=== PATIENT | female | born 1950 | race Caucasian/White ===

== ENCOUNTER 2020-10-17 11:20 | Emergency (ER) | payer OTHER, SELFPAY ==
--- NOTE | ~2020-10-17 | XR_ITS ---
EXAMINATION: XR CHEST CLINICAL INFORMATION: Chest pain and shortness of breath. COMPARISON: None TECHNIQUE: Frontal view of the chest was obtained. FINDINGS: The cardiomediastinal and hilar contours are within normal limits. The aorta is heavily tortuous and heavily calcified at the arch. There is increased airspace opacity at the base of the left lung which is concerning for pneumonia. No large effusion. At the base of the right lung is an approximately 1.1 cm nodular opacity. The right lung is otherwise clear. No pneumothorax. XR/XR chest 1V IMPRESSION: Increased airspace opacity at the base of the left lung is concerning for pneumonia. At the base of the right lung is a 1.1 cm nodular opacity likely be evaluated. Consider evaluation with CT.
--- NOTE | ~2020-10-17 | CT_ITS ---
EXAMINATION: CT ANGIOGRAM OF THE CHEST WITH AND WITHOUT CONTRAST (CT PULMONARY ANGIOGRAM FOR PE) CLINICAL INFORMATION: Reason for Exam CP recent procedure COMPARISON: Chest radiograph done on 10/17/2020. TECHNIQUE: Prior to contrast administration, noncontrast localization images were obtained. Subsequently, multidetector volumetric imaging was performed from the thoracic inlet to below the diaphragms following the administration of 65 mL Omnipaque 350 intravenous contrast. No contrast reaction reported Sagittal, coronal, and MIP oblique sagittal reformatted images were obtained on the CT workstation, uploaded to PACS, and reviewed. This CT examination was performed using dose optimization techniques as appropriate, variously including the following: *Automated exposure control *Adjustment of mA and/or kV according to patient size (this includes techniques or standardized protocols for targeted exams where dose is matched to indication/reason for exam; i.e. extremities or head) *Use of iterative reconstruction technique Total exam dose-length product 209 mGy-cm FINDINGS: QUALITY OF STUDY/CONTRAST BOLUS: Satisfactory. PULMONARY ARTERIES: No central or segmental pulmonary emboli. THORACIC AORTA: No aneurysm or dissection. Moderate to severe diffuse atherosclerotic disease of the aorta and is branches are noted. LUNG: Moderate emphysematous disease is present. Superimposed partial collapse consolidation of the left upper lobe is noted. On this contrast-enhanced study, there is an area of heterogeneous nonenhancement identified along the anterior superior medial aspect of the consolidated part of the left upper lobe, suspicious for neoplasm. Patchy groundglass airspace disease is also noted within the lingular segment of the left upper lobe. Pleural-based somewhat linear enhancing opacities are noted at both lung bases (left greater than right). The tracheobronchial tree is patent however, partial obstruction of the left upper lobar bronchus is noted. PLEURA: Small volume nondrainable left-sided pleural effusion is seen likely loculated on the within the mid left hemithorax. MEDIASTINUM: Normal heart size. No pericardial effusion. Asymmetric left supra, perihilar as well as para-aortic lobulated hypodensities are noted, most consistent with lymphadenopathy. Given the presence of left upper lobar lung parenchymal disease, the finding may represent metastatic lymphadenopathy.. No evidence of septal bowing or right heart strain. Atherosclerotic disease is present within the aorta and is branches including coronary artery calcifications. CHEST WALL/AXILLA: No axillary or internal mammary lymphadenopathy. OSSEOUS STRUCTURES: Nonspecific focal area of osteolysis is present at superolateral aspect of the T1 vertebral body (image #[id number] series 9). Moderate compression deformity of T6 vertebral body is also noted. UPPER ABDOMEN: Multiple hypodense lesions are present involving the left kidney including exophytic hypodensity. The right kidney shows heterogeneous hypoechoic large hypodense areas, may represent complicated cyst. Exophytic solid lesion is not excluded. Evaluation is technically limited. Diffuse hypodensity is noted involving the left adrenal gland appears thickened without any discrete mass. No evidence of any right adrenal mass. No reflux of contrast into the hepatic veins to suggest elevated right heart pressures. CT/CT angio chest PE protocol IMPRESSION: 1. Moderate emphysematous disease and superimposed partial collapse consolidation of left upper lobe of the lung. Evidence of ipsilateral left perihilar, suprahilar and para-aortic mediastinal lymphadenopathy. The findings are suspicious for malignancy. 2. Small volume loculated nondrainable left-sided pleural effusion within the mid part of the left hemithorax. 3. No evidence of any pulmonary thromboembolism. 4. Moderate to severe diffuse atherosclerotic disease of the aorta and is branches including coronary arterial calcifications. 5. Nonspecific focal area of osteolysis at superolateral aspect of T1 vertebral body and moderate compression deformity of T6 vertebral body, of indeterminate etiology 6. Nonspecific thickening of the left adrenal gland and bilateral renal nonspecific hypodense lesions, not optimally characterized. VTE:
[2020-10-17 11:27] VITALS: BP 141/63; PULSE 89; RESP 20; TEMP 36.9; O2SAT 89; BMI 25.0
[2020-10-17 11:37] VITALS: O2SAT 96
--- NOTE | 2020-10-17 11:37 | ECG_ITS ---
Test Reason : CHEST PAIN Blood Pressure : / mmHG Vent. Rate : 083 BPM Atrial Rate : 083 BPM P-R Int : 124 ms QRS Dur : 082 ms QT Int : 376 ms P-R-T Axes : 078 094 178 degrees QTc Int : 441 ms Normal sinus rhythm Rightward axis ST & T wave abnormality, consider anterolateral ischemia Abnormal ECG No previous ECGs available Referred By: Arley Clark Electronically Signed By:JUJU BUTCHER
--- NOTE | 2020-10-17 11:42 | ED_ITS ---
HPI - Chest Pain General Chief Complaint: Chest Pain Stated Complaint: CHEST PAIN Time Seen by Provider: 10/17/20 11:24 Source: patient Mode of arrival: EMS History of Present Illness HPI narrative: This is a 69-year-old female who woke up with substernal chest pain radiating through to her back with associated nausea and shortness of keri th this morning. The patient states that she does believe she has coronary artery disease. She also recently had a procedure done at [facility], last week, which sounds like it was an arterial bypass procedure. The patient is on Plavix. She has a history of hypertension and elevated cholesterol, as well as CHF and COPD. She does still smoke. The patient was given aspirin 324 mg p.o. pre-hospital, as well as nitroglycerin sublingually twice, which improved her chest pain down to 0 at this time. She was initially hypertensive around 200/100. Patient has noted recent swelling in her feet as well as weight gain from 119-124 lb. She says that her Lasix dose was doubled recently. Patient did initially have extreme nausea, as well as some sweats. The patient denies any unilateral leg pain or swelling, denies any pain upon taking a deep breath. She has had a recent cough, which she attributes to congestive heart failure Related Data Allergies Allergy/AdvReac Type Severity Reaction Status Date / Time albuterol [From Ventolin HFA] Allergy Swelling Verified 10/17/20 11:37 lisinopril AdvReac Cough Verified 10/17/20 11:37 Review of Systems Review of Systems: Yes all other systems are reviewed and are negative Constitutional: Constitutional: Reports as per HPI and Denies fever(s) Eyes: Eyes: Reports as per HPI and Reports no additional eye complaints ENT: Reports system reviewed and no additional complaints, except as documented, Reports as per HPI, Denies nasal congestion, Denies nasal discharge and Denies sore throat Cardiovascular: Cardiovascular: Reports as per HPI, Reports chest pain, Reports leg edema and Reports dyspnea Respiratory: Respiratory: Reports as per HPI, Reports cough and Reports dyspnea Gastrointestinal: Gastrointestinal: Reports as per HPI, Denies abdominal pain, Denies diarrhea, Reports nausea and Denies vomiting Genitourinary: Genitourinary: Reports as per HPI, Denies hematuria, Denies urinary frequency and Denies dysuria Musculoskeletal: Musculoskeletal: Reports no additional musculoskeletal complaints and Denies numbness Integumentary/Breasts: Skin/Breast: Reports as per HPI and Denies rash Neurologic: Reports as per HPI, Denies focal weakness, Denies numbness and Denies Sensory deficit (Neuro) Psychiatric: Psychiatric: Reports no additional psychiatric complaints and Reports as per HPI Endocrine: Endocrine: Reports no additional endocrine complaints and Reports as per HPI Hematologic/Lymphatic: Hematologic/Lymphatic: Reports no additional hematologic/lymphatic complaints, Reports as per HPI and Reports other (Peripheral edema) [facility] Past Medical History Medical History (Updated 10/17/20 @ 13:37 by Arley Clark MD) CAD (coronary artery disease) CHF (congestive heart failure) COPD (chronic obstructive pulmonary disease) High cholesterol HTN (hypertension) Social History Social History Advance Directives: No Advance Directives Information Provided: Yes Physical Exam Vital Signs: Vital Signs: Last Vital Signs Temp 98 F 10/17/20 13:33 Pulse 90 10/17/20 13:33 Resp 20 10/17/20 13:33 BP 154/65 H 10/17/20 13:33 Pulse Ox 94 10/17/20 13:33 Body Mass Index 25.0 Const: General: cooperative, no acute distress and alert Orientation/consciousness: patient oriented x3 HENMT: Head: Yes normal to inspection Eyes: General: appearance normal, both eyes and all related structures Eyelids: Yes eyelids normal Conjunctivae: conjunctivae normal Pupils: Equal, round and reactive pupils present Neck: Neck: Yes normal visual inspection and Yes supple Chest: Chest palpation & inspection: normal inspection of the chest Resp: Effort & Inspection: able to speak in complete sentences Auscultation: crackles and diminished lung sounds Cardio: Rate: regular rate Rhythm: regular rhythm Heart sounds: S1 normal heart sound present, S2 normal heart sound present, no gallops, no murmurs and no rubs GI: Palpation (GI): Soft to palpation, nontender and Other GI palpation findi ngs present (Non-distended) Auscultation: normal bowel sounds Skin: General skin exam: no rashes or lesions noted Neuro: General: patient oriented x3, no focal motor deficits and CN's II-XI intact bilaterally Cranial nerves: Yes Equal, round and reactive pupils present Cognition (Neuro): normal cognition Motor exam (neuro): 5/5 motor strength present throughout Sensory Exam: No Sensory deficit (Neuro) Extrem: General: Yes normal to inspection and No no pedal edema (Trace pitting edema of lower legs, ankles and feet) Psych: Appearance: grossly normal Affect: normal affect MDM - Chest Pain MDM Narrative Medical decision making narrative: Patient with acute chest pain with associated nausea and shortness of breath this morning. Patient has had a recent cough, has known CHF. She had a procedure done at [facility] last week. Upon discussion with the printer technician there, Dr. Langley, he reviewed the records and the patient had had a diagnostic procedure to evaluate the vasculature in her right lower extremity last week. EKG did show concerning findings with ST depression and T-wave flattening/inversion, and the patient's troponin has come back elevated. The patient was given aspirin 324 mg pre-hospital, as well as n itroglycerin sublingual, which improved her pain down to 0 1 at 10. In the ED the patient was started on heparin IV bolus and drip. Even though she is pain- free, given her NSTEMI, she is being started on nitroglycerin drip. She does have some continued nausea. She was given Plavix 300 mg p.o.. She was maintained on oxygen as her initial oxygen saturation was in the low 80s on room air. Case was initially discussed with Dr. Love of Cardiology here, stated that the patient could be admitted here however if she has a printer technician at [facility], she could be transferred there. I spoke with Dr. Langely of Cardiology, on-call for Cardiology at [facility], and he said the patient can be so transferred to [facility]. I spoke with Dr. Herzog in the emergency department, who has accepted patient for transfer there. Patient's chest x-ray did show left-sided focal infiltrate and given the patient's recent cough, she is being started on antibiotics for pneumonia, specifically Rocephin and Zithromax. Critical care time for this life-threatening illness exclusive of all other billable procedures was approximately 45 minutes including initial evaluation of the patient, ordering tests, x-ray interpretation, EKG interpretation, medical consultation, documentation, reevaluation. Lab Data Result diagrams: 10/17/20 11:45 10/17/20 11:45 Labs: Lab Results 10/17/20 10/17/20 10/17/20 Range/Units 11:45 11:45 11:45 WBC 6.9 (4.8-10.8) X10*3/uL RBC 4.61 (4.20-5.50) X10*6/uL Hgb 13.7 (12.0-16.0) g/dl Hct 43.9 (37-47) % MCV 95.2 (80-98) fL MCH 29.7 (27.0-33.0) pg MCHC 31.2 (31.0-35.0) g/dl RDW 13.2 (11.0-16.0) % Plt Count 153 L (160-400) X10*3/uL MPV 9.1 L (9.4-12.3) fL Immature Gran % (Auto) 0.3 (0.0-0.4) % Neut % (Auto) 69.9 (45-73) % Lymph % (Auto) 19.1 L (20-40) % [place] % (Auto) 9.3 (2-11) % Eos % (Auto) 1.0 (0-4) % Baso % (Auto) 0.4 (0-2) % Lymph # (Auto) 1.3 (1.2-4.9) X10*3/uL [place] # (Auto) 0.6 (0.1-1.2) X10*3/uL Eos # (Auto) 0.1 (0.0-0.4) X10*3/uL Baso # (Auto) 0.0 (0.0-0.2) X10*3/uL Abs Immat Gran (auto) 0.02 (0.00-0.03) X10*3/uL Absolute Neuts (auto) 4.8 (2.0-8.3) X10*3/uL Absolute Nucleated RBC 0.000 (0.0-0.012) X10*3/uL Nucleated RBC % (auto) 0.0 (0.0-0.2) /100WBC PT (9.9-13.0) SEC INR (0.9-1.1) PTT (Heparin Protocol) (53-77.9) SEC Sodium 142 (135-145) mmol/L Potassium 4.2 (3.3-5.1) mmol/L Chloride 96 (96-108) mmol/L Carbon Dioxide 38 H (22-29) mmol/L Anion Gap 12 (12-20) BUN 17 H (9-16) mg/dL Creatinine 0.80 (0.5-1.4) mg/dL Estim Creat Clear Calc 49.3 Estimated GFR > 60 Random Glucose 122 H (60-115) mg/dL Calcium 8.9 (8.4-10.2) mg/dL Troponin I High Sens 37.7 H* (<3.5-17.0) ng/L B-Natriuretic Peptide 2261 H (<100) pg/mL 10/17/20 Range/Units 12:07 WBC (4.8-10.8) X10*3/uL RBC (4.20-5.50) X10*6/uL Hgb (12.0-16.0) g/dl Hct (37-47) % MCV (80-98) fL MCH (27.0-33.0) pg MCHC (31.0-35.0) g/dl RDW (11.0-16.0) % Plt Count (160-400) X10*3/uL MPV (9.4-12.3) fL Immature Gran % (Auto) (0.0-0.4) % Neut % (Auto) (45-73) % Lymph % (Auto) (20-40) % [place] % (Auto) (2-11) % Eos % (Auto) (0-4) % Baso % (Auto) (0-2) % Lymph # (Auto) (1.2-4.9) X10*3/uL [place] # (Auto) (0.1-1.2) X10*3/uL Eos # (Auto) (0.0-0.4) X10*3/uL Baso # (Auto) (0.0-0.2) X10*3/uL Abs Immat Gran (auto) (0.00-0.03) X10*3/uL Absolute Neuts (auto) (2.0-8.3) X10*3/uL Absolute Nucleated RBC (0.0-0.012) X10*3/uL Nucleated RBC % (auto) (0.0-0.2) /100WBC PT 12.2 (9.9-13.0) SEC INR 1.1 (0.9-1.1) PTT (Heparin Protocol) 23.4 L (53-77.9) SEC Sodium (135-145) mmol/L Potassium (3.3-5.1) mmol/L Chloride (96-108) mmol/L Carbon Dioxide (22-29) mmol/L Anion Gap (12-20) BUN (9-16) mg/dL Creatinine (0.5-1.4) mg/dL Estim Creat Clear Calc Estimated GFR Random Glucose (60-115) mg/dL Calcium (8.4-10.2) mg/dL Troponin I High Sens (<3.5-17.0) ng/L B-Natriuretic Peptide (<100) pg/mL Imaging Data Chest x-ray: Attestation: I personally reviewed and interpreted this imaging study as follows: My impression: Cardiomegaly, focal left-sided lower lung field infiltrate, possible mild vascular congestion CT scan - chest: Radiologist's impression: IMPRESSION: 1. Moderate emphysematous disease and superimposed partial collapse consolidation of left upper lobe of the lung. Evidence of ipsilateral left perihilar, suprahilar and para-aortic mediastinal lymphadenopathy. The findings are suspicious for malignancy. 2. Small volume loculated nondrainable left-sided pleural effusion within the mid part of the left hemithorax. 3. No evidence of any pulmonary thromboembolism. 4. Moderate to severe diffuse atherosclerotic disease of the aorta and is branches including coronary arterial calcifications. 5. Nonspecific focal area of osteolysis at superolateral aspect of T1 vertebral body and moderate compression deformity of T6 vertebral body, of indeterminate etiology 6. Nonspecific thickening of the left adrenal gland and bilateral renal nonspecific hypodense lesions, not optimally characterized. ECG Data ECG #1: Attestation: I personally reviewed and interpreted this ECG as follows: ECG interpretation date: 10/17/20 ECG interpretation time: 11:47 Prior ECG tracings: not available for review Interpretation: Sinus rhythm with a rate of 83. T-wave inversion diffusely in the anterior leads. Q-waves in leads 2 3 and AVF. Right axis deviation. Discharge Plan Discharge Clinical Impression: Acute non-ST elevation myocardial infarction (NSTEMI), Pneumonia Patient Disposition: [facility] Transfer Details: Transfer to [facility] ED, cardiology acceptance Interventions: Acute Care Transfer Worksheet (ED) Last Done: 10/17/20 14:32 Discharge Date/Time: 10/17/20 14:33
[2020-10-17 11:49] LABS: MANUAL DIFF FLAG NO
[2020-10-17 11:50] LABS: Basophils Percent Auto 0.4 % (0-2); Eosinophils Absolute Auto 0.1 X10*3/uL (0.0-0.4); Hematocrit 43.9 % (37-47); Hemoglobin 13.7 g/dl (12.0-16.0); Imm Gran Abs Auto 0.02 X10*3/uL (0.00-0.03); Imm Gran Pct Auto 0.3 % (0.0-0.4); Lymphocytes Absolute Auto 1.3 X10*3/uL (1.2-4.9); Lymphocytes Percent Auto 19.1 % (20-40); Mean Corpuscular HGB Conc 31.2 g/dl (31.0-35.0); Mean Corpuscular Hemoglobin 29.7 pg (27.0-33.0); Mean Corpuscular Volume 95.2 fL (80-98); Mean Platelet Volume 9.1 fL (9.4-12.3); Monocytes Absolute Auto 0.6 X10*3/uL (0.1-1.2); Monocytes Percent Auto 9.3 % (2-11); Neutrophils Absolute Auto 4.8 X10*3/uL (2.0-8.3); Neutrophils Percent Auto 69.9 % (45-73); Platelet Count 153 X10*3/uL (160-400); Red Blood Count 4.61 X10*6/uL (4.20-5.50); Red Cell Distribution Width 13.2 % (11.0-16.0); White Blood Count 6.9 X10*3/uL (4.8-10.8)
[2020-10-17 12:17] LABS: INTERNATIONAL NORM RATIO 1.1 (0.9-1.1); Prothrombin Time 12.2 SEC (9.9-13.0)
[2020-10-17 12:22] LABS: Anion Gap 12 (12-20); Blood Urea Nitrogen 17 mg/dL (9-16); Calcium 8.9 mg/dL (8.4-10.2); Carbon Dioxide 38 mmol/L (22-29); Chloride 96 mmol/L (96-108); Creatinine Clr Calc Pharmacy 49.3; Estimated Glomerular Filt Rate > 60; Glucose Random 122 mg/dL (60-115); Potassium 4.2 mmol/L (3.3-5.1); Sodium 142 mmol/L (135-145)
[2020-10-17 12:22] LABS: PTT Heparin Drip 23.4 SEC (53-77.9)
[2020-10-17 12:25] VITALS: BP 138/59; PULSE 72; RESP 21; TEMP 36.9; O2SAT 95
[2020-10-17 12:33] LABS: B Type Natriuretic Peptide 2261 pg/mL (<100); Troponin-I High Sensitivity 37.7 ng/L (<3.5-17.0)
[2020-10-17] MEDS: Heparin Sodium,Porcine/1/2NS 25,000 UNIT/250 ML IV.SOLN 6.75 UNIT IVCONT (12:44)
[2020-10-17] MEDS: Heparin Sodium,Porcine 5,000 UNIT/ML VIAL 3400 UNIT IVPUSH (12:45)
[2020-10-17 12:47] VITALS: BP 148/61; PULSE 86; RESP 18; O2SAT 95
[2020-10-17] MEDS: cefTRIAXone sodium 1 GM in 0.9 % Sodium Chloride 50 ML IV (13:32)
[2020-10-17] MEDS: iohexoL 350 MG/ML 100 ML INFUS..BTL IV (13:32)
[2020-10-17 13:33] VITALS: BP 154/65; PULSE 90; RESP 20; TEMP 36.6; O2SAT 94
[2020-10-17] MEDS: Clopidogrel Bisulfate 300 MG TABLET PO (14:02)
[2020-10-17] MEDS: Azithromycin 500 MG in 0.9 % Sodium Chloride 250 ML 125 MG IV (14:22)
== END 2020-10-17 14:33 | disposition short-term general hospital (02) ==
PROVIDERS: Emergency Provider Emergency Medicine; PCP Internal Medicine
DX: I21.4 Non-ST elevation (NSTEMI) myocardial infarction (principal); J18.9 Pneumonia, unspecified organism; I11.0 Hypertensive heart disease with heart failure; I50.9 Heart failure, unspecified; I25.10 Atherosclerotic heart disease of native coronary artery without angina pectoris; J44.9 Chronic obstructive pulmonary disease, unspecified; Z79.02 Long term (current) use of antithrombotics/antiplatelets
CPT/HCPCS: 36415; 71045; 71275; 80048; 83880; 84484; 85025; 85610; 85730; 93005; 96365; 96366; 96367; 96368; 96375; 99285; 99291; J0456; J0696; Q9967

== ENCOUNTER 2020-11-21 11:32 | Inpatient (IN) | payer MEDICARE, SELFPAY ==
[2020-11-21] VITALS (9 sets, daily range): BP systolic 112–139; BP diastolic 45–64; PULSE 95–110; RESP 16–23; TEMP 36.6–37.1; O2SAT 87–96; BMI 23.2
--- NOTE | ~2020-11-21 | CT_ITS ---
EXAMINATION: CT CHEST WITHOUT CONTRAST CLINICAL INFORMATION: An Plymale versus pneumonia. COMPARISON: Chest x-ray 11/21/2020 TECHNIQUE: Multidetector volumetric CT imaging of the chest was done. Axial MIP volume rendering provided. Sagittal and coronal reformatted images were obtained. This CT examination was performed using dose optimization techniques as appropriate, variously including the following: *Automated exposure control *Adjustment of mA and/or kV according to patient size (this includes techniques or standardized protocols for targeted exams where dose is matched to indication/reason for exam; i.e. extremities or head) *Use of iterative reconstruction technique DLP: 267 mGy-cm FINDINGS: AUDITING MANAGER: Abnormal left lower and midlung. LUNGS: The lungs are well-expanded with a large left lingular and scattered minimal lower lobe consolidation and/or atelectasis. Minimal atelectatic changes seen in the right lung base. The left lower lobe consolidation appears very heterogeneous. Underlying infiltrating mass is not excluded. There is no suggestion for empyema. There is diffuse centrilobular emphysema with a 6 mm linear density right middle lobe and a subpleural tubular density right lower lobe axial image 34/4. MEDIASTINUM: The heart size is normal. There are coronary and valvular calcifications. Minimal pericardial effusion seen. Central trachea and the bronchi widely patent. There are abnormal precarinal and Collateral lymph nodes with the largest lymph node measuring 1.2 cm in short axis and 2.1 cm in long axis axial image 27/3. PLEURA: There is minimal left pleural effusion without any calcification. No pneumothorax. AXILLA: No lymphadenopathy. UPPER ABDOMEN: There are bilateral renal cysts and likely renal calculi. There are several hypodense liver lesions, suspicious. The largest is 1.5 cm right hepatic lobe image 60/3. OSSEOUS STRUCTURES: No lytic or sclerotic process seen. CT/CT chest wo con IMPRESSION: Large left lingular mass/consolidation highly suspicious for malignancy. There is heterogeneous with abnormal mediastinal lymph nodes. The findings have progressed since CT chest 10/17/2020. Recommend and a bronchoscopy or CT-guided biopsy. Likely bilateral renal cysts and bilateral renal calculi. Multiple hypodense liver lesions likely metastatic unless proven otherwise.
--- NOTE | ~2020-11-21 | XR_ITS ---
EXAMINATION: XR CHEST CLINICAL INFORMATION: SOB and cough COMPARISON: Chest 10/17/2020 TECHNIQUE: Frontal view of the chest was obtained. FINDINGS: The lungs are expanded with persistent enlarging pleural-based consolidation left mid and lower lobe. Patchy opacity seen in lingula and medial basal segment left lower lobe. The heart size is likely normal. Increased vascularity is noted in both lungs. There is mild dextroscoliosis. No gross bony abnormality seen. XR/XR chest 1V IMPRESSION: Increasing left lower lobe pleural-based consolidation slightly worse since 10/17/2020. Moderate opacification of the left lower lobe medial basal segment and lingular segments are noted.
--- NOTE | 2020-11-21 11:52 | ED.URI ---
HPI - URI/Sore Throat General Chief Complaint: Upper Respiratory Symptoms Stated Complaint: sob Time Seen by Provider: 11/21/20 11:52 Source: patient Mode of arrival: ambulatory Limitations: no limitations History of Present Illness HPI Narrative: 70-year-old female with a past medical history of coronary artery disease, congestive heart failure, COPD on home oxygen, hypertension, hyperlipidemia, pneumonia, who had an NSTEMI in October 2020, and who was recently placed on Lasix and home oxygen, presents for 1 week of cough, worsening shortness of breath, and 2 weeks of chest pain radiating to her back and her neck. Her cough developed 1 week ago, and she is bringing up yellow sputum. Patient states she was sent home from [facility] where she was treated for her NSTEMI in October on home oxygen, and did not have to use oxygen constantly when first released, but in the last couple of weeks has had to use the oxygen constantly. For the last 2 weeks she has felt short of breath, and has constant chest pain radiating to her back for 2 weeks. The chest pain feels like a constant stabbing in her lower sternum radiating to her back. Her right foot is swollen. She is not on anticoagulation. No fevers, no nausea, no vomiting or diarrhea, no sweating. Related Data Allergies Allergy/AdvReac Type Severity Reaction Status Date / Time lisinopril AdvReac Cough Verified 11/21/20 11:34 Review of Systems Constitutional: Constitutional: Denies body ache(s), Denies chills, Reports fatigue, Denies fever(s), Denies headache(s), Reports malaise and Denies weakness Eyes: Eyes: Denies change in vision and Denies diplopia ENT: Denies vertigo, Denies dizziness, Denies otalgia, Denies headache(s), Denies mouth pain, Reports nasal discharge, Reports neck pain, Denies sinus pain and Denies sore throat Cardiovascular: Cardiovascular: Reports chest pain, Reports chest pain at rest, Denies Epigastric Pain, Denies syncope, Reports pedal edema, Denies leg edema, Denies lightheadedness, Denies Loss of Consciousness, Denies palpitations and Reports dyspnea Respiratory: Respiratory: Reports chest congestion, Reports cough, Denies hemoptysis, Denies pain on inspiration and Reports dyspnea Gastrointestinal: Gastrointestinal: Denies abdominal pain, Denies hematochezia, Denies constipation, Denies diarrhea, Denies nausea and Denies vomiting Genitourinary: Genitourinary: Reports no additional female genitourinary complaints Musculoskeletal: Musculoskeletal: Reports back pain and Reports neck pain Integumentary/Breasts: Comments: right foot swelling Neurologic: Denies confusion, Denies vertigo, Denies dizziness, Denies syncope, Denies headache(s), Denies focal weakness, Denies Sensory deficit (Neuro) and Denies weakness Psychiatric: Psychiatric: Denies anxiety, Denies confusion and Denies depression Endocrine: Endocrine: Reports fatigue and Denies palpitations Hematologic/Lymphatic: Hematologic/Lymphatic: Denies easy bleeding PMFSH Past Medical History Medical History CAD (coronary artery disease) CHF (congestive heart failure) COPD (chronic obstructive pulmonary disease) High cholesterol HTN (hypertension) Social History Social History Patient Tobacco Use Status: Former Tobacco user Use of substances other than those prescribed or required for medical reasons: No Advance Directives: Yes Advance Directives Information Provided: Yes Advance Directives on File: No Physical Exam Vital Signs: Vital Signs: Last Vital Signs Temp 98.8 F 11/21/20 15:19 Pulse 95 11/21/20 15:19 Resp 22 H 11/21/20 15:19 BP 139/57 L 11/21/20 15:19 Pulse Ox 96 11/21/20 15:19 Oxygen Flow Rate 2 11/21/20 11:34 Body Mass Index 23.2 Const: General: no acute distress, alert and awake; No confusion Nutritional Appearance: thin Orientation/consciousness: patient oriented x3 and No confusion Limitations: no limitations HENMT: Head: Yes normal to inspection, Yes normocephalic and Yes atraumatic Ears: hearing grossly normal bilaterally and external ears normal General nose exam: Normal external nose present Face and sinus: Yes normal facial exam Mouth: Normal oral and palatal mucosa present Throat: Yes posterior oropharynx normal Eyes: Conjunctivae: conjunctivae normal Pupils: Equal, round and reactive pupils present EOM: EOMs intact bilaterally Neck: Neck: Yes full ROM, Yes no lymphadenopathy, Yes no meningeal signs and Yes supple Chest: Other: Tender to palpate over bilateral sternal costal junction Resp: Effort & Inspection: able to speak in complete sentences, audible wheezes, no respiratory distress, no retractions and tachypneic Auscultation: no crackles, no rales, rhonchi throughout and wheezes throughout Cardio: Rate: tachycardic Rhythm: regular rhythm Heart sounds: S1 normal heart sound present and S2 normal heart sound present GI: Inspection: Yes normal to inspection Palpation (GI): Soft to palpation, nontender, no guarding and not rigid Percussion: Yes normal to percussion Auscultation: normal bowel sounds Skin: Other: Mild erythema and edema to right foot Neuro: General: patient oriented x3, moves all extremities, no meningeal signs, no focal motor deficits and No confusion Cranial nerves: Yes Equal, round and reactive pupils present Sensory Exam: No Sensory deficit (Neuro) Extrem: Right lower extremity: full ROM, normal capillary refill and foot Details: normal capillary refill and edema Location: diffusely Details: non-pitting and 1+; Negative for no unusual warmth, no ecchymosis and no crepitus Psych: Appearance: grossly normal Affect: normal affect Attitude: cooperative Thought process: Normal thought process present Course Course Course Narrative: 70-year-old female with past medical history of coronary artery disease with NSTEMI in October 2020, COPD recently placed on home oxygen, congestive heart failure recently started on Lasix, hypertension hyperlipidemia, presents for worsening shortness of breath, 2 weeks of constant chest pain radiating to her back, and 1 week of cough productive of sputum. On exam, patient has audible wheezes, lungs had are wheezy and rhonchorous throughout. Patient is tachypneic at 22 and tachycardic at 110 Will get chest x-ray, labs, BNP, EKG, troponin, lactate, blood culture. Patient has no leukocytosis, her platelets are 151. Normal coags. Patient's BNP is 333, patient's BNP was 2261 last month. Patient is COVID negative on rapid antigen, rarely repeat COVID with respiratory panel including flu. Lactic acid 1.1 Patient's initial troponin is 11.3 will repeat at delta 3 hours. EKG shows normal sinus at a rate of 96, IN interval 134, QRS 78, QTC 427. Patient has normal axis. Nonspecific ST and T-wave abnormalities, no ST elevations or depressions. CXR shows Increasing left lower lobe pleural-based consolidation slightly worse since 10/17/2020. Moderate opacification of the left lower lobe medial basal segment and lingular segments are noted. Started antibiotics, will get CT chest non con to further image chest pathology Chest CT shows worsening mass Patient given Solu-Medrol breathing treatment, Lasix, admitted here MDM - URI/Sore Throat MDM Narrative Medical decision making narrative: Congestive heart failure, unstable angina, pneumonia, COPD exacerbation Lab Data Result diagrams: 11/21/20 12:36 11/21/20 12:36 Labs: Lab Results 11/21/20 11/21/20 11/21/20 Range/Units 12:35 12:35 12:36 WBC 8.3 (4.8-10.8) X10*3/uL RBC 4.45 (4.20-5.50) X10*6/uL Hgb 13.4 (12.0-16.0) g/dl Hct 42.4 (37-47) % MCV 95.3 (80-98) fL MCH 30.1 (27.0-33.0) pg MCHC 31.6 (31.0-35.0) g/dl RDW 13.8 (11.0-16.0) % Plt Count 151 L (160-400) X10*3/uL MPV 9.7 (9.4-12.3) fL Immature Gran % (Auto) 0.1 (0.0-0.4) % Neut % (Auto) 62.6 (45-73) % Lymph % (Auto) 15.0 L (20-40) % Bladen % (Auto) 9.9 (2-11) % Eos % (Auto) 11.9 H (0-4) % Baso % (Auto) 0.5 (0-2) % Lymph # (Auto) 1.3 (1.2-4.9) X10*3/uL Bladen # (Auto) 0.8 (0.1-1.2) X10*3/uL Eos # (Auto) 1.0 H (0.0-0.4) X10*3/uL Baso # (Auto) 0.0 (0.0-0.2) X10*3/uL Abs Immat Gran (auto) 0.01 (0.00-0.03) X10*3/uL Absolute Neuts (auto) 5.2 (2.0-8.3) X10*3/uL Absolute Nucleated RBC 0.000 (0.0-0.012) X10*3/uL Nucleated RBC % (auto) 0.0 (0.0-0.2) /100WBC PT 11.9 (9.9-13.0) SEC INR 1.0 (0.9-1.1) APTT 30.9 (24.1-38.0) SEC Sodium (135-145) mmol/L Potassium (3.3-5.1) mmol/L Chloride (96-108) mmol/L Carbon Dioxide (22-29) mmol/L Anion Gap (12-20) BUN (9-16) mg/dL Creatinine (0.5-1.4) mg/dL Estim Creat Clear Calc Estimated GFR Random Glucose (60-115) mg/dL Lactic Acid 1.1 (0.5-2.0) mmol/L Calcium (8.4-10.2) mg/dL Total Bilirubin (0.0-1.0) mg/dL AST (5-31) U/L ALT (0-31) U/L Alkaline Phosphatase (39-117) U/L Troponin I High Sens (<3.5-17.0) ng/L B-Natriuretic Peptide (<100) pg/mL Total Protein (6.5-8.0) g/dL Albumin (3.5-5.0) g/dL Respiratory Panel Canales Adenovirus (Rapid PCR) (Not Detect.) B.pert (TEM-PCR) (Not Detect.) B.parapertussis DNA PCR (Not Detect.) C. pneumoniae DNA (PCR) (Not Detect.) Coronavirus OC43 (PCR) (Not Detect.) Coronavirus HKU1 (PCR) (Not Detect.) Coronavirus 229E (PCR) (Not Detect.) COVID-19 (SUN) (Negative) COVID-19 Clin Com Coronavirus NL63 (PCR) (Not Detect.) Human Metapneumovir PCR (Not Detect.) Influenza A (RT-PCR) (Not Detect.) Influenza B (RT-PCR) (Not Detect.) M. pneumoniae (PCR) (Not Detect.) Parainfluenza 1 (PCR) (Not Detect.) Parainfluenza 2 (PCR) (Not Detect.) Parainfluenza 3 (PCR) (Not Detect.) Parainfluenza 4 (PCR) (Not Detect.) RSV (PCR) (Not Detect.) Entero/Rhino (PCR) (Not Detect.) SARS-CoV-2 RNA (RT-PCR) (Not Detect.) 11/21/20 11/21/20 11/21/20 Range/Units 12:36 12:36 12:36 WBC (4.8-10.8) X10*3/uL RBC (4.20-5.50) X10*6/uL Hgb (12.0-16.0) g/dl Hct (37-47) % MCV (80-98) fL MCH (27.0-33.0) pg MCHC (31.0-35.0) g/dl RDW (11.0-16.0) % Plt Count (160-400) X10*3/uL MPV (9.4-12.3) fL Immature Gran % (Auto) (0.0-0.4) % Neut % (Auto) (45-73) % Lymph % (Auto) (20-40) % Bladen % (Auto) (2-11) % Eos % (Auto) (0-4) % Baso % (Auto) (0-2) % Lymph # (Auto) (1.2-4.9) X10*3/uL Bladen # (Auto) (0.1-1.2) X10*3/uL Eos # (Auto) (0.0-0.4) X10*3/uL Baso # (Auto) (0.0-0.2) X10*3/uL Abs Immat Gran (auto) (0.00-0.03) X10*3/uL Absolute Neuts (auto) (2.0-8.3) X10*3/uL Absolute Nucleated RBC (0.0-0.012) X10*3/uL Nucleated RBC % (auto) (0.0-0.2) /100WBC PT (9.9-13.0) SEC INR (0.9-1.1) APTT (24.1-38.0) SEC Sodium 142 (135-145) mmol/L Potassium 4.7 (3.3-5.1) mmol/L Chloride 96 (96-108) mmol/L Carbon Dioxide 38 H (22-29) mmol/L Anion Gap 13 (12-20) BUN 16 (9-16) mg/dL Creatinine 0.78 (0.5-1.4) mg/dL Estim Creat Clear Calc 48.1 Estimated GFR > 60 Random Glucose 121 H (60-115) mg/dL Lactic Acid (0.5-2.0) mmol/L Calcium 9.1 (8.4-10.2) mg/dL Total Bilirubin 0.3 (0.0-1.0) mg/dL AST 24 (5-31) U/L ALT 15 (0-31) U/L Alkaline Phosphatase 62 (39-117) U/L Troponin I High Sens 11.3 D (<3.5-17.0) ng/L B-Natriuretic Peptide 333 H (<100) pg/mL Total Protein 6.5 (6.5-8.0) g/dL Albumin 3.5 (3.5-5.0) g/dL Respiratory Panel Canales Adenovirus (Rapid PCR) (Not Detect.) B.pert (TEM-PCR) (Not Detect.) B.parapertussis DNA PCR (Not Detect.) C. pneumoniae DNA (PCR) (Not Detect.) Coronavirus OC43 (PCR) (Not Detect.) Coronavirus HKU1 (PCR) (Not Detect.) Coronavirus 229E (PCR) (Not Detect.) COVID-19 (SUN) Negative (Negative) COVID-19 Clin Com See Note Coronavirus NL63 (PCR) (Not Detect.) Human Metapneumovir PCR (Not Detect.) Influenza A (RT-PCR) (Not Detect.) Influenza B (RT-PCR) (Not Detect.) M. pneumoniae (PCR) (Not Detect.) Parainfluenza 1 (PCR) (Not Detect.) Parainfluenza 2 (PCR) (Not Detect.) Parainfluenza 3 (PCR) (Not Detect.) Parainfluenza 4 (PCR) (Not Detect.) RSV (PCR) (Not Detect.) Entero/Rhino (PCR) (Not Detect.) SARS-CoV-2 RNA (RT-PCR) (Not Detect.) 11/21/20 Range/Units 14:30 WBC (4.8-10.8) X10*3/uL RBC (4.20-5.50) X10*6/uL Hgb (12.0-16.0) g/dl Hct (37-47) % MCV (80-98) fL MCH (27.0-33.0) pg MCHC (31.0-35.0) g/dl RDW (11.0-16.0) % Plt Count (160-400) X10*3/uL MPV (9.4-12.3) fL Immature Gran % (Auto) (0.0-0.4) % Neut % (Auto) (45-73) % Lymph % (Auto) (20-40) % Bladen % (Auto) (2-11) % Eos % (Auto) (0-4) % Baso % (Auto) (0-2) % Lymph # (Auto) (1.2-4.9) X10*3/uL Bladen # (Auto) (0.1-1.2) X10*3/uL Eos # (Auto) (0.0-0.4) X10*3/uL Baso # (Auto) (0.0-0.2) X10*3/uL Abs Immat Gran (auto) (0.00-0.03) X10*3/uL Absolute Neuts (auto) (2.0-8.3) X10*3/uL Absolute Nucleated RBC (0.0-0.012) X10*3/uL Nucleated RBC % (auto) (0.0-0.2) /100WBC PT (9.9-13.0) SEC INR (0.9-1.1) APTT (24.1-38.0) SEC Sodium (135-145) mmol/L Potassium (3.3-5.1) mmol/L Chloride (96-108) mmol/L Carbon Dioxide (22-29) mmol/L Anion Gap (12-20) BUN (9-16) mg/dL Creatinine (0.5-1.4) mg/dL Estim Creat Clear Calc Estimated GFR Random Glucose (60-115) mg/dL Lactic Acid (0.5-2.0) mmol/L Calcium (8.4-10.2) mg/dL Total Bilirubin (0.0-1.0) mg/dL AST (5-31) U/L ALT (0-31) U/L Alkaline Phosphatase (39-117) U/L Troponin I High Sens (<3.5-17.0) ng/L B-Natriuretic Peptide (<100) pg/mL Total Protein (6.5-8.0) g/dL Albumin (3.5-5.0) g/dL Respiratory Panel Canales See Note Adenovirus (Rapid PCR) Not Detected (Not Detect.) B.pert (TEM-PCR) Not Detected (Not Detect.) B.parapertussis DNA PCR Not Detected (Not Detect.) C. pneumoniae DNA (PCR) Not Detected (Not Detect.) Coronavirus OC43 (PCR) Not Detected (Not Detect.) Coronavirus HKU1 (PCR) Not Detected (Not Detect.) Coronavirus 229E (PCR) Not Detected (Not Detect.) COVID-19 (SUN) (Negative) COVID-19 Clin Com Coronavirus NL63 (PCR) Not Detected (Not Detect.) Human Metapneumovir PCR Not Detected (Not Detect.) Influenza A (RT-PCR) Not Detected (Not Detect.) Influenza B (RT-PCR) Not Detected (Not Detect.) M. pneumoniae (PCR) Not Detected (Not Detect.) Parainfluenza 1 (PCR) Not Detected (Not Detect.) Parainfluenza 2 (PCR) Not Detected (Not Detect.) Parainfluenza 3 (PCR) Not Detected (Not Detect.) Parainfluenza 4 (PCR) Not Detected (Not Detect.) RSV (PCR) Not Detected (Not Detect.) Entero/Rhino (PCR) Not Detected (Not Detect.) SARS-CoV-2 RNA (RT-PCR) Not Detected (Not Detect.) ECG Data Interpretation: EKG shows normal sinus at a rate of 96, IN interval 134, QRS 78, QTC 427. Patient has normal axis. Nonspecific ST and T-wave abnormalities, no ST elevations or depressions. Discharge Plan Discharge Clinical Impression: Lung mass Pneumonia Qualifiers: Pneumonia type: due to unspecified organism Laterality: left Lung location: lower lobe of lung Qualified Code(s): J18.9 - Pneumonia, unspecified organism Patient Disposition: Admitted As Inpatient
--- NOTE | 2020-11-21 12:14 | ECG_ITS ---
Test Reason : SOB Blood Pressure : / mmHG Vent. Rate : 092 BPM Atrial Rate : 092 BPM P-R Int : 130 ms QRS Dur : 080 ms QT Int : 352 ms P-R-T Axes : 071 050 029 degrees QTc Int : 435 ms Normal sinus rhythm ST & T wave abnormality, consider lateral ischemia Abnormal ECG When compared with ECG of 17-OCT-2020 11:38, T wave inversion no longer evident in Anterior leads Referred By: Shwetha Walker Electronically Signed By:FRITZ SCALES
[2020-11-21 12:43] LABS: MANUAL DIFF FLAG NO
[2020-11-21 12:44] LABS: Basophils Percent Auto 0.5 % (0-2); Eosinophils Percent Auto 11.9 % (0-4); Hematocrit 42.4 % (37-47); Hemoglobin 13.4 g/dl (12.0-16.0); Imm Gran Abs Auto 0.01 X10*3/uL (0.00-0.03); Imm Gran Pct Auto 0.1 % (0.0-0.4); Lymphocytes Absolute Auto 1.3 X10*3/uL (1.2-4.9); Mean Corpuscular HGB Conc 31.6 g/dl (31.0-35.0); Mean Corpuscular Hemoglobin 30.1 pg (27.0-33.0); Mean Corpuscular Volume 95.3 fL (80-98); Mean Platelet Volume 9.7 fL (9.4-12.3); Monocytes Absolute Auto 0.8 X10*3/uL (0.1-1.2); Monocytes Percent Auto 9.9 % (2-11); Neutrophils Absolute Auto 5.2 X10*3/uL (2.0-8.3); Neutrophils Percent Auto 62.6 % (45-73); Platelet Count 151 X10*3/uL (160-400); Red Blood Count 4.45 X10*6/uL (4.20-5.50); Red Cell Distribution Width 13.8 % (11.0-16.0); White Blood Count 8.3 X10*3/uL (4.8-10.8)
[2020-11-21 12:50] LABS: Prothrombin Time 11.9 SEC (9.9-13.0)
[2020-11-21 12:53] LABS: Partial Thromboplastin Time 30.9 SEC (24.1-38.0)
[2020-11-21 13:05] LABS: Lactic Acid 1.1 mmol/L (0.5-2.0)
[2020-11-21 13:07] LABS: COVID-19 Test Negative (Negative); IDNOW Serial# 9DD0AD1C
[2020-11-21 13:12] LABS: Alanine Aminotransferase 15 U/L (0-31); Albumin Level 3.5 g/dL (3.5-5.0); Alkaline Phosphatase 62 U/L (39-117); Anion Gap 13 (12-20); Aspartate Amino Transferase 24 U/L (5-31); Bilirubin Total 0.3 mg/dL (0.0-1.0); Blood Urea Nitrogen 16 mg/dL (9-16); Calcium 9.1 mg/dL (8.4-10.2); Carbon Dioxide 38 mmol/L (22-29); Chloride 96 mmol/L (96-108); Creatinine Clr Calc Pharmacy 48.1; Estimated Glomerular Filt Rate > 60; Glucose Random 121 mg/dL (60-115); Potassium 4.7 mmol/L (3.3-5.1); Sodium 142 mmol/L (135-145); Total Protein 6.5 g/dL (6.5-8.0)
[2020-11-21 13:16] LABS: B Type Natriuretic Peptide 333 pg/mL (<100); Troponin-I High Sensitivity 11.3 ng/L (<3.5-17.0)
[2020-11-21] MEDS: 0.9 % Sodium Chloride 1,000 ML 999 ML IV (14:37)
[2020-11-21] MEDS: cefTRIAXone sodium 1 GM in 0.9 % Sodium Chloride 50 ML IV (14:37)
[2020-11-21 14:38] LABS: Adenovirus PCR Not Detected (Not Detect.); Bordetella parapertussis PCR Not Detected (Not Detect.); Bordetella pertussis PCR Not Detected (Not Detect.); Chlamydia pneumoniae PCR Not Detected (Not Detect.); Coronavirus 229E PCR Not Detected (Not Detect.); Coronavirus HKU1 PCR Not Detected (Not Detect.); Coronavirus NL63 PCR Not Detected (Not Detect.); Coronavirus OC43 PCR Not Detected (Not Detect.); Human metapneumovirus PCR Not Detected (Not Detect.); Influenza A PCR Not Detected (Not Detect.); Influenza B PCR Not Detected (Not Detect.); Mycoplasma pneumoniae PCR Not Detected (Not Detect.); Parainfluenza 1 PCR Not Detected (Not Detect.); Parainfluenza 2 PCR Not Detected (Not Detect.); Parainfluenza 3 PCR Not Detected (Not Detect.); Parainfluenza 4 PCR Not Detected (Not Detect.); RSV PCR Not Detected (Not Detect.); Rhino/Enterovirus PCR Not Detected (Not Detect.); SARS-CoV-2 PCR Not Detected (Not Detect.)
[2020-11-21] MEDS: Azithromycin 500 MG in 0.9 % Sodium Chloride 250 ML 125 MG IV (15:16)
[2020-11-21] MEDS: Albuterol/Iprat 2.5/0.5MG 3 ML AMPUL.NEB INHALE ×2 (16:14→20:07)
[2020-11-21] MEDS: Furosemide 20 MG/2 ML VIAL IVPUSH (16:17)
[2020-11-21] MEDS: methylPREDNISolone Sod Succ 125 MG/2 ML VIAL IVPUSH (16:17)
--- NOTE | 2020-11-21 16:43 | P.HPHOSP_ITS ---
History of Present Illness Date of Service: 11/21/20 Chief Complaint: Shortness of breath This is a 70-year-old female who presents to the hospital with complaints of shortness of breath. She was seen in the ED on October 17 and diagnosed with pneumonia and NSTEMI. She was transferred to [facility] and treated for 3 days. She is unsure what she was treated for other than pneumonia. She was discharged home with antibiotics and was feeling better until about 1 week ago. Since that time she has been having increasing shortness of breath even with minimal exertion. She denies any chest pain. She has had a cough productive of yellow phlegm. She denies associated fever or chills. She denies any recent sick contacts. In the emergency department her oxygen saturation was 87% on room air. She underwent CT scan of her lungs which showed large left lingular mass/consolidation highly suspicious for malignancy with associated multiple liver lesions likely metastatic. She denies any recent weight loss. She reports a known history of COPD for which she uses ProAir. Given her hypoxia and respiratory symptoms the decision was made to admit her for further management. Review of Systems Review of Systems: Yes all other systems are reviewed and are negative Constitutional: Constitutional: Denies chills and Denies fever(s) Cardiovascular: Cardiovascular: Denies chest pain and Reports dyspnea Respiratory: Respiratory: Reports cough and Reports dyspnea Gastrointestinal: Gastrointestinal: Denies abdominal pain [facility] Medical History CAD (coronary artery disease) CHF (congestive heart failure) COPD (chronic obstructive pulmonary disease) High cholesterol HTN (hypertension) Functional capacity: independent ambulation Pertinent family history: h/o liver disease Social History Patient Tobacco Use Status: Former Tobacco user Use of substances other than those prescribed or required for medical reasons: No Advance Directives: Yes Advance Directives Information Provided: Yes Advance Directives on File: No Meds Allergies Allergy/AdvReac Type Severity Reaction Status Date / Time lisinopril AdvReac Cough Verified 11/21/20 11:34 Home Medications Medication Instructions Recorded Confirmed Last Taken Type Caltrate 600 plus D 1 tab PO DAILY 11/21/20 11/21/20 Unknown History aspirin 81 mg tablet 81 mg PO DAILY 11/21/20 11/21/20 Unknown History atorvastatin 80 mg tablet 80 mg PO DAILY 11/21/20 11/21/20 Unknown History carvedilol 6.25 mg tablet 6.25 mg PO BID 11/21/20 11/21/20 Unknown History fluticasone propionate 50 1 spray INTRANASAL DAILY 11/21/20 11/21/20 Unknown History mcg/actuation nasal spray,suspension furosemide 20 mg tablet 20 mg PO DAILY 11/21/20 11/21/20 Unknown History loratadine 10 mg tablet (Claritin) 10 mg PO DAILY 11/21/20 11/21/20 Unknown History losartan 25 mg tablet 25 mg PO DAILY 11/21/20 11/21/20 Unknown History magnesium 1 tab PO DAILY 11/21/20 11/21/20 Unknown History Physical Exam Vital Signs and Narrative: Vital Signs: Last Vital Signs Temp 98.8 F 11/21/20 15:19 Pulse 104 H 11/21/20 16:14 Resp 22 H 11/21/20 15:19 BP 139/57 L 11/21/20 15:19 Pulse Ox 87 L 11/21/20 16:16 Oxygen Flow Rate 2 11/21/20 11:34 Body Mass Index 23.2 Const: General: alert and awake Nutritional Appearance: well nourished Orientation/consciousness: patient oriented x3 HENMT: Head: Yes normocephalic and Yes atraumatic Eyes: Sclerae: sclerae normal Chest: Chest palpation & inspection: normal inspection of the chest Resp: Other: Diminished breath sounds. No rhonchi no wheezes Effort & Inspection: Actively coughing and tachypneic Cardio: Rate: regular rate and tachycardic Rhythm: regular rhythm GI: Palpation (GI): Soft to palpation and nontender Neuro: General: patient oriented x3 Cranial nerves: Yes CN's II-XII intact bilaterally and Yes Bilaterally intact EOM present Extrem: Other: Scattered areas of dry skin on bilateral shins Results Labs CBC and Chem 7: 11/21/20 12:36 11/21/20 12:36 Labs: Laboratory Results - last 24 hr 11/21/20 11/21/20 11/21/20 12:35 12:35 12:36 MCV 95.3 MCH 30.1 MCHC 31.6 RDW 13.8 Plt Count 151 L MPV 9.7 Immature Gran % (Auto) 0.1 Neut % (Auto) 62.6 Lymph % (Auto) 15.0 L [place] % (Auto) 9.9 Eos % (Auto) 11.9 H Baso % (Auto) 0.5 Lymph # (Auto) 1.3 [place] # (Auto) 0.8 Eos # (Auto) 1.0 H Baso # (Auto) 0.0 Abs Immat Gran (auto) 0.01 Absolute Neuts (auto) 5.2 Absolute Nucleated RBC 0.000 Nucleated RBC % (auto) 0.0 PT 11.9 INR 1.0 APTT 30.9 Anion Gap Estim Creat Clear Calc Estimated GFR Random Glucose Lactic Acid 1.1 Calcium Total Bilirubin AST ALT Alkaline Phosphatase Troponin I High Sens B-Natriuretic Peptide Total Protein Albumin Respiratory Panel Canales Adenovirus (Rapid PCR) B.pert (TEM-PCR) B.parapertussis DNA PCR C. pneumoniae DNA (PCR) Coronavirus OC43 (PCR) Coronavirus HKU1 (PCR) Coronavirus 229E (PCR) COVID-19 (SUN) COVID-19 Clin Com Coronavirus NL63 (PCR) Human Metapneumovir PCR Influenza A (RT-PCR) Influenza B (RT-PCR) M. pneumoniae (PCR) Parainfluenza 1 (PCR) Parainfluenza 2 (PCR) Parainfluenza 3 (PCR) Parainfluenza 4 (PCR) RSV (PCR) Entero/Rhino (PCR) SARS-CoV-2 RNA (RT-PCR) 11/21/20 11/21/20 11/21/20 12:36 12:36 12:36 MCV MCH MCHC RDW Plt Count MPV Immature Gran % (Auto) Neut % (Auto) Lymph % (Auto) [place] % (Auto) Eos % (Auto) Baso % (Auto) Lymph # (Auto) [place] # (Auto) Eos # (Auto) Baso # (Auto) Abs Immat Gran (auto) Absolute Neuts (auto) Absolute Nucleated RBC Nucleated RBC % (auto) PT INR APTT Anion Gap 13 Estim Creat Clear Calc 48.1 Estimated GFR > 60 Random Glucose 121 H Lactic Acid Calcium 9.1 Total Bilirubin 0.3 AST 24 ALT 15 Alkaline Phosphatase 62 Troponin I High Sens 11.3 D B-Natriuretic Peptide 333 H Total Protein 6.5 Albumin 3.5 Respiratory Panel Canales Adenovirus (Rapid PCR) B.pert (TEM-PCR) B.parapertussis DNA PCR C. pneumoniae DNA (PCR) Coronavirus OC43 (PCR) Coronavirus HKU1 (PCR) Coronavirus 229E (PCR) COVID-19 (SUN) Negative COVID-19 Clin Com See Note Coronavirus NL63 (PCR) Human Metapneumovir PCR Influenza A (RT-PCR) Influenza B (RT-PCR) M. pneumoniae (PCR) Parainfluenza 1 (PCR) Parainfluenza 2 (PCR) Parainfluenza 3 (PCR) Parainfluenza 4 (PCR) RSV (PCR) Entero/Rhino (PCR) SARS-CoV-2 RNA (RT-PCR) 11/21/20 14:30 MCV MCH MCHC RDW Plt Count MPV Immature Gran % (Auto) Neut % (Auto) Lymph % (Auto) [place] % (Auto) Eos % (Auto) Baso % (Auto) Lymph # (Auto) [place] # (Auto) Eos # (Auto) Baso # (Auto) Abs Immat Gran (auto) Absolute Neuts (auto) Absolute Nucleated RBC Nucleated RBC % (auto) PT INR APTT Anion Gap Estim Creat Clear Calc Estimated GFR Random Glucose Lactic Acid Calcium Total Bilirubin AST ALT Alkaline Phosphatase Troponin I High Sens B-Natriuretic Peptide Total Protein Albumin Respiratory Panel [place]ales See Note Adenovirus (Rapid PCR) Not Detected B.pert (TEM-PCR) Not Detected B.parapertussis DNA PCR Not Detected C. pneumoniae DNA (PCR) Not Detected Coronavirus OC43 (PCR) Not Detected Coronavirus HKU1 (PCR) Not Detected Coronavirus 229E (PCR) Not Detected COVID-19 (SUN) COVID-19 Clin Com Coronavirus NL63 (PCR) Not Detected Human Metapneumovir PCR Not Detected Influenza A (RT-PCR) Not Detected Influenza B (RT-PCR) Not Detected M. pneumoniae (PCR) Not Detected Parainfluenza 1 (PCR) Not Detected Parainfluenza 2 (PCR) Not Detected Parainfluenza 3 (PCR) Not Detected Parainfluenza 4 (PCR) Not Detected RSV (PCR) Not Detected Entero/Rhino (PCR) Not Detected SARS-CoV-2 RNA (RT-PCR) Not Detected Imaging Radiologist's Impressions: Impressions Chest X-Ray 11/21/20 12:14 IMPRESSION: Increasing left lower lobe pleural-based consolidation slightly worse since 10/17/2020. Moderate opacification of the left lower lobe medial basal segment and lingular segments are noted. Chest CT 11/21/20 13:56 IMPRESSION: Large left lingular mass/consolidation highly suspicious for malignancy. There is heterogeneous with abnormal mediastinal lymph nodes. The findings have progressed since CT chest 10/17/2020. Recommend and a bronchoscopy or CT-guided biopsy. Likely bilateral renal cysts and bilateral renal calculi. Multiple hypodense liver lesions likely metastatic unless proven otherwise. Assessment and Plan (1) Lung mass: Status: Acute This is a 70-year-old female with history of COPD, CHF, hypertension, hyperlipidemia, recent admission to [facility] for pneumonia who pre sents to the emergency department with shortness of breath found to have lung mass Acute respiratory failure with hypoxia Lung mass concerning for malignancy with possible liver mets Possible postobstructive pneumonia -RPP negative, covid negative -pulmonary consult for possible bronchoscopy versus lung biopsy -[facility] -supplemental oxygen as needed -IV Zosyn -supportive care -hold asa for possible bx COPD No acute exacerbation -continue breathing treatments Thrombocytopenia -follow CBC Hypertension -continue carvedilol, losartan Hyperlipidemia Continue atorvastatin CHF No acute exacerbation -Continue home dose of furosemide, beta-agusto, Jose Maria inhibitor -monitor fluid status closely DVT prophylaxis-heparin Code status-full code Attending-Dr. Singh Quality Stroke Does the patient have a stroke diagnosis?: No VTE Prior VTE?: No VTE Risk Level:: Medical - moderate - high VTE Device Contraindication: N/A - Device Ordered VTE Drug Contraindication: N/A - Med Ordered
[2020-11-21 16:59] LABS: Troponin-I High Sensitivity 7.9 ng/L (<3.5-17.0)
--- NOTE | 2020-11-21 18:40 | PM.EVENT ---
Event Note Date of Service: 11/21/20 Event Note: Patient seen examined case discussed with APC Patient presented to [facility] with worsening shortness of breath of 1 week duration associated with cough productive of yellow phlegm, patient denies associated fever chills nausea vomiting diarrhea denies any orthopnea PND chest pain or palpitation On exam Appears to be in respiratory distress Lungs diminished breath sound bilaterally, no wheeze, no rhonchi no crackles Extremities no edema Neuro nonfocal Assessment and plan Acute hypoxic respiratory failure due to COPD/Large left lingular mass/consolidation highly suspicious for malignancy/possible postobstructive pneumonia Agree with current treatment plan, obtain pulmonary consultation for bronchoscopy No evidence of acute congestive heart failure Possible biopsy of liver lesion
[2020-11-21] MEDS: Piperacillin Sodium/Tazobactam 3.375 GM in 0.9 % Sodium Chloride 50 ML IV (19:14)
[2020-11-21] MEDS: Heparin Sodium,Porcine 5,000 UNIT/ML VIAL 5000 UNIT SUBCUT (19:15)
[2020-11-21] MEDS: carvediloL 6.25 MG TABLET PO (21:20)
[2020-11-22] VITALS (8 sets, daily range): BP systolic 95–127; BP diastolic 45–86; PULSE 88–105; RESP 18–20; TEMP 36.6–36.8; O2SAT 90–94
[2020-11-22] MEDS: Piperacillin Sodium/Tazobactam 3.375 GM in 0.9 % Sodium Chloride 50 ML IV ×4 (01:02→18:34)
[2020-11-22 06:02] LABS: Hematocrit 38.3 % (37-47); Hemoglobin 11.8 g/dl (12.0-16.0); Mean Corpuscular HGB Conc 30.8 g/dl (31.0-35.0); Mean Corpuscular Hemoglobin 29.6 pg (27.0-33.0); Mean Platelet Volume 9.6 fL (9.4-12.3); Platelet Count 130 X10*3/uL (160-400); Red Blood Count 3.99 X10*6/uL (4.20-5.50); Red Cell Distribution Width 13.7 % (11.0-16.0); White Blood Count 4.4 X10*3/uL (4.8-10.8)
[2020-11-22 06:31] LABS: Anion Gap 14 (12-20); Blood Urea Nitrogen 19 mg/dL (9-16); Calcium 8.5 mg/dL (8.4-10.2); Carbon Dioxide 36 mmol/L (22-29); Chloride 99 mmol/L (96-108); Creatinine Clr Calc Pharmacy 47.5; Estimated Glomerular Filt Rate > 60; Glucose Random 120 mg/dL (60-115); Potassium 4.2 mmol/L (3.3-5.1); Sodium 145 mmol/L (135-145)
[2020-11-22] MEDS: Albuterol/Iprat 2.5/0.5MG 3 ML AMPUL.NEB INHALE ×2 (07:33→16:27)
--- NOTE | 2020-11-22 10:08 | MHC.CM.PN ---
met with pt who explins mthat she lives with her and son ,they had no services prior to admission and she does not anticipate needing servceis when dcd pt has own transportaion home
[2020-11-22] MEDS: carvediloL 6.25 MG TABLET PO (10:13)
[2020-11-22] MEDS: Losartan Potassium 25 MG TABLET PO (10:14)
[2020-11-22] MEDS: Magnesium Oxide 400 MG TABLET PO (10:14)
[2020-11-22] MEDS: Furosemide 20 MG TABLET PO (10:14)
[2020-11-22] MEDS: Loratadine 10 MG TABLET PO (10:14)
[2020-11-22] MEDS: Heparin Sodium,Porcine 5,000 UNIT/ML VIAL 5000 UNIT SUBCUT ×2 (10:14→21:32)
[2020-11-22] MEDS: Fluticasone Propionate Nasal 16 GM SPRAY 1 SPRAY NOSTRIL-B (10:14)
[2020-11-22] MEDS: Atorvastatin Calcium 80 MG TABLET PO (10:14)
[2020-11-22] MEDS: 0.9 % Sodium Chloride Flush 3 ML SYRINGE IVFLUSH (10:15)
--- NOTE | 2020-11-22 10:58 | P.CDIC_ITS ---
CDI Concurrent Query Service Date: 11/22/20 Documentation Clarification: Please clarify if you are treating a proba ble/suspected/likely or confirmed: Acute hypoxic respiratory failure Acute on chronic hypoxic respiratory failure Other, please specify if known Chronic Respiratory failure with Hypoxia Provider Response: Other Other Diagnosis: Chronic Resp. Failure with hypoxia PLEASE DO NOT DELETE/MODIFY EXISTING CONTENT Additional information is needed in order to code to the highest accuracy and appropriate Severity of Illness (SOI). Please clarify the information noted below in your progress notes and discharge summary. Risk Factors/Clinical Indicators/Treatments COPD on home oxygen. Recently placed on Lasix for CHF and home oxygen. Tachypnea at 22 Tachycardic at 110 on 2 liters O2. Worsening shortness of breath, dyspnea. CDS: Maryann Mittal CCS, CDIS Contact Number: [phone] Please Review the information above and exercise your independent professional judgment in responding to the query. If you concur, pleas document in the PROGRESS NOTES and DISCHARGE SUMMARY. If you do not agree with the query, please document in the query above. THIS QUERY IS PART OF THE PERMANENT MEDICAL RECORD
--- NOTE | 2020-11-22 11:11 | HO.PM.IMPN ---
Subjective Subjective Date of Service: 11/22/20 Interval History: seen and examined this AM feels slight better, less pleuritic cp reports yllow sputum Review of Systems General - no fevers or chills Cardiovascular - no chest pain Respiratory - +productive cough Abdominal- no abdominal pain, nausea, vomiting, diarrhea Physical Exam Vital Signs: Vital Signs: Last Vital Signs Temp 97.9 F 11/22/20 07:37 Pulse 98 11/22/20 10:14 Resp 19 11/22/20 07:37 BP 124/60 11/22/20 10:14 Pulse Ox 94 11/22/20 07:37 Oxygen Flow Rate 2 11/21/20 11:34 Body Mass Index 23.2 Const: Other: General - no acute distress, appears comfortable Cardiovascular - regular rate and rhythm, S1-S2 Lungs - normal respiratory effort, clear to auscultation bilaterally, no wheezing Abdomen - soft, nontender, no rebound or guarding Extremities - no edema bilaterally Neuro - awake and alert, no focal deficits Objective Data Current Medications Generic Name Dose Route Start Last Admin Trade Name Eric PRN Reason Stop Dose Admin Acetaminophen 650 mg 11/21/20 18:30 Acetaminophen 325 Mg Tablet PO Q6H PRN Pain, Mild (Pain Scale 1-3) Albuterol/Ipratropium 3 ml 11/21/20 20:00 11/22/20 07:33 Albuterol/Iprat 2.5/0.5mg 3 Ml Ampul.Neb INHALE 3 ml RQ4H WHILE AWAKE CAROL Administration Atorvastatin Calcium 80 mg 11/22/20 09:00 11/22/20 10:14 Atorvastatin Calcium 80 Mg Tablet PO 80 mg DAILY CAROL Administration Carvedilol 6.25 mg 11/21/20 21:00 11/22/20 10:13 Carvedilol 6.25 Mg Tablet PO 6.25 mg BID CAROL Administration Protocol Docusate Sodium 100 mg 11/21/20 18:30 Docusate Sodium 100 Mg Capsule PO DAILY PRN Constipation Fluticasone Propionate 1 spray 11/22/20 09:00 11/22/20 10:14 Fluticasone Propionate Nasal 16 Gm [place] NOSTRIL-B 1 spray DAILY CAROL Administration Furosemide 20 mg 11/22/20 09:00 11/22/20 10:14 Furosemide 20 Mg Tablet PO 20 mg DAILY CAROL Administration Protocol Guaifenesin/Dextromethorphan 10 ml 11/21/20 18:30 Guaifenesin Dm 200/20/10 Ml 10 Ml Syrup PO Q6H PRN Cough Heparin Sodium (Porcine) 5,000 unit 11/21/20 20:00 11/22/20 10:14 Heparin Sodium,Porcine 5,000 Unit/Ml Vial SUBCUT 5,000 unit Q12H CAROL Administration Piperacillin Sod/Tazobactam 50 mls @ 100 mls/hr 11/21/20 19:00 11/22/20 10:17 Sod 3.375 gm/ Sodium Chloride IV Infused Q6H CAROL Infusion Loratadine 10 mg 11/22/20 09:00 11/22/20 10:14 Loratadine 10 Mg Tablet PO 10 mg DAILY CAROL Administration Losartan Potassium 25 mg 11/22/20 09:00 11/22/20 10:14 Losartan Potassium 25 Mg Tablet PO 25 mg DAILY CAROL Administration Protocol Magnesium Oxide 400 mg 11/22/20 09:00 11/22/20 10:14 Magnesium Oxide 400 Mg Tablet PO 400 mg DAILY CAROL Administration Ondansetron HCl 4 mg 11/21/20 18:30 Ondansetron Hcl 4 Mg/2 Ml Vial IVPUSH Q8H PRN Nausea and Vomiting Sodium Chloride 3 ml 11/22/20 00:00 11/22/20 10:15 0.9 % Sodium Chloride Flush 3 Ml Syringe IVFLUSH 3 ml QSHIFT CAROL Administration Labs CBC & Chem 7: 11/22/20 05:25 11/22/20 05:25 Labs: Laboratory Results - last 24 hr 11/21/20 11/21/20 11/21/20 12:35 12:35 12:36 MCV 95.3 MCH 30.1 MCHC 31.6 RDW 13.8 Plt Count 151 L MPV 9.7 Immature Gran % (Auto) 0.1 Neut % (Auto) 62.6 Lymph % (Auto) 15.0 L [place] % (Auto) 9.9 Eos % (Auto) 11.9 H Baso % (Auto) 0.5 Lymph # (Auto) 1.3 [place] # (Auto) 0.8 Eos # (Auto) 1.0 H Baso # (Auto) 0.0 Abs Immat Gran (auto) 0.01 Absolute Neuts (auto) 5.2 Absolute Nucleated RBC 0.000 Nucleated RBC % (auto) 0.0 PT 11.9 INR 1.0 APTT 30.9 Anion Gap Estim Creat Clear Calc Estimated GFR Random Glucose Lactic Acid 1.1 Calcium Total Bilirubin AST ALT Alkaline Phosphatase Troponin I High Sens B-Natriuretic Peptide Total Protein Albumin Respiratory Panel [place]ales Adenovirus (Rapid PCR) B.pert (TEM-PCR) B.parapertussis DNA PCR C. pneumoniae DNA (PCR) Coronavirus OC43 (PCR) Coronavirus HKU1 (PCR) Coronavirus 229E (PCR) COVID-19 (SUN) COVID-19 Clin Com Coronavirus NL63 (PCR) Human Metapneumovir PCR Influenza A (RT-PCR) Influenza B (RT-PCR) M. pneumoniae (PCR) Parainfluenza 1 (PCR) Parainfluenza 2 (PCR) Parainfluenza 3 (PCR) Parainfluenza 4 (PCR) RSV (PCR) Entero/Rhino (PCR) SARS-CoV-2 RNA (RT-PCR) 11/21/20 11/21/20 11/21/20 12:36 12:36 12:36 MCV MCH MCHC RDW Plt Count MPV Immature Gran % (Auto) Neut % (Auto) Lymph % (Auto) [place] % (Auto) Eos % (Auto) Baso % (Auto) Lymph # (Auto) [place] # (Auto) Eos # (Auto) Baso # (Auto) Abs Immat Gran (auto) Absolute Neuts (auto) Absolute Nucleated RBC Nucleated RBC % (auto) PT INR APTT Anion Gap 13 Estim Creat Clear Calc 48.1 Estimated GFR > 60 Random Glucose 121 H Lactic Acid Calcium 9.1 Total Bilirubin 0.3 AST 24 ALT 15 Alkaline Phosphatase 62 Troponin I High Sens 11.3 D B-Natriuretic Peptide 333 H Total Protein 6.5 Albumin 3.5 Respiratory Panel Canales Adenovirus (Rapid PCR) B.pert (TEM-PCR) B.parapertussis DNA PCR C. pneumoniae DNA (PCR) Coronavirus OC43 (PCR) Coronavirus HKU1 (PCR) Coronavirus 229E (PCR) COVID-19 (SUN) Negative COVID-19 Clin Com See Note Coronavirus NL63 (PCR) Human Metapneumovir PCR Influenza A (RT-PCR) Influenza B (RT-PCR) M. pneumoniae (PCR) Parainfluenza 1 (PCR) Parainfluenza 2 (PCR) Parainfluenza 3 (PCR) Parainfluenza 4 (PCR) RSV (PCR) Entero/Rhino (PCR) SARS-CoV-2 RNA (RT-PCR) 11/21/20 11/21/20 11/22/20 14:30 16:26 05:25 MCV 96.0 MCH 29.6 MCHC 30.8 L RDW 13.7 Plt Count 130 L MPV 9.6 Immature Gran % (Auto) Neut % (Auto) Lymph % (Auto) [place] % (Auto) Eos % (Auto) Baso % (Auto) Lymph # (Auto) [place] # (Auto) Eos # (Auto) Baso # (Auto) Abs Immat Gran (auto) Absolute Neuts (auto) Absolute Nucleated RBC 0.000 Nucleated RBC % (auto) 0.0 PT INR APTT Anion Gap Estim Creat Clear Calc Estimated GFR Random Glucose Lactic Acid Calcium Total Bilirubin AST ALT Alkaline Phosphatase Troponin I High Sens 7.9 B-Natriuretic Peptide Total Protein Albumin Respiratory Panel [place] See Note Adenovirus (Rapid PCR) Not Detected B.pert (TEM-PCR) Not Detected B.parapertussis DNA PCR Not Detected C. pneumoniae DNA (PCR) Not Detected Coronavirus OC43 (PCR) Not Detected Coronavirus HKU1 (PCR) Not Detected Coronavirus 229E (PCR) Not Detected COVID-19 (SUN) COVID-19 Clin Com Coronavirus NL63 (PCR) Not Detected Human Metapneumovir PCR Not Detected Influenza A (RT-PCR) Not Detected Influenza B (RT-PCR) Not Detected M. pneumoniae (PCR) Not Detected Parainfluenza 1 (PCR) Not Detected Parainfluenza 2 (PCR) Not Detected Parainfluenza 3 (PCR) Not Detected Parainfluenza 4 (PCR) Not Detected RSV (PCR) Not Detected Entero/Rhino (PCR) Not Detected SARS-CoV-2 RNA (RT-PCR) Not Detected 11/22/20 05:25 MCV MCH MCHC RDW Plt Count MPV Immature Gran % (Auto) Neut % (Auto) Lymph % (Auto) [place] % (Auto) Eos % (Auto) Baso % (Auto) Lymph # (Auto) [place] # (Auto) Eos # (Auto) Baso # (Auto) Abs Immat Gran (auto) Absolute Neuts (auto) Absolute Nucleated RBC Nucleated RBC % (auto) PT INR APTT Anion Gap 14 Estim Creat Clear Calc 47.5 Estimated GFR > 60 Random Glucose 120 H Lactic Acid Calcium 8.5 D Total Bilirubin AST ALT Alkaline Phosphatase Troponin I High Sens B-Natriuretic Peptide Total Protein Albumin Respiratory Panel [place] Adenovirus (Rapid PCR) B.pert (TEM-PCR) B.parapertussis DNA PCR C. pneumoniae DNA (PCR) Coronavirus OC43 (PCR) Coronavirus HKU1 (PCR) Coronavirus 229E (PCR) COVID-19 (SUN) COVID-19 Clin Com Coronavirus NL63 (PCR) Human Metapneumovir PCR Influenza A (RT-PCR) Influenza B (RT-PCR) M. pneumoniae (PCR) Parainfluenza 1 (PCR) Parainfluenza 2 (PCR) Parainfluenza 3 (PCR) Parainfluenza 4 (PCR) RSV (PCR) Entero/Rhino (PCR) SARS-CoV-2 RNA (RT-PCR) Assessment and Plan (1) Pneumonia: Status: Acute Assessment and Plan: This is a 70 yo F CAD - s/p GA last month, CHF, COPD, HTN who presented to the hospital with shortness of breath. Her CT scan is concerning for lung Ca and probable post-obstructive pneumonia. She is admitted for further work up. 1. Pneumonia, likely post-obstructive IV zosyn f/u cultures 2. Lung mass likely cancerous pulmonary consulted 3. Chronic Resp. Failure reports she has been on O2 at home (2L) continue the same 4. Thrombocytopenia mild, monitor 5. CHF not in exacerbation continue baseline meds 6. HLD statin Full Code DVT pptx, subcut. heparin Quality Stroke Does the patient have a stroke diagnosis?: No VTE Prior VTE?: No VTE Risk Level:: Medical - moderate - high VTE Device Contraindication: N/A - Device Ordered VTE Drug Contraindication: N/A - Med Ordered
[2020-11-22 12:32] LABS: Glucose Urine UA NEG (NEG); Leukocyte Esterase Urine 1+ (NEG); Nitrite Urine NEG (NEG); PH 5.5 (5.0-8.0); Specific Gravity - Urine >= 1.030 (1.005-1.025); Urine Blood NEG (NEG); Urine Ketones NEG (NEG); Urine Protein NEG (NEG-TRACE)
[2020-11-22 12:33] LABS: Appearance Urine CLEAR; Color Urine YELLOW
[2020-11-22 12:44] LABS: Bacteria Urine TRACE /LPF; RBC Urine 0 /HPF (0); Squamous Epithelial Cell Urine 1+ /LPF; Uric Acid Crystals Urine 2+ /LPF
--- NOTE | 2020-11-22 14:55 | PM.CNPUL ---
History of Present Illness History of Present Illness Consult date: 11/22/20 Chief complaint: shortness of breath Narrative: This is a 70-year-old female who presents to the hospital with complaints of shortness of breath.? She was seen in the ED on October 17 and diagnosed with pneumonia and NSTEMI.? She was transferred to [facility] and treated for 3 days.? She is unsure what she was treated for other than pneumonia.? She was discharged home with antibiotics and was feeling better until about 1 week ago.? Since that time she has been having increasing shortness of breath even with minimal exertion.? She denies any chest pain.? She has had a cough productive of yellow phlegm.? She denies associated fever or chills.? She denies any recent sick contacts.? In the emergency department her oxygen saturation was 87% on room air.? 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 She denies any recent weight loss.? She reports a known history of COPD for which she uses ProAir.? Given her hypoxia and respiratory symptoms the decision was made to admit her for further management. Review of Systems Constitutional: Constitutional: Denies body ache(s), Denies chills, Reports fatigue, Denies fever(s), Denies headache(s), Reports malaise and Denies weakness Eyes: Eyes: Denies change in vision and Denies diplopia ENT: Denies vertigo, Denies dizziness, Denies otalgia, Denies headache(s), Denies mouth pain, Reports nasal discharge, Reports neck pain, Denies sinus pain and Denies sore throat Cardiovascular: Cardiovascular: Reports chest pain, Reports chest pain at rest, Denies Epigastric Pain, Denies syncope, Reports pedal edema, Denies leg edema, Denies lightheadedness, Denies Loss of Consciousness, Denies palpitations and Reports dyspnea Respiratory: Respiratory: Reports chest congestion, Reports cough, Denies hemoptysis, Denies pain on inspiration and Reports dyspnea Gastrointestinal: Gastrointestinal: Denies abdominal pain, Denies hematochezia, Denies constipation, Denies diarrhea, Denies nausea and Denies vomiting Genitourinary: Genitourinary: Reports no additional female genitourinary complaints Musculoskeletal: Musculoskeletal: Reports back pain and Reports neck pain Integumentary/Breasts: Comments: right foot swelling Neurologic: Denies confusion, Denies vertigo, Denies dizziness, Denies syncope, Denies headache(s), Denies focal weakness, Denies Sensory deficit (Neuro) and Denies weakness Psychiatric: Psychiatric: Denies anxiety, Denies confusion and Denies depression Endocrine: Endocrine: Reports fatigue and Denies palpitations Hematologic/Lymphatic: Hematologic/Lymphatic: Denies easy bleeding PMFSH Past Medical History Medical History (Updated 11/22/20 @ 14:57 by Junaid Stoddard MD) CAD (coronary artery disease) CHF (congestive heart failure) COPD (chronic obstructive pulmonary disease) High cholesterol HTN (hypertension) Functional capacity: independent ambulation Social History Social History Household Members: Spouse Household Members Other:: and son Housing: House Do you presently have visiting nurse or other home services: No Patient Tobacco Use Status: Former Tobacco user Use of substances other than those prescribed or required for medical reasons: No Currently Displaying Signs/Symptoms of Drug Intoxication Withdrawal: No Have you been hit, kicked, punched, or otherwise hurt by someone within the past year? If so, by whom?: No Do you feel safe in your current relationship?: Yes Is there a partner from a previous relationship who is making you feel unsafe now?: No Are you made to feel afraid or neglected: No Advance Directives: Yes Advance Directives Information Provided: Yes Advance Directives on File: No Advance Directives Date on File: 11/22/20 Do you have thoughts of harming others: None Do you have a plan to hurt others: No Plan Recently lost weight without trying: Yes How much weight loss: Unsure Eating poorly because of decreased appetite: Yes Nutrition screen score: 5 Nutrition Risks: Poor intake 0-25% >4 days Patient : No : No Poor oral hygiene: No service: No Meds Allergies Allergy/AdvReac Type Severity Reaction Status Date / Time lisinopril AdvReac Cough Verified 11/21/20 11:34 Active Medications: Current Medications Generic Name Dose Route Start Last Admin Trade Name Freq PRN Reason Stop Dose Admin Acetaminophen 650 mg 11/21/20 18:30 Acetaminophen 325 Mg Tablet PO Q6H PRN Pain, Mild (Pain Scale 1-3) Albuterol/Ipratropium 3 ml 11/21/20 20:00 11/22/20 12:00 Albuterol/Iprat 2.5/0.5mg 3 Ml Ampul.Neb INHALE Not Given RQ4H WHILE AWAKE CAROL Atorvastatin Calcium 80 mg 11/22/20 09:00 11/22/20 10:14 Atorvastatin Calcium 80 Mg Tablet PO 80 mg DAILY CAROL Administration Carvedilol 6.25 mg 11/21/20 21:00 11/22/20 10:13 Carvedilol 6.25 Mg Tablet PO 6.25 mg BID CAROL Administration Protocol Docusate Sodium 100 mg 11/21/20 18:30 Docusate Sodium 100 Mg Capsule PO DAILY PRN Constipation Fluticasone Propionate 1 spray 11/22/20 09:00 11/22/20 10:14 Fluticasone Propionate Nasal 16 Gm [place] NOSTRIL-B 1 spray DAILY CAROL Administration Furosemide 20 mg 11/22/20 09:00 11/22/20 10:14 Furosemide 20 Mg Tablet PO 20 mg DAILY [facility] Administration Protocol Guaifenesin/Dextromethorphan 10 ml 11/21/20 18:30 Guaifenesin Dm 200/20/10 Ml 10 Ml Syrup PO Q6H PRN Cough Heparin Sodium (Porcine) 5,000 unit 11/21/20 20:00 11/22/20 10:14 Heparin Sodium,Porcine 5,000 Unit/Ml Vial SUBCUT 5,000 unit Q12H CAROL Administration Piperacillin Sod/Tazobactam 50 mls @ 100 mls/hr 11/21/20 19:00 11/22/20 14:06 Sod 3.375 gm/ Sodium Chloride IV Infused Q6H CAROL Infusion Loratadine 10 mg 11/22/20 09:00 11/22/20 10:14 Loratadine 10 Mg Tablet PO 10 mg DAILY CAROL Administration Losartan Potassium 25 mg 11/22/20 09:00 11/22/20 10:14 Losartan Potassium 25 Mg Tablet PO 25 mg DAILY CAROL Administration Protocol Magnesium Oxide 400 mg 11/22/20 09:00 11/22/20 10:14 Magnesium Oxide 400 Mg Tablet PO 400 mg DAILY CAROL Administration Ondansetron HCl 4 mg 11/21/20 18:30 Ondansetron Hcl 4 Mg/2 Ml Vial IVPUSH Q8H PRN Nausea and Vomiting Sodium Chloride 3 ml 11/22/20 00:00 11/22/20 10:15 0.9 % Sodium Chloride Flush 3 Ml Syringe [facility] Home Medications Medication Instructions Recorded Confirmed Last Taken Type Caltrate 600 plus D 1 tab PO DAILY 11/21/20 11/21/20 Unknown History aspirin 81 mg tablet 81 mg PO DAILY 11/21/20 11/21/20 Unknown History atorvastatin 80 mg tablet 80 mg PO DAILY 11/21/20 11/21/20 Unknown History carvedilol 6.25 mg tablet 6.25 mg PO BID 11/21/20 11/21/20 Unknown History fluticasone propionate 50 1 spray INTRANASAL DAILY 11/21/20 11/21/20 Unknown History mcg/actuation nasal spray,suspension furosemide 20 mg tablet 20 mg PO DAILY 11/21/20 11/21/20 Unknown History loratadine 10 mg tablet (Claritin) 10 mg PO DAILY 11/21/20 11/21/20 Unknown History losartan 25 mg tablet 25 mg PO DAILY 11/21/20 11/21/20 Unknown History magnesium 1 tab PO DAILY 11/21/20 11/21/20 Unknown History Physical Exam Vital Signs: Vital Signs: Last Vital Signs Temp 98.1 F 11/22/20 12:00 Pulse 98 11/22/20 12:00 Resp 18 11/22/20 12:00 BP 127/58 L 11/22/20 12:00 Pulse Ox 91 L 11/22/20 12:00 Oxygen Flow Rate 2 11/21/20 11:34 Body Mass Index 23.2 Const: General: No confusion Orientation/consciousness: No confusion Eyes: Pupils: Equal, round and reactive pupils present Neck: Neck: Yes normal visual inspection, Yes full ROM and Yes no lymphadenopathy Chest: Chest palpation & inspection: normal inspection of the chest Resp: Auscultation: diminished lung sounds Cardio: Rate: regular rate Rhythm: regular rhythm Heart sounds: S1 normal heart sound present and S2 normal heart sound present GI: Palpation (GI): Soft to palpation and nontender Auscultation: normal bowel sounds Skin: General skin exam: rashes and/or lesions noted Neuro: General: No confusion Cranial nerves: Yes Equal, round and reactive pupils present Sensory Exam: No Sensory deficit (Neuro) Results Laboratory Findings CBC and BMP: 11/22/20 05:25 11/22/20 05:25 ABG, PT/INR, D-dimer: PT/INR, D-dimer PT 11.9 SEC (9.9-13.0) 11/21/20 12:35 INR 1.0 (0.9-1.1) 11/21/20 12:35 Abnormal lab findings: Abnormal Labs 11/21/20 11/21/20 11/21/20 12:36 12:36 12:36 WBC RBC Hgb MCHC Plt Count 151 L Lymph % (Auto) 15.0 L Eos % (Auto) 11.9 H Eos # (Auto) 1.0 H Carbon Dioxide 38 H BUN Random Glucose 121 H B-Natriuretic Peptide 333 H Ur Specific [place] Ur Leukocyte Esterase Urine WBC 11/22/20 11/22/20 11/22/20 05:25 05:25 11:48 WBC 4.4 L RBC 3.99 L Hgb 11.8 L MCHC 30.8 L Plt Count 130 L Lymph % (Auto) Eos % (Auto) Eos # (Auto) Carbon Dioxide 36 H BUN 19 H Random Glucose 120 H B-Natriuretic Peptide Ur Specific [place] >= 1.030 H Ur Leukocyte Esterase 1+ H Urine WBC 5-9 H Microbiology: Microbiology 11/21/20 12:35 Blood - Venous Blood Culture - Preliminary No growth after 24 hours. 11/21/20 12:35 Blood - Venous Blood Culture - Preliminary No growth after 24 hours. Assessment and Plan (1) Pneumonia: Qualifiers: Laterality: left Lung location: lower lobe of lung Pneumonia type: due to unspecified organism Qualified Code(s): J18.9 - Pneumonia, unspecified organism Status: Acute (2) Lung mass: Status: Acute (3) CAD (coronary artery disease): Status: Acute The patient is concerning finding suspicious for the postobstructive pneumonia due to likely a mass obstructing the airway. She will benefit from a bronchoscopy to further address this issue specially with the risk of recurrent airspace disease. However, the patient recently had elevated cardiac enzymes and she was transferred to [facility] for a cardiac evaluation. Therefore, the patient will need a cardiac evaluation prior to any diagnostic interventions. rec: Cardiology eval Would benefit from Bronchosopcy Continue Abx therapy Procedures Date of Service Date of Service: 11/22/20
[2020-11-23] VITALS (14 sets, daily range): BP systolic 92–118; BP diastolic 46–58; PULSE 80–98; RESP 16–18; TEMP 35.7–36.9; O2SAT 91–95
[2020-11-23] MEDS: Piperacillin Sodium/Tazobactam 3.375 GM in 0.9 % Sodium Chloride 50 ML IV ×5 (00:22→23:58)
[2020-11-23] MEDS: 0.9 % Sodium Chloride Flush 3 ML SYRINGE IVFLUSH ×4 (01:21→23:59)
[2020-11-23] MEDS: Albuterol/Iprat 2.5/0.5MG 3 ML AMPUL.NEB INHALE ×4 (07:27→19:21)
--- NOTE | 2020-11-23 07:38 | PC.NURSE ---
spoke with Dr. Ponce regarding pt 95/45 bp asymptomatic - held coreg as ordered. SR/pvc & ST depression on monitor.
[2020-11-23] MEDS: Heparin Sodium,Porcine 5,000 UNIT/ML VIAL 5000 UNIT SUBCUT ×2 (07:53→19:59)
[2020-11-23] MEDS: Losartan Potassium 25 MG TABLET PO (07:53)
[2020-11-23] MEDS: Atorvastatin Calcium 80 MG TABLET PO (07:54)
[2020-11-23] MEDS: Furosemide 20 MG TABLET PO (07:54)
[2020-11-23] MEDS: Magnesium Oxide 400 MG TABLET PO (07:54)
[2020-11-23] MEDS: Loratadine 10 MG TABLET PO (07:54)
[2020-11-23] MEDS: carvediloL 6.25 MG TABLET PO (07:56)
[2020-11-23 08:32] LABS: Hemoglobin 12.3 g/dl (12.0-16.0); Mean Corpuscular HGB Conc 31.5 g/dl (31.0-35.0); Mean Corpuscular Hemoglobin 30.4 pg (27.0-33.0); Mean Corpuscular Volume 96.3 fL (80-98); Mean Platelet Volume 9.2 fL (9.4-12.3); Platelet Count 138 X10*3/uL (160-400); Red Blood Count 4.05 X10*6/uL (4.20-5.50); Red Cell Distribution Width 14.1 % (11.0-16.0); White Blood Count 6.9 X10*3/uL (4.8-10.8)
--- NOTE | 2020-11-23 08:54 | P.CDIC_ITS ---
CDI Concurrent Query Service Date: 11/23/20 Documentation Clarification: Please clarify if you are treating a proba ble/suspected/likely or confirmed: Chronic diastolic and/or systolic Congestive heart failure Acute on chronic diastolic and/or systolic Congestive heart failure Other, please specify if known or undetermined Unspecified, will clarify after echo completed Provider Response: Other Other Diagnosis: Unspecified, will clarify after echo completed PLEASE DO NOT DELETE/MODIFY EXISTING CONTENT Additional information is needed in order to code to the highest accuracy and appropriate Severity of Illness (SOI). Please clarify the information noted below in your progress notes and discharge summary. Risk Factors/Clinical Indicators/Treatments CHF, recently started on Lasix BNP 333 H Home med: Furosemide 20mg PO Daily PN: 11/22 - CHF, no acute exacerbation CDS: Maryann Mittal CCS, CDIS Contact Number: [phone] Please Review the information above and exercise your independent professional judgment in responding to the query. If you concur, pleas document in the PROGRESS NOTES and DISCHARGE SUMMARY. If you do not agree with the query, please document in the query above. THIS QUERY IS PART OF THE PERMANENT MEDICAL RECORD
[2020-11-23 09:01] LABS: Anion Gap 10 (12-20); Blood Urea Nitrogen 16 mg/dL (9-16); Carbon Dioxide 41 mmol/L (22-29); Chloride 98 mmol/L (96-108); Creatinine Clr Calc Pharmacy 50.1; Estimated Glomerular Filt Rate > 60; Glucose Random 94 mg/dL (60-115); Potassium 4.4 mmol/L (3.3-5.1); Sodium 145 mmol/L (135-145)
--- NOTE | 2020-11-23 09:08 | CA_ITS ---
Transthoracic Echocardiogram Patient (Last, First, Middle): Bere Kellogg, Gender: Female Date of : 1950 Age: 70 Procedure Date: 11/23/2020 Procedure Type: Transthoracic Echocardiogram Location: [facility] [place] Height: 149.86 cm Weight: 52.16 kg BSA: 1.46 m2 Heart Rate: bpm BP: 118 / 58 mmHg Senior Chemical Engineer: Referring MD: Matt Love MD Symptoms: Preop evaluation Study Quality: Fair ECG Rhythm: Sinus Conclusions: - The left ventricular systolic function is mildly decreased. The calculated ejection fraction is 43% by biplane method. - The basal inferior and mid inferior segments are akinetic. - There is mild to moderately decreased right ventricular systolic function. - There is mild calcification of the aortic valve. - There is mild mitral annular calcification. Findings Left Ventricle Normal left ventricular cavity size. There is mildly increased left ventricular wall thickness. The left ventricular systolic function is mildly decreased. The calculated ejection fraction is 43% by biplane method. There is evidence of regional wall motion abnormalities. E/E prime ratio is >15, consistent with elevated filling pressures. Evidence suggests grade I (mild) diastolic dysfunction. Wall Motion Rest Echo Findings The basal inferior and mid inferior segments are akinetic. Right Ventricle Normal right ventricular cavity size. There is mild to moderately decreased right ventricular systolic function. TAPSE 1.2cm. Atria Both atria are normal in size. Aortic Valve There is mild calcification of the aortic valve. There is no aortic valve stenosis. There is no aortic valve regurgitation. Mitral Valve The posterior mitral leaflet has restricted mobility. There is mild mitral annular calcification. There is trace mitral valve regurgitation. There is no mitral valve stenosis. Pulmonic Valve The pulmonic valve was not well visualized. Tricuspid Valve Normal tricuspid valve structure. There is trace tricuspid valve regurgitation. The pulmonary artery systolic pressure is normal. Great Vessels The aortic annulus, sinuses of valsalva, asc aorta, and aortic arch are normal in size. Venous The inferior vena cava is normal in size and collapses greater than 50% with inspiration. Pericardium/Pleural There is no evidence of pericardial effusion. Prior Study Comparison No prior study available for comparison. Measurements 2D Linear Measurements RVIDd: 2.95 RVIDd Index: 2.02 IVSd: 1.17 0.6-0.9/0.6-1.0 cm LVIDd: 4.30 3.9-5.3/4.2-5.9 cm LVIDd Index: 2.95 2.4-3.2/2.2-3.1 cm/m2 LVIDs: 3.42 2.0-3.6 cm LVPWd: 1.43 0.7-1.1 cm Ao Root: 2.70 2.1-3.5 cm LA Diam: 3.60 2.7-3.8/3.0-4.0 cm LAIDs Index: 2.47 1.5-2.3 cm/m2 LV Mass: 258.96 67-162/88-224 g LV Mass Index: 177.37 43-95/49-115 g/m2 LVOT Diam: 2.00 3.0+(-)1.3 cm 2D Systolic Function EF 4C: 44.40 >55% EF 2C: 46.30 >55% EF BiP: 43.40 >55% Mitral Valve MV Pk E: 0.80 MV PK A: 1.14 MV Decel Time: 225.00 E/A: 0.70 E'Lateral: 5.98 E'Medial: 3.92 E/E' Med: 20.30 E/E' Lat: 13.30 Aortic Valve AoV Pk Ronnell: 1.31 AoV Mn Ronnell: 0.98 AoV VTI: 0.26 AoV Pk Grad: 7.00 Aov Mn Grad: 4.00 CHEPE Cont.VTI: 2.62 LVOT LVOT Pk Ronnell: 1.04 LVOT Mn Ronnell: 0.64 LVOT VTI: 0.22 LVOT Pk Grad: 4.00 LVOT Mn Grad: 2.00 LVOT Diam: 2.00 LVOT Area: 3.14 Diastolic Function MV Pk E: 0.80 MV Pk A: 1.14 E/A: 0.70 E'Medial: 3.92 E/E' Med: 20.30 E' Laterial: 5.98 E/E' Lat: 13.30 Right Ventricle TAPSE (mm): 12.00 TVS' Ronnell: 11.00 Tricuspid Valve RA Press: 3.00 Great Vessels Aorta Ao Root-2D: 2.70 2.0-3.7 cm Ao Asc: 2.90 2.1-3.4 cm Ao Arch: 2.20 Updated in Other Vendor System with Status of Final Matt Love MD electronically signed on 11/23/2020 4:29:38 PM with status of Final
--- NOTE | 2020-11-23 10:14 | PM.CNCAR ---
History of Present Illness History of Present Illness Date of Service: 11/23/20 Consult reason: pre-op evaluation Chief complaint: shortness of breath Narrative: This is a cardiology consultation regarding preoperative risk stratification for bronchoscopy. Patient states that she generally sees Dr. Ford from [facility]. It seems that she underwent cardiac catheterization a few months ago and based on description, through right radial approach. She believes she had some coronary disease but was not stented. We will try to obtain the actual reports. Otherwise, there is a concern for post obstructive pneumonia from a mass and hence she needs a bronchoscopy. We have been asked to see her for that regard. Patient denies any clear anginal-type symptoms but she has a discomfort in the lower part of sternum and epigastrium as if there is gas in that area. No clear exertional angina. She does get short of breath with activity. She does not believe she ever had documented myocardial infarction but was apparently told that she had a silent heart attack. Chronic smoker and last was about month or so ago. Review of Systems Review of Systems: Yes all other systems are reviewed and are negative Cardiovascular: Cardiovascular: Reports as per HPI, Reports no additional cardiovascular complaints, Denies acrocyanosis, Denies cool extremities, Denies painful fingertips, Denies chest pain, Denies chest pain at rest, Denies diaphoresis, Denies syncope, Denies irregular heart rhythm, Denies claudication, Denies leg edema, Denies lightheadedness, Denies palpitations and Reports dyspnea Respiratory: Respiratory: Reports dyspnea Neurologic: Denies syncope Endocrine: Endocrine: Denies palpitations [facility] Past Medical History Medical History (Updated 11/23/20 @ 10:21 by Matt Love MD) CAD (coronary artery disease) CHF (congestive heart failure) COPD (chronic obstructive pulmonary disease) High cholesterol HTN (hypertension) Functional capacity: independent ambulation Family History Pertinent family history: Patient denies any significant cardiac issues in family. Social History Social History Household Members: Spouse Household Members Other:: and son Housing: House Do you presently have visiting nurse or other home services: No Patient Tobacco Use Status: Former Tobacco user Use of substances other than those prescribed or required for medical reasons: No Currently Displaying Signs/Symptoms of Drug Intoxication Withdrawal: No Have you been hit, kicked, punched, or otherwise hurt by someone within the past year? If so, by whom?: No Do you feel safe in your current relationship?: Yes Is there a partner from a previous relationship who is making you feel unsafe now?: No Are you made to feel afraid or neglected: No Advance Directives: Yes Advance Directives Information Provided: Yes Advance Directives on File: No Advance Directives Date on File: 11/22/20 Do you have thoughts of harming others: None Do you have a plan to hurt others: No Plan Recently lost weight without trying: Yes How much weight loss: Unsure Eating poorly because of decreased appetite: Yes Nutrition screen score: 5 Nutrition Risks: Poor intake 0-25% >4 days Patient : No : No Poor oral hygiene: No service: No Meds Allergies Allergy/AdvReac Type Severity Reaction Status Date / Time lisinopril AdvReac Cough Verified 11/21/20 11:34 Active Medications: Current Medications Generic Name Dose Route Start Last Admin Trade Name Freq PRN Reason Stop Dose Admin Acetaminophen 650 mg 11/21/20 18:30 Acetaminophen 325 Mg Tablet PO Q6H PRN Pain, Mild (Pain Scale 1-3) Albuterol/Ipratropium 3 ml 11/21/20 20:00 11/23/20 07:27 Albuterol/Iprat 2.5/0.5mg 3 Ml Ampul.Neb INHALE 3 ml RQ4H WHILE AWAKE CAROL Administration Atorvastatin Calcium 80 mg 11/22/20 09:00 11/23/20 07:54 Atorvastatin Calcium 80 Mg Tablet PO 80 mg DAILY CAROL Administration Carvedilol 6.25 mg 11/21/20 21:00 11/23/20 07:56 Carvedilol 6.25 Mg Tablet PO 6.25 mg BID CAROL Administration Protocol Docusate Sodium 100 mg 11/21/20 18:30 Docusate Sodium 100 Mg Capsule PO DAILY PRN Constipation Fluticasone Propionate 1 spray 11/22/20 09:00 11/22/20 10:14 Fluticasone Propionate Nasal 16 Gm [place] NOSTRIL-B 1 spray DAILY CAROL Administration Furosemide 20 mg 11/22/20 09:00 11/23/20 07:54 Furosemide 20 Mg Tablet PO 20 mg DAILY CAROL Administration Protocol Guaifenesin/Dextromethorphan 10 ml 11/21/20 18:30 Guaifenesin Dm 200/20/10 Ml 10 Ml Syrup PO Q6H PRN Cough Heparin Sodium (Porcine) 5,000 unit 11/21/20 20:00 11/23/20 07:53 Heparin Sodium,Porcine 5,000 Unit/Ml Vial SUBCUT 5,000 unit Q12H CAROL Administration Piperacillin Sod/Tazobactam 50 mls @ 100 mls/hr 11/21/20 19:00 11/23/20 06:25 Sod 3.375 gm/ Sodium Chloride IV Infused Q6H CAROL Infusion Loratadine 10 mg 11/22/20 09:00 11/23/20 07:54 Loratadine 10 Mg Tablet PO 10 mg DAILY CAROL Administration Losartan Potassium 25 mg 11/22/20 09:00 11/23/20 07:53 Losartan Potassium 25 Mg Tablet PO 25 mg DAILY CAROL Administration Protocol Magnesium Oxide 400 mg 11/22/20 09:00 11/23/20 07:54 Magnesium Oxide 400 Mg Tablet PO 400 mg DAILY CAROL Administration Ondansetron HCl 4 mg 11/21/20 18:30 Ondansetron Hcl 4 Mg/2 Ml Vial IVPUSH Q8H PRN Nausea and Vomiting Sodium Chloride 3 ml 11/22/20 00:00 11/23/20 07:57 0.9 % Sodium Chloride Flush 3 Ml Syringe IVFLUSH 3 ml QSHIFT CAROL Administration Home Medications Medication Instructions Recorded Confirmed Last Taken Type Caltrate 600 plus D 1 tab PO DAILY 11/21/20 11/21/20 Unknown History aspirin 81 mg tablet 81 mg PO DAILY 11/21/20 11/21/20 Unknown History atorvastatin 80 mg tablet 80 mg PO DAILY 11/21/20 11/21/20 Unknown History carvedilol 6.25 mg tablet 6.25 mg PO BID 11/21/20 11/21/20 Unknown History fluticasone propionate 50 1 spray INTRANASAL DAILY 11/21/20 11/21/20 Unknown History mcg/actuation nasal spray,suspension furosemide 20 mg tablet 20 mg PO DAILY 11/21/20 11/21/20 Unknown History loratadine 10 mg tablet (Claritin) 10 mg PO DAILY 11/21/20 11/21/20 Unknown History losartan 25 mg tablet 25 mg PO DAILY 11/21/20 11/21/20 Unknown History magnesium 1 tab PO DAILY 11/21/20 11/21/20 Unknown History Physical Exam Vital Signs: Vital Signs: Last Vital Signs Temp 96.9 F 11/23/20 07:40 Pulse 96 11/23/20 07:56 Resp 17 11/23/20 07:40 BP 118/58 L 11/23/20 07:56 Pulse Ox 91 L 11/23/20 07:40 Oxygen Flow Rate 2 11/21/20 11:34 Body Mass Index 23.2 Const: General: cooperative and no acute distress HENMT: Other: Unremarkable Neck: Neck: Yes normal visual inspection Chest: Chest palpation & inspection: normal inspection of the chest Resp: Auscultation: clear to auscultation bilaterally, no crackles and no wheezes Cardio: Jugular venous distension: no JVD Palpation: normal PMI Heart sounds: S1 normal heart sound present, S2 normal heart sound present, no gallops, Murmur heart sound present (1/6 ELENI aortic area) and no rubs GI: Palpation (GI): Soft to palpation Back/Spine/Pelvis: Other: unremarkable Skin: General skin exam: no rashes or lesions noted Neuro: Cranial nerves: Yes Other cranial nerve findings present Extrem: General: Yes no clubbing, cyanosis or edema Psych: Mental Status: other Results Labs and Meds Result diagrams: 11/23/20 08:25 11/23/20 08:25 Lab results: Laboratory Results - last 24 hr 11/22/20 11/23/20 11/23/20 11:48 08:25 08:25 WBC 6.9 RBC 4.05 L Hgb 12.3 Hct 39.0 MCV 96.3 MCH 30.4 MCHC 31.5 RDW 14.1 Plt Count 138 L MPV 9.2 L Absolute Nucleated RBC 0.000 Nucleated RBC % (auto) 0.0 Sodium 145 Potassium 4.4 Chloride 98 Carbon Dioxide 41 H* Anion Gap 10 L BUN 16 Creatinine 0.75 Estim Creat Clear Calc 50.1 Estimated GFR > 60 Random Glucose 94 Calcium 9.0 Urine Color YELLOW Urine Appearance CLEAR Urine pH 5.5 Ur Specific [place] >= 1.030 H Urine Protein NEG Urine Glucose (UA) NEG Urine Ketones NEG Urine Blood NEG Urine Nitrite NEG Ur Leukocyte Esterase 1+ H Urine RBC 0 Urine WBC 5-9 H Ur Squamous Epith Cells 1+ Uric Acid Crystals 2+ Urine Bacteria TRACE ECG Interpretation: EKG today shows sinus rhythm at 92/Min; slight ST depression in the anterior leads. Similar to prior study. Assessment and Plan (1) Preoperative cardiovascular examination: Status: Acute (2) Atherosclerotic cardiovascular disease: Status: Acute (3) Pneumonia: Qualifiers: Laterality: left Lung location: lower lobe of lung Pneumonia type: due to unspecified organism Qualified Code(s): J18.9 - Pneumonia, unspecified organism Status: Acute (4) Lung mass: Status: Acute (5) Ischemic cardiomyopathy: Status: Acute Labs reviewed. Hemoglobin 12.3. White cells 6.9. Platelets 138. Potassium 4.4. Creatinine 0.75. Carbon dioxide 41. Troponins from 11/21-Zuniga 0.3 and 7.9. Troponins from 10/17-37.7. Chest CT scan reports large left lingular mass/consolidation highly suspicious for malignancy. Findings progressed since CT scan on 10/17. From cardiac, described to have coronary as well as valvular calcifications. Cardiac MRI from 2020 reported to have LVEF of 42% and infarct in the inferior/inferolateral wall. In the same report, there was a description of cardiomyopathy with LVEF 25% in the history part. Overall, she very likely has underlying vascular disease, coronary disease and ischemic cardiomyopathy. I will try to obtain the cardiac catheterization data that she states was done few months back. We can repeat an echocardiogram this admission to reassess the LVEF. Overall it seems that this bronchoscopies essential for her medical care. Hence we can plan on proceeding further at intermediate risk. Procedures Date of Service Date of Service: 11/23/20
[2020-11-23] MEDS: Fluticasone Propionate Nasal 16 GM SPRAY 1 SPRAY NOSTRIL-B (11:19)
--- NOTE | 2020-11-23 13:38 | HO.PM.IMPN ---
Subjective Subjective Date of Service: 11/23/20 Interval History: seen and examined this AM feels the same, +cough/sob ROS General - no fevers or chills Cardiovascular - no chest pain Respiratory - +sob/cough Abdominal- no abdominal pain, nausea, vomiting, diarrhea Physical Exam Vital Signs: Vital Signs: Last Vital Signs Temp 97.0 F 11/23/20 11:40 Pulse 89 11/23/20 11:40 Resp 18 11/23/20 11:40 BP 93/46 L 11/23/20 11:40 Pulse Ox 91 L 11/23/20 11:40 Oxygen Flow Rate 2 11/21/20 11:34 Body Mass Index 23.2 Const: Other: General - no acute distress, appears comfortable Cardiovascular - regular rate and rhythm, S1-S2 Lungs - normal respiratory effort, clear to auscultation bilaterally, no wheezing Abdomen - soft, nontender, no rebound or guarding Extremities - no edema bilaterally Neuro - awake and alert, no focal deficits Objective Data Current Medications Generic Name Dose Route Start Last Admin Trade Name Goyoq PRN Reason Stop Dose Admin Acetaminophen 650 mg 11/21/20 18:30 Acetaminophen 325 Mg Tablet PO Q6H PRN Pain, Mild (Pain Scale 1-3) Albuterol/Ipratropium 3 ml 11/21/20 20:00 11/23/20 10:55 Albuterol/Iprat 2.5/0.5mg 3 Ml Ampul.Neb INHALE 3 ml RQ4H WHILE AWAKE CAROL Administration Atorvastatin Calcium 80 mg 11/22/20 09:00 11/23/20 07:54 Atorvastatin Calcium 80 Mg Tablet PO 80 mg DAILY CAROL Administration Carvedilol 3.125 mg 11/23/20 21:00 Carvedilol 3.125 Mg Tablet PO BID CAROL Protocol Docusate Sodium 100 mg 11/21/20 18:30 Docusate Sodium 100 Mg Capsule PO DAILY PRN Constipation Fluticasone Propionate 1 spray 11/22/20 09:00 11/23/20 11:19 Fluticasone Propionate Nasal 16 Gm [place] NOSTRIL-B 1 spray DAILY CAROL Administration Furosemide 20 mg 11/22/20 09:00 11/23/20 07:54 Furosemide 20 Mg Tablet PO 20 mg DAILY CAROL Administration Protocol Guaifenesin/Dextromethorphan 10 ml 11/21/20 18:30 Guaifenesin Dm 200/20/10 Ml 10 Ml Syrup PO Q6H PRN Cough Heparin Sodium (Porcine) 5,000 unit 11/21/20 20:00 11/23/20 07:53 Heparin Sodium,Porcine 5,000 Unit/Ml Vial SUBCUT 5,000 unit Q12H CAROL Administration Piperacillin Sod/Tazobactam 50 mls @ 100 mls/hr 11/21/20 19:00 11/23/20 06:25 Sod 3.375 gm/ Sodium Chloride IV Infused Q6H CAROL Infusion Loratadine 10 mg 11/22/20 09:00 11/23/20 07:54 Loratadine 10 Mg Tablet PO 10 mg DAILY CAROL Administration Losartan Potassium 25 mg 11/22/20 09:00 11/23/20 07:53 Losartan Potassium 25 Mg Tablet PO 25 mg DAILY [facility] Administration Protocol Magnesium Oxide 400 mg 11/22/20 09:00 11/23/20 07:54 Magnesium Oxide 400 Mg Tablet PO 400 mg DAILY CAROL Administration Multi-Ingred Cream/Lotion/Oil/Oint 1 appl 11/23/20 21:00 Mineral Oil/Petrolatum,White 106 Gm Tube TOPICAL BID CAROL Ondansetron HCl 4 mg 11/21/20 18:30 Ondansetron Hcl 4 Mg/2 Ml Vial IVPUSH Q8H PRN Nausea and Vomiting Sodium Chloride 3 ml 11/22/20 00:00 11/23/20 07:57 0.9 % Sodium Chloride Flush 3 Ml Syringe IVFLUSH 3 ml QSHIFT CAROL Administration Labs CBC & Chem 7: 11/23/20 08:25 11/23/20 08:25 Labs: Laboratory Results - last 24 hr 11/23/20 11/23/20 08:25 08:25 MCV 96.3 MCH 30.4 MCHC 31.5 RDW 14.1 Plt Count 138 L MPV 9.2 L Absolute Nucleated RBC 0.000 Nucleated RBC % (auto) 0.0 Anion Gap 10 L Estim Creat Clear Calc 50.1 Estimated GFR > 60 Random Glucose 94 Calcium 9.0 Microbiology Microbiology Results: Microbiology 11/21/20 12:35 Blood Culture - Preliminary Blood - Venous No growth after 24 hours. 11/21/20 12:35 Blood Culture - Preliminary Blood - Venous No growth after 24 hours. Assessment and Plan (1) Pneumonia: Status: Acute Assessment and Plan: This is a 70 yo F CAD - s/p GA last month, CHF, COPD, HTN who presented to the hospital with shortness of breath. Her CT scan is concerning for lung Ca and probable post-obstructive pneumonia. She is admitted for further work up. 1. Pneumonia, likely post-obstructive IV zosyn f/u cultures, blood cx negative 2. Lung mass likely cancerous pulmonary consulted - plan for bronch, timing to be determined 3. Chronic Resp. Failure reports she has been on O2 at home (2L) continue the same 4. Thrombocytopenia mild, monitor 5. CHF, unspecified cardioloby consulted for pre-op eval -- see their notes echo today not in exacerbation continue baseline meds 6. HLD statin 7. HTN bp soft today, will dec coreg to 3.125mg BID low bp suspected from meds and not severe sepsis Full Code DVT pptx, subcut. heparin Quality Stroke Does the patient have a stroke diagnosis?: No VTE Prior VTE?: No VTE Risk Level:: Medical - moderate - high VTE Device Contraindication: N/A - Device Ordered VTE Drug Contraindication: N/A - Med Ordered
[2020-11-23] MEDS: Acetaminophen 325 MG TABLET 650 MG PO (19:59)
[2020-11-23] MEDS: Mineral Oil/Petrolatum,White 106 GM Tube 1 APPL TOPICAL (20:01)
[2020-11-24] VITALS (12 sets, daily range): BP systolic 99–127; BP diastolic 45–56; PULSE 81–100; RESP 15–18; TEMP 36.1–37.4; O2SAT 91–96
[2020-11-24] MEDS: Piperacillin Sodium/Tazobactam 3.375 GM in 0.9 % Sodium Chloride 50 ML IV ×3 (06:07→20:02)
[2020-11-24 07:29] LABS: Hematocrit 40.4 % (37-47); Hemoglobin 12.4 g/dl (12.0-16.0); Mean Corpuscular HGB Conc 30.7 g/dl (31.0-35.0); Mean Corpuscular Hemoglobin 29.4 pg (27.0-33.0); Mean Corpuscular Volume 95.7 fL (80-98); Mean Platelet Volume 9.7 fL (9.4-12.3); Platelet Count 160 X10*3/uL (160-400); Red Blood Count 4.22 X10*6/uL (4.20-5.50); Red Cell Distribution Width 14.2 % (11.0-16.0); White Blood Count 6.6 X10*3/uL (4.8-10.8)
[2020-11-24] MEDS: Albuterol/Iprat 2.5/0.5MG 3 ML AMPUL.NEB INHALE ×4 (07:31→21:24)
[2020-11-24] MEDS: Loratadine 10 MG TABLET PO (08:04)
[2020-11-24] MEDS: Atorvastatin Calcium 80 MG TABLET PO (08:04)
[2020-11-24] MEDS: Magnesium Oxide 400 MG TABLET PO (08:04)
[2020-11-24] MEDS: Heparin Sodium,Porcine 5,000 UNIT/ML VIAL 5000 UNIT SUBCUT ×2 (08:04→21:15)
[2020-11-24] MEDS: Furosemide 20 MG TABLET PO (08:04)
[2020-11-24] MEDS: carvediloL 3.125 MG TABLET PO ×2 (08:04→21:15)
[2020-11-24] MEDS: Losartan Potassium 25 MG TABLET PO (08:04)
[2020-11-24] MEDS: 0.9 % Sodium Chloride Flush 3 ML SYRINGE IVFLUSH ×3 (08:05→21:15)
[2020-11-24] MEDS: Mineral Oil/Petrolatum,White 106 GM Tube 1 APPL TOPICAL ×2 (08:06→21:23)
[2020-11-24] MEDS: Fluticasone Propionate Nasal 16 GM SPRAY 1 SPRAY NOSTRIL-B (08:06)
[2020-11-24 08:23] LABS: Anion Gap 14 (12-20); Blood Urea Nitrogen 16 mg/dL (9-16); Calcium 8.6 mg/dL (8.4-10.2); Carbon Dioxide 38 mmol/L (22-29); Chloride 98 mmol/L (96-108); Creatinine Clr Calc Pharmacy 50.7; Estimated Glomerular Filt Rate > 60; Glucose Random 85 mg/dL (60-115); Potassium 4.5 mmol/L (3.3-5.1); Sodium 145 mmol/L (135-145)
--- NOTE | 2020-11-24 09:35 | HO.ANESPROP2 ---
Documented by User: Ria Lopez NP 11/24/20 09:38 HPI - Anesthesia Eval Consult details Narrative: 70yo F for Bronchoscopy Fiberoptic Admitted 11/21/20 CAD - s/p VT last month, CHF, COPD, HTN who presented to the hospital with shortness of breath. Her CT scan is concerning for lung Ca and probable post-obstructive pneumonia. Cardiology consult 11/23/20: Overall, she very likely has underlying vascular disease, coronary disease and ischemic cardiomyopathy.? I will try to obtain the cardiac catheterization data that she states was done few months back.? We can repeat an echocardiogram this admission to reassess the LVEF.? Overall it seems that this bronchoscopies essential for her medical care.? Hence we can plan on proceeding further at intermediate risk. (10/2020 cath report is pending) [facility] Active Problems Active Problems: All Active Problems (Updated 11/23/20 @ 10:21 by Matt Love MD) Ischemic cardiomyopathy (Acute) Atherosclerotic cardiovascular disease (Acute) Preoperative cardiovascular examination (Acute) CAD (coronary artery disease) (Acute) Pneumonia (Acute) Lung mass (Acute) Past Medical History Medical History CAD (coronary artery disease) CHF (congestive heart failure) COPD (chronic obstructive pulmonary disease) High cholesterol HTN (hypertension) Functional capacity: independent ambulation Social History Social History Household Members: Spouse Household Members Other:: and son Housing: House Do you presently have visiting nurse or other home services: No Patient Tobacco Use Status: Former Tobacco user Use of substances other than those prescribed or required for medical reasons: No Currently Displaying Signs/Symptoms of Drug Intoxication Withdrawal: No Have you been hit, kicked, punched, or otherwise hurt by someone within the past year? If so, by whom?: No Do you feel safe in your current relationship?: Yes Is there a partner from a previous relationship who is making you feel unsafe now?: No Are you made to feel afraid or neglected: No Are you DNR?: No Advance Directives: Yes Advance Directives Information Provided: Yes Advance Directives on File: No Advance Directives Date on File: 11/22/20 Do you have thoughts of harming others: None Do you have a plan to hurt others: No Plan Recently lost weight without trying: Yes How much weight loss: Unsure Eating poorly because of decreased appetite: Yes Nutrition screen score: 5 Nutrition Risks: Poor intake 0-25% >4 days Patient : No : No Poor oral hygiene: No service: No Meds Allergies Allergy/AdvReac Type Severity Reaction Status Date / Time red dye Allergy Hives Verified 11/25/20 06:35 lisinopril AdvReac Cough Verified 11/21/20 11:34 hydrofluoroalkane Allergy tongue Uncoded 11/25/20 06:35 swelling Active Medications: Current Medications Generic Name Dose Route Start Last Admin Trade Name Freq PRN Reason Stop Dose Admin Acetaminophen 650 mg 11/21/20 18:30 11/23/20 19:59 Acetaminophen 325 Mg Tablet PO 650 mg Q6H PRN Administration Pain, Mild (Pain Scale 1-3) Albuterol/Ipratropium 3 ml 11/21/20 20:00 11/24/20 07:31 Albuterol/Iprat 2.5/0.5mg 3 Ml Ampul.Neb INHALE 3 ml RQ4H WHILE AWAKE CAROL Administration Atorvastatin Calcium 80 mg 11/22/20 09:00 11/24/20 08:04 Atorvastatin Calcium 80 Mg Tablet PO 80 mg DAILY CAROL Administration Carvedilol 3.125 mg 11/23/20 21:00 11/24/20 08:04 Carvedilol 3.125 Mg Tablet PO 3.125 mg BID CAROL Administration Protocol Docusate Sodium 100 mg 11/21/20 18:30 Docusate Sodium 100 Mg Capsule PO DAILY PRN Constipation Fluticasone Propionate 1 spray 11/22/20 09:00 11/24/20 08:06 Fluticasone Propionate Nasal 16 Gm Keiser NOSTRIL-B 1 spray DAILY CAROL Administration Furosemide 20 mg 11/22/20 09:00 11/24/20 08:04 Furosemide 20 Mg Tablet PO 20 mg DAILY CAROL Administration Protocol Guaifenesin/Dextromethorphan 10 ml 11/21/20 18:30 Guaifenesin Dm 200/20/10 Ml 10 Ml Syrup PO Q6H PRN Cough Heparin Sodium (Porcine) 5,000 unit 11/21/20 20:00 11/24/20 08:04 Heparin Sodium,Porcine 5,000 Unit/Ml Vial SUBCUT 5,000 unit Q12H CAROL Administration Piperacillin Sod/Tazobactam 50 mls @ 100 mls/hr 11/21/20 19:00 11/24/20 06:32 Sod 3.375 gm/ Sodium Chloride IV Infused Q6H CAROL Infusion Loratadine 10 mg 11/22/20 09:00 11/24/20 08:04 Loratadine 10 Mg Tablet PO 10 mg DAILY CAROL Administration Losartan Potassium 25 mg 11/22/20 09:00 11/24/20 08:04 Losartan Potassium 25 Mg Tablet PO 25 mg DAILY CAROL Administration Protocol Magnesium Oxide 400 mg 11/22/20 09:00 11/24/20 08:04 Magnesium Oxide 400 Mg Tablet PO 400 mg DAILY CAROL Administration Multi-Ingred Cream/Lotion/Oil/Oint 1 appl 11/23/20 21:00 11/24/20 08:06 Mineral Oil/Petrolatum,White 106 Gm Tube TOPICAL 1 appl BID CAROL Administration Ondansetron HCl 4 mg 11/21/20 18:30 Ondansetron Hcl 4 Mg/2 Ml Vial IVPUSH Q8H PRN Nausea and Vomiting Sodium Chloride 3 ml 11/22/20 00:00 11/24/20 08:05 0.9 % Sodium Chloride Flush 3 Ml Syringe IVFLUSH 3 ml QSHIFT CAROL Administration Home Medications Medication Instructions Recorded Confirmed Last Taken Type Caltrate 600 plus D 1 tab PO DAILY 11/21/20 11/21/20 Unknown History aspirin 81 mg tablet 81 mg PO DAILY 11/21/20 11/21/20 Unknown History atorvastatin 80 mg tablet 80 mg PO DAILY 11/21/20 11/21/20 Unknown History carvedilol 6.25 mg tablet 6.25 mg PO BID 11/21/20 11/21/20 Unknown History fluticasone propionate 50 1 spray INTRANASAL DAILY 11/21/20 11/21/20 Unknown History mcg/actuation nasal spray,suspension furosemide 20 mg tablet 20 mg PO DAILY 11/21/20 11/21/20 Unknown History loratadine 10 mg tablet (Claritin) 10 mg PO DAILY 11/21/20 11/21/20 Unknown History losartan 25 mg tablet 25 mg PO DAILY 11/21/20 11/21/20 Unknown History magnesium 1 tab PO DAILY 11/21/20 11/21/20 Unknown History Exam Exam Date and Time: November 24, 2020 0935 Height,Weight and Vital Signs: Height 4 ft 11 in Weight 52.163 kg Last Vital Signs Temp 96.9 F 11/24/20 07:45 Pulse 92 11/24/20 08:04 Resp 18 11/24/20 07:45 BP 124/55 L 11/24/20 08:04 Pulse Ox 95 11/24/20 07:45 Oxygen Flow Rate 2 11/21/20 11:34 Pertinent Lab Results Pertinent Lab Results: Laboratory Tests 11/21/20 11/21/20 11/21/20 12:35 12:35 12:36 WBC 8.3 RBC 4.45 Hgb 13.4 Hct 42.4 MCV 95.3 MCH 30.1 MCHC 31.6 RDW 13.8 Plt Count 151 L MPV 9.7 Immature Gran % (Auto) 0.1 Neut % (Auto) 62.6 Lymph % (Auto) 15.[address] % (Auto) 9.9 Eos % (Auto) 11.9 H Baso % (Auto) 0.5 Lymph # (Auto) 1.3 [place] # (Auto) 0.8 Eos # (Auto) 1.0 H Baso # (Auto) 0.0 Abs Immat Gran (auto) 0.01 Absolute Neuts (auto) 5.2 Absolute Nucleated RBC 0.000 Nucleated RBC % (auto) 0.0 PT 11.9 INR 1.0 APTT 30.9 Sodium Potassium Chloride Carbon Dioxide Anion Gap BUN Creatinine Estim Creat Clear Calc Estimated GFR Random Glucose Lactic Acid 1.1 Calcium Total Bilirubin AST ALT Alkaline Phosphatase Troponin I High Sens B-Natriuretic Peptide Total Protein Albumin Urine Color Urine Appearance Urine pH Ur Specific [place] Urine Protein Urine Glucose (UA) Urine Ketones Urine Blood Urine Nitrite Ur Leukocyte Esterase Urine RBC Urine WBC Ur Squamous Epith Cells Uric Acid Crystals Urine Bacteria Respiratory Panel [place] Adenovirus (Rapid PCR) B.pert (TEM-PCR) B.parapertussis DNA PCR C. pneumoniae DNA (PCR) Coronavirus OC43 (PCR) Coronavirus HKU1 (PCR) Coronavirus 229E (PCR) COVID-19 (SUN) COVID-19 Clin Com Coronavirus NL63 (PCR) Human Metapneumovir PCR Influenza A (RT-PCR) Influenza B (RT-PCR) M. pneumoniae (PCR) Parainfluenza 1 (PCR) Parainfluenza 2 (PCR) Parainfluenza 3 (PCR) Parainfluenza 4 (PCR) RSV (PCR) Entero/Rhino (PCR) SARS-CoV-2 RNA (RT-PCR) 11/21/20 11/21/20 11/21/20 12:36 12:36 12:36 WBC RBC Hgb Hct MCV MCH MCHC RDW Plt Count MPV Immature Gran % (Auto) Neut % (Auto) Lymph % (Auto) [place] % (Auto) Eos % (Auto) Baso % (Auto) Lymph # (Auto) [place] # (Auto) Eos # (Auto) Baso # (Auto) Abs Immat Gran (auto) Absolute Neuts (auto) Absolute Nucleated RBC Nucleated RBC % (auto) PT INR APTT Sodium 142 Potassium 4.7 Chloride 96 Carbon Dioxide 38 H Anion Gap 13 BUN 16 Creatinine 0.78 Estim Creat Clear Calc 48.1 Estimated GFR > 60 Random Glucose 121 H Lactic Acid Calcium 9.1 Total Bilirubin 0.3 AST 24 ALT 15 Alkaline Phosphatase 62 Troponin I High Sens 11.3 D B-Natriuretic Peptide 333 H Total Protein 6.5 Albumin 3.5 Urine Color Urine Appearance Urine pH Ur Specific [place] Urine Protein Urine Glucose (UA) Urine Ketones Urine Blood Urine Nitrite Ur Leukocyte Esterase Urine RBC Urine WBC Ur Squamous Epith Cells Uric Acid Crystals Urine Bacteria Respiratory Panel [place] Adenovirus (Rapid PCR) B.pert (TEM-PCR) B.parapertussis DNA PCR C. pneumoniae DNA (PCR) Coronavirus OC43 (PCR) Coronavirus HKU1 (PCR) Coronavirus 229E (PCR) COVID-19 (SUN) Negative COVID-19 Clin Com See Note Coronavirus NL63 (PCR) Human Metapneumovir PCR Influenza A (RT-PCR) Influenza B (RT-PCR) M. pneumoniae (PCR) Parainfluenza 1 (PCR) Parainfluenza 2 (PCR) Parainfluenza 3 (PCR) Parainfluenza 4 (PCR) RSV (PCR) Entero/Rhino (PCR) SARS-CoV-2 RNA (RT-PCR) 11/21/20 11/21/20 11/22/20 14:30 16:26 05:25 WBC 4.4 L RBC 3.99 L Hgb 11.8 L Hct 38.3 MCV 96.0 MCH 29.6 MCHC 30.8 L RDW 13.7 Plt Count 130 L MPV 9.6 Immature Gran % (Auto) Neut % (Auto) Lymph % (Auto) [place] % (Auto) Eos % (Auto) Baso % (Auto) Lymph # (Auto) [place] # (Auto) Eos # (Auto) Baso # (Auto) Abs Immat Gran (auto) Absolute Neuts (auto) Absolute Nucleated RBC 0.000 Nucleated RBC % (auto) 0.0 PT INR APTT Sodium Potassium Chloride Carbon Dioxide Anion Gap BUN Creatinine Estim Creat Clear Calc Estimated GFR Random Glucose Lactic Acid Calcium Total Bilirubin AST ALT Alkaline Phosphatase Troponin I High Sens 7.9 B-Natriuretic Peptide Total Protein Albumin Urine Color Urine Appearance Urine pH Ur Specific [place] Urine Protein Urine Glucose (UA) Urine Ketones Urine Blood Urine Nitrite Ur Leukocyte Esterase Urine RBC Urine WBC Ur Squamous Epith Cells Uric Acid Crystals Urine Bacteria Respiratory Panel [place] See Note Adenovirus (Rapid PCR) Not Detected B.pert (TEM-PCR) Not Detected B.parapertussis DNA PCR Not Detected C. pneumoniae DNA (PCR) Not Detected Coronavirus OC43 (PCR) Not Detected Coronavirus HKU1 (PCR) Not Detected Coronavirus 229E (PCR) Not Detected COVID-19 (SUN) COVID-19 Clin Com Coronavirus NL63 (PCR) Not Detected Human Metapneumovir PCR Not Detected Influenza A (RT-PCR) Not Detected Influenza B (RT-PCR) Not Detected M. pneumoniae (PCR) Not Detected Parainfluenza 1 (PCR) Not Detected Parainfluenza 2 (PCR) Not Detected Parainfluenza 3 (PCR) Not Detected Parainfluenza 4 (PCR) Not Detected RSV (PCR) Not Detected Entero/Rhino (PCR) Not Detected SARS-CoV-2 RNA (RT-PCR) Not Detected 11/22/20 11/22/20 11/23/20 05:25 11:48 08:25 WBC 6.9 RBC 4.05 L Hgb 12.3 Hct 39.0 MCV 96.3 MCH 30.4 MCHC 31.5 RDW 14.1 Plt Count 138 L MPV 9.2 L Immature Gran % (Auto) Neut % (Auto) Lymph % (Auto) [place] % (Auto) Eos % (Auto) Baso % (Auto) Lymph # (Auto) [place] # (Auto) Eos # (Auto) Baso # (Auto) Abs Immat Gran (auto) Absolute Neuts (auto) Absolute Nucleated RBC 0.000 Nucleated RBC % (auto) 0.0 PT INR APTT Sodium 145 Potassium 4.2 Chloride 99 Carbon Dioxide 36 H Anion Gap 14 BUN 19 H Creatinine 0.79 Estim Creat Clear Calc 47.5 Estimated GFR > 60 Random Glucose 120 H Lactic Acid Calcium 8.5 D Total Bilirubin AST ALT Alkaline Phosphatase Troponin I High Sens B-Natriuretic Peptide Total Protein Albumin Urine Color YELLOW Urine Appearance CLEAR Urine pH 5.5 Ur Specific [place] >= 1.030 H Urine Protein NEG Urine Glucose (UA) NEG Urine Ketones NEG Urine Blood NEG Urine Nitrite NEG Ur Leukocyte Esterase 1+ H Urine RBC 0 Urine WBC 5-9 H Ur Squamous Epith Cells 1+ Uric Acid Crystals 2+ Urine Bacteria TRACE Respiratory Panel [place] Adenovirus (Rapid PCR) B.pert (TEM-PCR) B.parapertussis DNA PCR C. pneumoniae DNA (PCR) Coronavirus OC43 (PCR) Coronavirus HKU1 (PCR) Coronavirus 229E (PCR) COVID-19 (SUN) COVID-19 Clin Com Coronavirus NL63 (PCR) Human Metapneumovir PCR Influenza A (RT-PCR) Influenza B (RT-PCR) M. pneumoniae (PCR) Parainfluenza 1 (PCR) Parainfluenza 2 (PCR) Parainfluenza 3 (PCR) Parainfluenza 4 (PCR) RSV (PCR) Entero/Rhino (PCR) SARS-CoV-2 RNA (RT-PCR) 11/23/20 11/24/20 11/24/20 08:25 06:25 06:25 WBC 6.6 RBC 4.22 Hgb 12.4 Hct 40.4 MCV 95.7 MCH 29.4 MCHC 30.7 L RDW 14.2 Plt Count 160 MPV 9.7 Immature Gran % (Auto) Neut % (Auto) Lymph % (Auto) [place] % (Auto) Eos % (Auto) Baso % (Auto) Lymph # (Auto) [place] # (Auto) Eos # (Auto) Baso # (Auto) Abs Immat Gran (auto) Absolute Neuts (auto) Absolute Nucleated RBC 0.000 Nucleated RBC % (auto) 0.0 PT INR APTT Sodium 145 145 Potassium 4.4 4.5 Chloride 98 98 Carbon Dioxide 41 H* 38 H Anion Gap 10 L 14 BUN 16 16 Creatinine 0.75 0.74 Estim Creat Clear Calc 50.1 50.7 Estimated GFR > 60 > 60 Random Glucose 94 85 Lactic Acid Calcium 9.0 8.6 Total Bilirubin AST ALT Alkaline Phosphatase Troponin I High Sens B-Natriuretic Peptide Total Protein Albumin Urine Color Urine Appearance Urine pH Ur Specific [place] Urine Protein Urine Glucose (UA) Urine Ketones Urine Blood Urine Nitrite Ur Leukocyte Esterase Urine RBC Urine WBC Ur Squamous Epith Cells Uric Acid Crystals Urine Bacteria Respiratory Panel [place] Adenovirus (Rapid PCR) B.pert (TEM-PCR) B.parapertussis DNA PCR C. pneumoniae DNA (PCR) Coronavirus OC43 (PCR) Coronavirus HKU1 (PCR) Coronavirus 229E (PCR) COVID-19 (SUN) COVID-19 Clin Com Coronavirus NL63 (PCR) Human Metapneumovir PCR Influenza A (RT-PCR) Influenza B (RT-PCR) M. pneumoniae (PCR) Parainfluenza 1 (PCR) Parainfluenza 2 (PCR) Parainfluenza 3 (PCR) Parainfluenza 4 (PCR) RSV (PCR) Entero/Rhino (PCR) SARS-CoV-2 RNA (RT-PCR) Narrative Narrative: EKG 11/21/20 Vent. Rate : 092 BPM ? ? Atrial Rate : 092 BPM ?? P-R Int : 130 ms? QRS Dur : 080 ms ? ? QT Int : 352 ms ? ? ? P-R-T Axes : 071 050 029 degrees ?? QTc Int : 435 ms ? Normal sinus rhythm ST & T wave abnormality, consider lateral ischemia Abnormal ECG When compared with ECG of 17-OCT-2020 11:38, T wave inversion no longer evident in Anterior leads ECHO 11/23/20 Conclusions: - The left ventricular systolic function is mildly decreased.? ? The calculated ejection fraction is 43% by biplane method. ? ? ? - The basal inferior and mid inferior segments are akinetic. ? ? - There is mild to moderately decreased right ventricular? systolic function. ? - There is mild calcification of the aortic valve. ? - There is mild mitral annular calcification.? ?? Assessment and Plan Assessment Anesthesia Assessment: Chart Reviewed Documented by User: Debbie Oswald MD 11/25/20 08:13 [facility] Past Medical History Medical History CAD (coronary artery disease) CHF (congestive heart failure) COPD (chronic obstructive pulmonary disease) High cholesterol HTN (hypertension) Surgical History History of Problems with Anesthesia: No Social History Social History Household Members: Spouse Household Members Other:: and son Housing: House Do you presently have visiting nurse or other home services: No Patient Tobacco Use Status: Former Tobacco user Use of substances other than those prescribed or required for medical reasons: No Currently Displaying Signs/Symptoms of Drug Intoxication Withdrawal: No Have you been hit, kicked, punched, or otherwise hurt by someone within the past year? If so, by whom?: No Do you feel safe in your current relationship?: Yes Is there a partner from a previous relationship who is making you feel unsafe now?: No Are you made to feel afraid or neglected: No Are you DNR?: No Advance Directives: Yes Advance Directives Information Provided: Yes Advance Directives on File: No Advance Directives Date on File: 11/22/20 Do you have thoughts of harming others: None Do you have a plan to hurt others: No Plan Recently lost weight without trying: Yes How much weight loss: Unsure Eating poorly because of decreased appetite: Yes Nutrition screen score: 5 Nutrition Risks: Poor intake 0-25% >4 days Patient : No : No Poor oral hygiene: No service: No Meds Allergies Allergy/AdvReac Type Severity Reaction Status Date / Time red dye Allergy Hives Verified 11/25/20 06:35 lisinopril AdvReac Cough Verified 11/21/20 11:34 hydrofluoroalkane Allergy tongue Uncoded 11/25/20 06:35 swelling Home Medications Medication Instructions Recorded Confirmed Last Taken Type Caltrate 600 plus D 1 tab PO DAILY 11/21/20 11/21/20 Unknown History aspirin 81 mg tablet 81 mg PO DAILY 11/21/20 11/21/20 Unknown History atorvastatin 80 mg tablet 80 mg PO DAILY 11/21/20 11/21/20 Unknown History carvedilol 6.25 mg tablet 6.25 mg PO BID 11/21/20 11/21/20 Unknown History fluticasone propionate 50 1 spray INTRANASAL DAILY 11/21/20 11/21/20 Unknown History mcg/actuation nasal spray,suspension furosemide 20 mg tablet 20 mg PO DAILY 11/21/20 11/21/20 Unknown History loratadine 10 mg tablet (Claritin) 10 mg PO DAILY 11/21/20 11/21/20 Unknown History losartan 25 mg tablet 25 mg PO DAILY 11/21/20 11/21/20 Unknown History magnesium 1 tab PO DAILY 11/21/20 11/21/20 Unknown History Exam Airway Mallampati Class: II (Edentulous) TM Dist: >3cm Neck ROM: Full Denture: Upper and Lower Partial: Lower Loose/Missing/Broken Teeth: Yes, Upper and Lower Heart: RRR Lungs: distant no wheezing Assessment and Plan Assessment Anesthesia Assessment: Anesthesia Plan Discussed Final Anesthetic Review History of Problems with Anesthesia: No NPO: Yes ASA Class: III Final Preanesthetic Review: Meds/Allgs Chart Reviewed, Consent Obtained/Reviewed and Anes Risks/Benef Reviewed Patient Risk: Intermediate Procedure Risk: Intermediate Anesthetic Plan Anesthetic Plan: GA Disposition: Standard PACU
--- NOTE | 2020-11-24 09:38 | PM.PNPUL ---
Subjective Subjective Date of Service: 11/24/20 Interval history: The patient was seen on exam. Overall she is doing well. She continues on the IV antibiotics. She had a cardiac evaluation and currently he is able to proceed with endoscopy. Will go ahead and plan for bronchoscopy tomorrow morning at 7:30 a.m. Objective Data Labs CBC & Chem 7: 11/24/20 06:25 11/24/20 06:25 Labs: Laboratory Results - last 24 hr 11/24/20 11/24/20 06:25 06:25 WBC 6.6 RBC 4.22 Hgb 12.4 Hct 40.4 MCV 95.7 MCH 29.4 MCHC 30.7 L RDW 14.2 Plt Count 160 MPV 9.7 Absolute Nucleated RBC 0.000 Nucleated RBC % (auto) 0.0 Sodium 145 Potassium 4.5 Chloride 98 Carbon Dioxide 38 H Anion Gap 14 BUN 16 Creatinine 0.74 Estim Creat Clear Calc 50.7 Estimated GFR > 60 Random Glucose 85 Calcium 8.6 Microbiology Microbiology Results: Microbiology 11/21/20 12:35 Blood - Venous Blood Culture - Preliminary No growth after 48 hours. 11/21/20 12:35 Blood - Venous Blood Culture - Preliminary No growth after 48 hours. Review of Systems Review of Systems Yes all other systems are reviewed and are negative Cardiovascular: Reports as per HPI, Reports no additional cardiovascular complaints, Denies acrocyanosis, Denies cool extremities, Denies painful fingertips, Denies chest pain, Denies chest pain at rest, Denies diaphoresis, Denies syncope, Denies irregular heart rhythm, Denies claudication, Denies leg edema, Denies lightheadedness, Denies palpitations and Reports dyspnea Respiratory: Reports dyspnea Denies syncope Endocrine: Denies palpitations Physical Exam Vital Signs: Vital Signs: Last Vital Signs Temp 96.9 F 11/24/20 07:45 Pulse 92 11/24/20 08:04 Resp 18 11/24/20 07:45 BP 124/55 L 11/24/20 08:04 Pulse Ox 95 11/24/20 07:45 Oxygen Flow Rate 2 11/21/20 11:34 Body Mass Index 23.2 Const: General: alert Neck: Neck: Yes normal visual inspection, Yes full ROM and Yes no lymphadenopathy Chest: Chest palpation & inspection: normal inspection of the chest Resp: Auscultation: diminished lung sounds Cardio: Rate: regular rate Rhythm: regular rhythm Heart sounds: S1 normal heart sound present and S2 normal heart sound present GI: Palpation (GI): Soft to palpation and nontender Auscultation: normal bowel sounds Skin: General skin exam: rashes and/or lesions noted Procedures Date of Service Date of Service: 11/24/20 Assessment and Plan Assessment and plan (1) Pneumonia: Status: Acute (2) Lung mass: Status: Acute Assessment and Plan: Continue IV antibiotics the worsening postobstructive pneumonia Plan for bronchoscopy tomorrow 11/25 at 7:30 a.m. in the morning Continue respiratory therapy and CPT Time Spent With Patient Time: Total time spent is greater than 50% in coordination of care (as documented) at patient's floor/unit and/or counseling patient: Time with patient: 25 - 35 minutes Progress Note: Quality Stroke Does the patient have a stroke diagnosis?: No
--- NOTE | 2020-11-24 10:26 | P.PNCA_ITS ---
Subjective Subjective Date of Service: 11/24/20 Interval history: Feels OK. No cardiac symptoms. Review of Systems Review of Systems Yes all other systems are reviewed and are negative Cardiovascular: Reports as per HPI, Reports no additional cardiovascular complaints, Denies acrocyanosis, Denies cool extremities, Denies painful fingertips, Denies chest pain, Denies chest pain at rest, Denies diaphoresis, Denies syncope, Denies irregular heart rhythm, Denies claudication, Denies leg edema, Denies lightheadedness, Denies palpitations and Reports dyspnea Respiratory: Reports dyspnea Denies syncope Endocrine: Denies palpitations Physical Exam Vital Signs: Last Vital Signs Temp 96.9 F 11/24/20 07:45 Pulse 92 11/24/20 08:04 Resp 18 11/24/20 07:45 BP 124/55 L 11/24/20 08:04 Pulse Ox 95 11/24/20 07:45 Oxygen Flow Rate 2 11/21/20 11:34 Body Mass Index 23.2 Const General: cooperative and no acute distress [facility] Other: Unremarkable Neck Neck: Yes normal visual inspection Chest Chest palpation & inspection: normal inspection of the chest Resp Auscultation: clear to auscultation bilaterally, no crackles and no wheezes Cardio Jugular venous distension: no JVD Palpation: normal PMI Heart sounds: S1 normal heart sound present, S2 normal heart sound present, no gallops, Murmur heart sound present (1/6 ELENI aortic area) and no rubs GI Palpation (GI): Soft to palpation Back/Spine/Pelvis Other: unremarkable Skin General skin exam: no rashes or lesions noted Neuro Cranial nerves: Yes Other cranial nerve findings present Extrem General: Yes no clubbing, cyanosis or edema Psych Mental Status: other Results Labs and Meds Result diagrams: 11/24/20 06:25 11/24/20 06:25 Lab results: Laboratory Results - last 24 hr 11/24/20 11/24/20 06:25 06:25 WBC 6.6 RBC 4.22 Hgb 12.4 Hct 40.4 MCV 95.7 MCH 29.4 MCHC 30.7 L RDW 14.2 Plt Count 160 MPV 9.7 Absolute Nucleated RBC 0.000 Nucleated RBC % (auto) 0.0 Sodium 145 Potassium 4.5 Chloride 98 Carbon Dioxide 38 H Anion Gap 14 BUN 16 Creatinine 0.74 Estim Creat Clear Calc 50.7 Estimated GFR > 60 Random Glucose 85 Calcium 8.6 Progress Note: A&P Assessment and plan (1) Preoperative cardiovascular examination: Status: Acute (2) Atherosclerotic cardiovascular disease: Status: Acute (3) Pneumonia: Status: Acute (4) Lung mass: Status: Acute (5) Ischemic cardiomyopathy: Status: Acute Assessment and Plan: Troponins from 11/21- 11.3 and 7.9. Troponins from 10/17-37.7. Chest CT scan reports large left lingular mass/consolidation highly suspicious for malignancy. Findings progressed since CT scan on 10/17. From cardiac, described to have coronary as well as valvular calcifications. Cardiac MRI from 2019 reported to have LVEF of 42% and infarct in the inferior/inferolateral wall. In the same report, there was a description of cardiomyopathy with LVEF 25% in the history part. Echocardiogram from this hospitalization-LVEF 43%; inferior akinesis and reduced right ventricular function. Based on above, she has underlying vascular disease, coronary disease and ischemic cardiomyopathy. Could not obtain the cardiac catheterization data in spite of requesting. Overall it seems that this bronchoscopy is essential for her medical care. Hence we can plan on proceeding further at intermediate risk. Cardiac risks including myocardial infarction discussed with patient. Fall Risk Details Current Medications: Current Medications Generic Name Dose Route Start Last Admin Trade Name Freq PRN Reason Stop Dose Admin Acetaminophen 650 mg 11/21/20 18:30 11/23/20 19:59 Acetaminophen 325 Mg Tablet PO 650 mg Q6H PRN Administration Pain, Mild (Pain Scale 1-3) Albuterol/Ipratropium 3 ml 11/21/20 20:00 11/24/20 07:31 Albuterol/Iprat 2.5/0.5mg 3 Ml Ampul.Neb INHALE 3 ml RQ4H WHILE AWAKE CAROL Administration Atorvastatin Calcium 80 mg 11/22/20 09:00 11/24/20 08:04 Atorvastatin Calcium 80 Mg Tablet PO 80 mg DAILY CAROL Administration Carvedilol 3.125 mg 11/23/20 21:00 11/24/20 08:04 Carvedilol 3.125 Mg Tablet PO 3.125 mg BID CAROL Administration Protocol Docusate Sodium 100 mg 11/21/20 18:30 Docusate Sodium 100 Mg Capsule PO DAILY PRN Constipation Fluticasone Propionate 1 spray 11/22/20 09:00 11/24/20 08:06 Fluticasone Propionate Nasal 16 Gm [place] NOSTRIL-B 1 spray DAILY CAROL Administration Furosemide 20 mg 11/22/20 09:00 11/24/20 08:04 Furosemide 20 Mg Tablet PO 20 mg DAILY CAROL Administration Protocol Guaifenesin/Dextromethorphan 10 ml 11/21/20 18:30 Guaifenesin Dm 200/20/10 Ml 10 Ml Syrup PO Q6H PRN Cough Heparin Sodium (Porcine) 5,000 unit 11/21/20 20:00 11/24/20 08:04 Heparin Sodium,Porcine 5,000 Unit/Ml Vial SUBCUT 5,000 unit Q12H CAROL Administration Piperacillin Sod/Tazobactam 50 mls @ 100 mls/hr 11/21/20 19:00 11/24/20 06:32 Sod 3.375 gm/ Sodium Chloride IV Infused Q6H CAROL Infusion Loratadine 10 mg 11/22/20 09:00 11/24/20 08:04 Loratadine 10 Mg Tablet PO 10 mg DAILY CAROL Administration Losartan Potassium 25 mg 11/22/20 09:00 11/24/20 08:04 Losartan Potassium 25 Mg Tablet PO 25 mg DAILY CAROL Administration Protocol Magnesium Oxide 400 mg 11/22/20 09:00 11/24/20 08:04 Magnesium Oxide 400 Mg Tablet PO 400 mg DAILY CAROL Administration Multi-Ingred Cream/Lotion/Oil/Oint 1 appl 11/23/20 21:00 11/24/20 08:06 Mineral Oil/Petrolatum,White 106 Gm Tube TOPICAL 1 appl BID CAROL Administration Ondansetron HCl 4 mg 11/21/20 18:30 Ondansetron Hcl 4 Mg/2 Ml Vial IVPUSH Q8H PRN Nausea and Vomiting Sodium Chloride 3 ml 11/22/20 00:00 11/24/20 08:05 0.9 % Sodium Chloride Flush 3 Ml Syringe IVFLUSH 3 ml QSHIFT CAROL Administration Time Spent With Patient Time: Total time spent is greater than 50% in coordination of care (as documented) at patient's floor/unit and/or counseling patient: Time with patient: less than 15 minutes Progress Note: Quality Stroke Does the patient have a stroke diagnosis?: No Procedures Date of Service Date of Service: 11/24/20
--- NOTE | 2020-11-24 11:13 | MHC.CM.PN ---
Per ROUNDS discussion, Patient is not yet medically cleared for dc (Bronchoscopy on 11/25/20 and PT eval needed to assist with home with services vs STR dc plan). CM will continue to follow.
--- NOTE | 2020-11-24 11:35 | HO.PM.IMPN ---
Subjective Subjective Date of Service: 11/24/20 Interval History: seen and examined this AM no new complaints Review of Systems General - no fevers or chills Cardiovascular - no chest pain Respiratory - +cough Abdominal- no abdominal pain, nausea, vomiting, diarrhea Physical Exam Vital Signs: Vital Signs: Last Vital Signs Temp 97.0 F 11/24/20 11:29 Pulse 87 11/24/20 11:29 Resp 18 11/24/20 11:29 BP 99/47 L 11/24/20 11:29 Pulse Ox 91 L 11/24/20 11:29 Oxygen Flow Rate 2 11/21/20 11:34 Body Mass Index 23.2 Const: Other: General - no acute distress, appears comfortable Cardiovascular - regular rate and rhythm, S1-S2 Lungs - normal respiratory effort, clear to auscultation bilaterally, no wheezing Abdomen - soft, nontender, no rebound or guarding Extremities - no edema bilaterally Neuro - awake and alert, no focal deficits Objective Data Current Medications Generic Name Dose Route Start Last Admin Trade Name Freq PRN Reason Stop Dose Admin Acetaminophen 650 mg 11/21/20 18:30 11/23/20 19:59 Acetaminophen 325 Mg Tablet PO 650 mg Q6H PRN Administration Pain, Mild (Pain Scale 1-3) Albuterol/Ipratropium 3 ml 11/21/20 20:00 11/24/20 10:58 Albuterol/Iprat 2.5/0.5mg 3 Ml Ampul.Neb INHALE 3 ml RQ4H WHILE AWAKE CAROL Administration Atorvastatin Calcium 80 mg 11/22/20 09:00 11/24/20 08:04 Atorvastatin Calcium 80 Mg Tablet PO 80 mg DAILY CAROL Administration Carvedilol 3.125 mg 11/23/20 21:00 11/24/20 08:04 Carvedilol 3.125 Mg Tablet PO 3.125 mg BID CAROL Administration Protocol Docusate Sodium 100 mg 11/21/20 18:30 Docusate Sodium 100 Mg Capsule PO DAILY PRN Constipation Fluticasone Propionate 1 spray 11/22/20 09:00 11/24/20 08:06 Fluticasone Propionate Nasal 16 Gm [place] NOSTRIL-B 1 spray DAILY CAROL Administration Furosemide 20 mg 11/22/20 09:00 11/24/20 08:04 Furosemide 20 Mg Tablet PO 20 mg DAILY CAROL Administration Protocol Guaifenesin/Dextromethorphan 10 ml 08/15/21 18:30 Guaifenesin Dm 200/20/10 Ml 10 Ml Syrup PO Q6H PRN Cough Heparin Sodium (Porcine) 5,000 unit 11/21/20 20:00 11/24/20 08:04 Heparin Sodium,Porcine 5,000 Unit/Ml Vial SUBCUT 5,000 unit Q12H CAROL Administration Piperacillin Sod/Tazobactam 50 mls @ 100 mls/hr 11/21/20 19:00 11/24/20 06:32 Sod 3.375 gm/ Sodium Chloride IV Infused Q6H CAROL Infusion Loratadine 10 mg 11/22/20 09:00 11/24/20 08:04 Loratadine 10 Mg Tablet PO 10 mg DAILY CAROL Administration Losartan Potassium 25 mg 11/22/20 09:00 11/24/20 08:04 Losartan Potassium 25 Mg Tablet PO 25 mg DAILY CAROL Administration Protocol Magnesium Oxide 400 mg 11/22/20 09:00 11/24/20 08:04 Magnesium Oxide 400 Mg Tablet PO 400 mg DAILY CAROL Administration Multi-Ingred Cream/Lotion/Oil/Oint 1 appl 11/23/20 21:00 11/24/20 08:06 Mineral Oil/Petrolatum,White 106 Gm Tube TOPICAL 1 appl BID CAROL Administration Ondansetron HCl 4 mg 11/21/20 18:30 Ondansetron Hcl 4 Mg/2 Ml Vial IVPUSH Q8H PRN Nausea and Vomiting Sodium Chloride 3 ml 11/22/20 00:00 11/24/20 08:05 0.9 % Sodium Chloride Flush 3 Ml Syringe IVFLUSH 3 ml QSHIFT CAROL Administration Labs CBC & Chem 7: 11/24/20 06:25 11/24/20 06:25 Labs: Laboratory Results - last 24 hr 11/24/20 11/24/20 06:25 06:25 MCV 95.7 MCH 29.4 MCHC 30.7 L RDW 14.2 Plt Count 160 MPV 9.7 Absolute Nucleated RBC 0.000 Nucleated RBC % (auto) 0.0 Anion Gap 14 Estim Creat Clear Calc 50.7 Estimated GFR > 60 Random Glucose 85 Calcium 8.6 Microbiology Microbiology Results: Microbiology 11/21/20 12:35 Blood Culture - Preliminary Blood - Venous No growth after 48 hours. 11/21/20 12:35 Blood Culture - Preliminary Blood - Venous No growth after 48 hours. Assessment and Plan (1) Pneumonia: Status: Acute Assessment and Plan: This is a 70 yo F CAD - s/p MA last month, CHF, COPD, HTN who presented to the hospital with shortness of breath. Her CT scan is concerning for lung Ca and probable post-obstructive pneumonia. She is admitted for further work up. 1. Pneumonia, likely post-obstructive IV zosyn - day #3 f/u cultures, blood cx negative 2. Lung mass likely cancerous bronch tomorrow -- intermediate 3. Chronic Resp. Failure reports she has been on O2 at home (2L) continue the same 4. Thrombocytopenia resolved 5. HFrEF, chronic echo done, EF low 40s continue baseline meds 6. HLD statin 7. HTN continue current regime Full Code DVT pptx, subcut. heparin Quality Stroke Does the patient have a stroke diagnosis?: No VTE Prior VTE?: No VTE Risk Level:: Medical - moderate - high VTE Device Contraindication: N/A - Device Ordered VTE Drug Contraindication: N/A - Med Ordered
[2020-11-25] VITALS (19 sets, daily range): BP systolic 92–149; BP diastolic 37–64; PULSE 82–100; RESP 16–22; TEMP 36.3–37; O2SAT 90–98
[2020-11-25] MEDS: Piperacillin Sodium/Tazobactam 3.375 GM in 0.9 % Sodium Chloride 50 ML IV ×4 (01:26→19:28)
[2020-11-25 07:14] LABS: Magnesium 1.9 mg/dL (1.6-2.6); Phosphorus 3.7 mg/dL (2.7-4.5)
--- NOTE | 2020-11-25 07:21 | PC.NURSE ---
Per kaitlin Russell to proceed with case - patient received scheduled heparin dose 11/24/20 at 2116
--- NOTE | 2020-11-25 07:24 | MHC.SHP ---
Pre-Procedural Eval Section A Date of Service: 11/25/20 Section B Chief Complaint: shortness of breath Allergies: Allergies Allergy/AdvReac Type Severity Reaction Status Date / Time red dye Allergy Hives Verified 11/25/20 06:35 lisinopril AdvReac Cough Verified 11/21/20 11:34 hydrofluoroalkane Allergy tongue Uncoded 11/25/20 06:35 swelling Plan I have reviewed the history and physical and performed a pertinent physical examination on my patient. No changes have occurred unless specified.
[2020-11-25] MEDS: carvediloL 3.125 MG TABLET PO ×2 (10:33→20:18)
[2020-11-25] MEDS: Loratadine 10 MG TABLET PO (10:33)
[2020-11-25] MEDS: Atorvastatin Calcium 80 MG TABLET PO (10:33)
[2020-11-25] MEDS: Furosemide 20 MG TABLET PO (10:33)
[2020-11-25] MEDS: Mineral Oil/Petrolatum,White 106 GM Tube 1 APPL TOPICAL ×2 (10:34→20:18)
[2020-11-25] MEDS: Fluticasone Propionate Nasal 16 GM SPRAY 1 SPRAY NOSTRIL-B (10:34)
[2020-11-25] MEDS: Magnesium Oxide 400 MG TABLET PO (10:34)
[2020-11-25] MEDS: 0.9 % Sodium Chloride Flush 3 ML SYRINGE IVFLUSH ×2 (10:35→15:30)
[2020-11-25] MEDS: Losartan Potassium 25 MG TABLET PO (10:35)
--- NOTE | 2020-11-25 11:31 | MHC.CM.PN ---
CM met with Patient at bedside to discuss dc planning- home with VNA VS STR, pending PT eval. If PT recommends home with services, Patient wants [facility] and if PT recommends STR, Patient hopes to go to a SNF in the [facility]. All referrals have been made and CM will follow for dc planning.
--- NOTE | 2020-11-25 11:42 | P.PNIM_ITS ---
Subjective Subjective Date of Service: 11/25/20 Interval History: seen and examined this AM post bronch no complaints d/w her re: that she may need str, Review of Systems General - no fevers or chills Cardiovascular - no chest pain Respiratory - +cough Abdominal- no abdominal pain, nausea, vomiting, diarrhea Physical Exam Vital Signs: Vital Signs: Last Vital Signs Temp 97.6 F 11/25/20 10:48 Pulse 97 11/25/20 10:48 Resp 18 11/25/20 10:48 BP 123/50 L 11/25/20 10:48 Pulse Ox 95 11/25/20 10:48 Oxygen Flow Rate 2 11/21/20 11:34 Body Mass Index 23.2 Const: Other: General - no acute distress, appears comfortable Cardiovascular - regular rate and rhythm, S1-S2 Lungs - normal respiratory effort, clear to auscultation bilaterally, no wheezing Abdomen - soft, nontender, no rebound or guarding Extremities - no edema bilaterally Neuro - awake and alert, no focal deficits Objective Data Current Medications Generic Name Dose Route Start Last Admin Trade Name Eric PRN Reason Stop Dose Admin Acetaminophen 650 mg 11/21/20 18:30 11/23/20 19:59 Acetaminophen 325 Mg Tablet PO 650 mg Q6H PRN Administration Pain, Mild (Pain Scale 1-3) Albuterol/Ipratropium 3 ml 11/21/20 20:00 11/25/20 08:12 Albuterol/Iprat 2.5/0.5mg 3 Ml Ampul.Neb INHALE Not Given RQ4H WHILE AWAKE CAROL Atorvastatin Calcium 80 mg 11/22/20 09:00 11/25/20 10:33 Atorvastatin Calcium 80 Mg Tablet PO 80 mg DAILY CAROL Administration Carvedilol 3.125 mg 11/23/20 21:00 11/25/20 10:33 Carvedilol 3.125 Mg Tablet PO 3.125 mg BID CAROL Administration Protocol Docusate Sodium 100 mg 11/21/20 18:30 Docusate Sodium 100 Mg Capsule PO DAILY PRN Constipation Fluticasone Propionate 1 spray 11/22/20 09:00 11/25/20 10:34 Fluticasone Propionate Nasal 16 Gm [place] NOSTRIL-B 1 spray DAILY CAROL Administration Furosemide 20 mg 11/22/20 09:00 11/25/20 10:33 Furosemide 20 Mg Tablet PO 20 mg DAILY CAROL Administration Protocol Guaifenesin/Dextromethorphan 10 ml 11/21/20 18:30 Guaifenesin Dm 200/20/10 Ml 10 Ml Syrup PO Q6H PRN Cough Heparin Sodium (Porcine) 5,000 unit 11/21/20 20:00 11/25/20 09:57 Heparin Sodium,Porcine 5,000 Unit/Ml Vial SUBCUT Not Given Q12H CAROL Piperacillin Sod/Tazobactam 50 mls @ 100 mls/hr 11/21/20 19:00 11/25/20 06:35 Sod 3.375 gm/ Sodium Chloride IV Infused Q6H CAROL Infusion Loratadine 10 mg 11/22/20 09:00 11/25/20 10:33 Loratadine 10 Mg Tablet PO 10 mg DAILY CAROL Administration Losartan Potassium 25 mg 11/22/20 09:00 11/25/20 10:35 Losartan Potassium 25 Mg Tablet PO 25 mg DAILY CAROL Administration Protocol Magnesium Oxide 400 mg 11/22/20 09:00 11/25/20 10:34 Magnesium Oxide 400 Mg Tablet PO 400 mg DAILY CAROL Administration Multi-Ingred Cream/Lotion/Oil/Oint 1 appl 11/23/20 21:00 11/25/20 10:34 Mineral Oil/Petrolatum,White 106 Gm Tube TOPICAL 1 appl BID CAROL Administration Ondansetron HCl 4 mg 11/21/20 18:30 Ondansetron Hcl 4 Mg/2 Ml Vial IVPUSH Q8H PRN Nausea and Vomiting Sodium Chloride 3 ml 11/22/20 00:00 11/25/20 10:35 0.9 % Sodium Chloride Flush 3 Ml Syringe IVFLUSH 3 ml QSHIFT CAROL Administration Labs CBC & Chem 7: 11/24/20 06:25 11/24/20 06:25 Labs: Laboratory Results - last 24 hr 11/25/20 05:32 Phosphorus 3.7 Magnesium 1.9 Assessment and Plan (1) Lung mass: Status: Acute Assessment and Plan: This is a 70 yo F CAD - s/p [place] last month, CHF, COPD, HTN who presented to the hospital with shortness of breath. Her CT scan is concerning for lung Ca and probable post-obstructive pneumonia. She is admitted for further work up. 1. Pneumonia, likely post-obstructive IV zosyn - day #4 f/u cultures, blood cx negative 2. Lung mass s/p bronch today 3. Chronic Resp. Failure reports she has been on O2 at home (2L) continue the same 4. Thrombocytopenia resolved 5. HFrEF, chronic echo done, EF low 40s continue baseline meds 6. HLD statin 7. HTN continue current regime 8. Generalized weakness PT eval -- home vs STR Full Code DVT pptx, subcut. heparin Quality Stroke Does the patient have a stroke diagnosis?: No VTE Prior VTE?: No VTE Risk Level:: Medical - moderate - high VTE Device Contraindication: N/A - Device Ordered VTE Drug Contraindication: N/A - Med Ordered
[2020-11-25] MEDS: Albuterol/Iprat 2.5/0.5MG 3 ML AMPUL.NEB INHALE ×3 (11:49→19:28)
--- NOTE | 2020-11-25 16:49 | PM.OP ---
Brief Operative Note Date of Service: 11/25/20 Pre-op diagnosis: lung mass, pneumonia Post-op diagnosis: other (Lung cancer) Procedure: bronchoscopy with biopsies,brushings and washings Implants: Surgeon: Junaid Stoddard MD Anesthesia: GLMA Was an Jig Boring Machine Operator For Metal used for this Procedure?: No Estimated blood loss (mL): 10 Pathology: other (Parisa biopsies, parisa brushings) Condition: stable Disposition: floor
[2020-11-26] VITALS (7 sets, daily range): BP systolic 99–110; BP diastolic 42–70; PULSE 85–97; RESP 18–20; TEMP 36.4–36.7; O2SAT 90–94
[2020-11-26] MEDS: Piperacillin Sodium/Tazobactam 3.375 GM in 0.9 % Sodium Chloride 50 ML IV ×2 (00:46→06:47)
[2020-11-26] MEDS: 0.9 % Sodium Chloride Flush 3 ML SYRINGE IVFLUSH ×2 (00:46→08:19)
[2020-11-26] MEDS: Albuterol/Iprat 2.5/0.5MG 3 ML AMPUL.NEB INHALE ×2 (07:34→12:04)
[2020-11-26] MEDS: Atorvastatin Calcium 80 MG TABLET PO (08:19)
[2020-11-26] MEDS: Loratadine 10 MG TABLET PO (08:20)
[2020-11-26] MEDS: Magnesium Oxide 400 MG TABLET PO (08:20)
[2020-11-26] MEDS: Mineral Oil/Petrolatum,White 106 GM Tube 1 APPL TOPICAL (08:22)
[2020-11-26] MEDS: Furosemide 20 MG TABLET PO (08:22)
[2020-11-26] MEDS: Fluticasone Propionate Nasal 16 GM SPRAY 1 SPRAY NOSTRIL-B (08:22)
[2020-11-26] MEDS: Losartan Potassium 25 MG TABLET PO (08:22)
[2020-11-26] MEDS: carvediloL 3.125 MG TABLET PO (08:23)
--- NOTE | 2020-11-26 09:51 | PM.PNPUL ---
Subjective Subjective Date of Service: 11/26/20 Interval history: The patient was seen on exam. I did speak to her about the concerning findings of potential cancer in the left upper lobe area. The patient also has lesions in the liver. At this point she is responding to the antibiotics. No organisms noted on bronchial washings which is reassuring. She can be switched to oral antibiotics and go home she is doing well from the other medical issues. Ultimately I will make an appointment next week for her to follow up in set up for PET scan and pulmonary function studies. She should continue antibiotics until that visit. The patient responds well to the oxygen and she continue to use it at home. Objective Data Labs CBC & Chem 7: 11/24/20 06:25 11/24/20 06:25 Microbiology Microbiology Results: Microbiology 11/25/20 08:33 Brushing - [place] Gram Stain - Final 11/25/20 08:33 Brushing - [place] Routine Culture - Preliminary No growth to date. 11/25/20 08:34 Washing - [place] Gram Stain - Final 11/21/20 12:35 Blood - Venous Blood Culture - Preliminary No growth after 48 hours. 11/21/20 12:35 Blood - Venous Blood Culture - Preliminary No growth after 48 hours. Review of Systems Review of Systems Yes all other systems are reviewed and are negative Cardiovascular: Reports as per HPI, Reports no additional cardiovascular complaints, Denies acrocyanosis, Denies cool extremities, Denies painful fingertips, Denies chest pain, Denies chest pain at rest, Denies diaphoresis, Denies syncope, Denies irregular heart rhythm, Denies claudication, Denies leg edema, Denies lightheadedness, Denies palpitations and Reports dyspnea Respiratory: Reports hemoptysis and Reports dyspnea Denies syncope Endocrine: Denies palpitations Physical Exam Vital Signs: Vital Signs: Last Vital Signs Temp 97.6 F 11/26/20 07:57 Pulse 97 11/26/20 08:23 Resp 20 11/26/20 07:57 BP 110/70 11/26/20 08:23 Pulse Ox 91 L 11/26/20 07:57 Oxygen Flow Rate 2 11/21/20 11:34 Body Mass Index 23.2 Const: General: alert Neck: Neck: Yes normal visual inspection, Yes full ROM and Yes no lymphadenopathy Chest: Chest palpation & inspection: normal inspection of the chest Resp: Auscultation: diminished lung sounds Cardio: Rate: regular rate Rhythm: regular rhythm Heart sounds: S1 normal heart sound present and S2 normal heart sound present GI: Palpation (GI): Soft to palpation and nontender Auscultation: normal bowel sounds Skin: General skin exam: rashes and/or lesions noted Procedures Date of Service Date of Service: 11/26/20 Assessment and Plan Assessment and plan (1) Pneumonia: Status: Acute (2) Lung mass: Status: Acute (3) Lung cancer: Status: Acute Assessment and Plan: The findings on the bronchoscopy are considered to be consistent with lung cancer. Which still waiting for the biopsies. In addition to that there appears to be enough obstruction of the airways to resulting in a postobstructive pneumonia which is likely occurring at this time. Recommendations: Change to p.o. antibiotics and complete a 14 day course Will follow-up next week with Pulmonary to set up for PET scan and PFTs Continue with oxygen supplementation to maintain a pulse ox above 90% Follow-up with Pulmonary next week Time Spent With Patient Time: Total time spent is greater than 50% in coordination of care (as documented) at patient's floor/unit and/or counseling patient: Time with patient: 25 - 35 minutes Progress Note: Quality Stroke Does the patient have a stroke diagnosis?: No
--- NOTE | 2020-11-26 11:25 | PM.DS ---
DS: Providers Provider Date of Service: 11/26/20 Date of admission: 11/21/20 16:42 Primary care physician: Desiree Richardson MD Consults: 11/21/20 18:30 Consult to Pulmonology Routine Consulting Provider: Brittany Ceron Reason for consultation: Respiratory failure, new lung mass Has provider been notified: No 11/22/20 14:35 Consult to Cardiology Routine Consulting Provider: [facility] [place] Cardiovascular Services Reason for consultation: Pre-op eval for Bronch DS: Diagnosis Discharge Diagnosis (1) Pneumonia: Status: Acute (2) Lung mass: Status: Acute (3) Lung cancer: Status: Acute DS: Medications Discharge Medications Home Medications: Home Medications Medication Instructions Recorded Confirmed Caltrate 600 plus D 1 tab PO DAILY 11/21/20 11/21/20 aspirin 81 mg tablet 81 mg PO DAILY 11/21/20 11/21/20 atorvastatin 80 mg tablet 80 mg PO DAILY 11/21/20 11/21/20 carvedilol 6.25 mg tablet 6.25 mg PO BID 11/21/20 11/21/20 fluticasone propionate 50 1 spray INTRANASAL DAILY 11/21/20 11/21/20 mcg/actuation nasal spray,suspension furosemide 20 mg tablet 20 mg PO DAILY 11/21/20 11/21/20 loratadine 10 mg tablet (Claritin) 10 mg PO DAILY 11/21/20 11/21/20 losartan 25 mg tablet 25 mg PO DAILY 11/21/20 11/21/20 magnesium 1 tab PO DAILY 11/21/20 11/21/20 Previous Rx's Medication Instructions Recorded amoxicillin 875 mg-potassium 1 tab PO BID #20 tab 11/26/20 clavulanate 125 mg tablet (Augmentin) DS: Summary Hospital Course Hospital Course: Final discharge diagnosis 1. Postobstructive pneumonia 2. Lung mass, suspected lung cancer 3. Chronic respiratory failure with hypoxia 4. Thrombocytopenia 5. Heart failure with reduced ejection fraction, chronic 6. HTN Patient was started on IV Zosyn and was admitted for further care for her pneumonia and lung mass. She ultimately underwent bronchoscopy with biopsy and washings. With 4 days of IV Zosyn in the hospital, her respiratory symptoms did improve. Her bronchial washings did not show any organisms. She will be transitioned to oral Augmentin for 10 days for total 14 days of antibiotics per Pulmonary recommendations. In regards to her lung mass, a biopsies were taken and she will be following up with pulmonary clinic next week. Time Spent with Patient Time attestation: Total time spent providing and/or coordinating discharge services: Discharge coordination time: Greater than 30 minutes Quality: Stroke Does the patient have a stroke diagnosis?: No Physical Exam Vital Signs: Vital Signs: Last Vital Signs Temp 97.6 F 11/26/20 07:57 Pulse 97 11/26/20 08:23 Resp 20 11/26/20 07:57 BP 110/70 11/26/20 08:23 Pulse Ox 91 L 11/26/20 07:57 Oxygen Flow Rate 2 11/21/20 11:34 Body Mass Index 23.2 Const: Other: General - no acute distress, appears comfortable Cardiovascular - regular rate and rhythm, S1-S2 Lungs - dim, no distress Abdomen - soft, nontender, no rebound or guarding Extremities - no edema bilaterally Neuro - awake and alert, no focal deficits DS: Data Data Completed and Pending Pending studies at discharge: Pending at discharge 11/25/20 08:34 Cytology [PTH] Stat 11/25/20 08:35 Surgical [PTH] Stat Labs on day of discharge: Preliminary micro results at discharge 11/25/20 08:34 Routine Culture - Preliminary Washing - Wash Benji Culture in progress. 11/25/20 08:33 Routine Culture - Preliminary Brushing - War Benji No growth to date. 11/21/20 12:35 Blood Culture - Preliminary Blood - Venous No growth after 48 hours. 11/21/20 12:35 Blood Culture - Preliminary Blood - Venous No growth after 48 hours. Discharge Plan Discharge Patient Disposition: Home Health Service Discharge Diagnosis: Lung mass Pneumonia Referrals: Desiree Richardson MD [Primary Care Provider] - 1 Week Discharge Medications: New amoxicillin-pot clavulanate [Augmentin] 875-125 mg tablet 1 tab PO BID Qty: 20 RF: 0 Continued atorvastatin 80 mg Tablet 80 mg PO DAILY RF: 0 carvedilol 6.25 mg Tablet 6.25 mg PO BID RF: 0 losartan 25 mg Tablet 25 mg PO DAILY RF: 0 aspirin 81 mg Tablet 81 mg PO DAILY RF: 0 furosemide 20 mg Tablet 20 mg PO DAILY RF: 0 fluticasone propionate 50 mcg/actuation [place],Suspension 1 spray INTRANASAL DAILY RF: 0 loratadine [Claritin] 10 mg Tablet 10 mg PO DAILY RF: 0 Caltrate 600 plus D tablet 1 tab PO DAILY RF: 0 magnesium 1 tab PO DAILY RF: 0 Discharge Orders: Discharge Order (Routine); Ordered 11/26/20 Ordered By: Delonte Pepper Diet: advance to usual diet Activity on Discharge: As tolerated Stand Alone Forms: Patient Portal Discharge page Care Plan Goals: To stay healthy and out of the hospital. Health Concerns: Lung Mass Pneumonia Plan of Treatment: Complete 10 more days of antibiotics Follow up with Dr. Stoddard in pulmonary next week Assessment: 70 yo admitted for lung mass and post obstructive pneumonia. Underwent bronch with bipsoes. Will be d/c on antibiotics and f/u with pulmonary next week for management of her suspected lung Ca.
--- NOTE | 2020-11-26 11:45 | MHC.CM.PN ---
Patient has been medically cleared for dc to home today/with services. A referral had been made to [facility], who has been notified of today's dc. Second IMM addressed with Patient today, providing her with the original and placing a copy on the chart.
--- NOTE | 2020-11-26 12:16 | HO.POSTANES ---
Post Anesthesia Evaluation Post Anesthesia Evaluation Vital Signs: Vital Signs Temp Pulse Resp BP Pulse Ox 11/26/20 12:04 92 11/26/20 11:40 98.0 F 95 19 99/45 L 90 L 11/26/20 08:23 97 110/70 11/26/20 08:22 97 110/70 11/26/20 07:57 97.6 F 97 20 105/52 L 91 L 11/26/20 07:34 96 11/26/20 03:33 97.8 F 85 18 100/42 L 94 Anesthesia: General Endotracheal-GETA Mental Status: Awake Pain Control: Satisfactory Nausea/Vomiting: None Hydration: Adequate Anesthesia-Related Issues: No Anes. Related Issues
--- NOTE | 2020-11-26 20:20 | OP_ITS ---
SURGEON: Junaid Stoddard MD INDICATIONS: Recurrent pneumonia and question lung mass. PREOPERATIVE DIAGNOSIS: POSTOPERATIVE DIAGNOSIS: PROCEDURE PERFORMED: Bronchoscopy with endobronchial biopsies, brushings and washings. ESTIMATED BLOOD LOSS: COMPLICATIONS: ANESTHESIA: LMA anesthesia was present throughout the procedure. ASSISTANTS: SPECIMENS: PREOPERATIVE DIAGNOSES: Lung mass, pneumonia. POSTOPERATIVE DIAGNOSES: Lung mass, pneumonia like consistent with cancer. DESCRIPTION OF PROCEDURE: After the patient was adequately sedated, the flexible digital bronchoscope was inserted via LMA to the level of the vocal cords. The vocal cords moved symmetrically to the midline without any lesions or masses. After instilling lidocaine about 9 mL of 2%, the bronchoscope was navigated past the vocal cords to the level of the trachea. Tracheal mucosa appeared to be normal, a little tortuous, but no endotracheal lesions. The patient did have some mucoid secretions noted, but mild to moderate. After instilling additional lidocaine, the bronchoscope was navigated to the entire tracheobronchial tree that was examined up to the subsegmental level. Once we get to the distal part of the left mainstem bronchus takeoff, the mucosa was abnormal primarily at the level of the left upper lobe appeared to be with neovascularization, irregular, bumpy and also resulting in obstruction of the airways primarily in the lingula and the anterior segment of the left upper lobe. The findings are concerning for bronchogenic carcinoma. Please refer to the pictures found in the brief op note. The bronchoscope again was navigated throughout the other airways and no other lesions noted. Using a brush, we first brushed for microbiology and subsequently brushed the left upper lobe, then for cytology. Both brushes were sent to the appropriate location. Next, using forceps, endobronchial biopsies were collected from the left upper lobe and placed in formalin. The patient had bronchial washings, also collected from the left upper lobe and sent for both microbiology and for cytology. The patient did have some bleeding. Initially, we used 1 ampule of the 1:10,000 epinephrine, mixed in with 9 mL of iced saline and at the end of the procedure, she was still oozing a little bit more, so we gave another ampule of the 1:10,000 mixed with 9 mL of iced saline. At the end of the procedure, reached good hemostasis without any evidence of any active bleeding. The bronchoscope was then removed. The total endoscopic time approximately 20 minutes. The patient tolerated the procedure well. Vital signs were stable throughout the procedure. No evidence of bleeding at the end of the procedure. INTERPRETATION: 1. Endobronchial biopsies from the left upper lobe. 2. Brushings x2, one for cytology and one for microbiology from the left upper lobe. 3. Brushings from the left upper lobe. No apparent complications at the end of the procedure. MD LESTER Ceja/LUCI / [id number]
== END 2020-11-26 14:53 | disposition home health service (06) | DRG 180 ==
LOC: HO.ED 16:10 → HO.EDOVER 17:33 → HO.IMC 11-22 01:46
PROVIDERS: Hospitalist; Internal Medicine; Physician Assistant; Admitting Provider Physician Assistant Medical; Emergency Provider Emergency Medicine; PCP Internal Medicine; Visit Provider Family Medicine
PROC: 0BJ08ZZ Inspection of Tracheobronchial Tree, Via Natural or Artificial Opening Endoscopic (ICD-10-PCS; CPT 31622; principal; 2020-11-25 07:30)
DX: C34.12 Malignant neoplasm of upper lobe, left bronchus or lung (principal); J18.9 Pneumonia, unspecified organism; J44.0 Chronic obstructive pulmonary disease with (acute) lower respiratory infection; J96.11 Chronic respiratory failure with hypoxia; C78.7 Secondary malignant neoplasm of liver and intrahepatic bile duct; I50.22 Chronic systolic (congestive) heart failure; I25.10 Atherosclerotic heart disease of native coronary artery without angina pectoris; Z20.822 Contact with and (suspected) exposure to COVID-19; I25.2 Old myocardial infarction; I11.0 Hypertensive heart disease with heart failure; Z87.01 Personal history of pneumonia (recurrent); I25.5 Ischemic cardiomyopathy; D69.6 Thrombocytopenia, unspecified; Z99.81 Dependence on supplemental oxygen; E78.5 Hyperlipidemia, unspecified; Z87.891 Personal history of nicotine dependence; Z79.51 Long term (current) use of inhaled steroids; Z79.82 Long term (current) use of aspirin; Z79.899 Other long term (current) drug therapy
CPT/HCPCS: 36415; 71045; 71250; 80048; 80053; 81001; 83605; 83735; 83880; 84100; 84484; 85025; 85027; 85610; 85730; 87040; 87071; 87102; 87116; 87205; 87633; 87635; 88112; 88305; 88341; 88342; 93005; 93306; 94640; 96361; 96365; 96375; 97162; 99285; J0171; J0456; J0696; J1940; J2370; J2543; J2930; J3010

== ENCOUNTER 2020-12-03 14:33 | Outpatient (RCR) | payer MEDICARE, SELFPAY ==
--- NOTE | 2020-12-03 14:54 | PM.HEMONCCN ---
Subjective - Subjective Chief complaint: Lung cancer Patient: new to practice Consult date: 12/03/20 Primary Care Provider: Desiree Richardson MD Medical Summary: Diagnosis: Extensive stage small cell lung cancer 11/2020 She was seen in the ED on October 17 and diagnosed with pneumonia and NSTEMI, she was then transferred to [facility]. 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 She denies any recent weight loss.? She reports a known history of COPD for which she uses ProAir.? Cardiac MRI from 2019 reported to have LVEF of 42% and infarct in the inferior/inferolateral wall. In the same report, there was a description of cardiomyopathy with LVEF 25% in the history part. Echocardiogram from this hospitalization-LVEF 43%; inferior akinesis and reduced right ventricular function. Therefore diagnosed with underlying vascular disease, coronary disease and ischemic cardiomyopathy. HPI - Consult Narrative Reason for consult: Small cell lung cancer Narrative: Bere Kellogg is a 70 year old female referred for management of lung cancer. She was seen in the ED on October 17 and diagnosed with pneumonia and NSTEMI, she was then transferred to [facility]. 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 She denies any recent weight loss.? She reports a known history of COPD for which she uses ProAir.? After cardiac clearance, patient underwent bronchoscopy and biopsy which confirmed lung cancer. She is here accompanied by her for further recommendations. She has been using oxygen continuously by nasal cannula. She reports chronic cough that is occasionally productive of white sputum. She is finishing course of antibiotics. She denies weight loss or hemoptysis. No headache or dizziness. No GI complaints. No fever or chills. She lives at home with her and 2 sons. She is independent of most ADLs. She has visiting nurses services. Review of Systems - Constitutional Reports weakness, Denies anorexia, Denies weight loss - Eyes Denies blurry vision - Cardiovascular Denies chest pain - Respiratory Reports cough, Denies hemoptysis - Gastrointestinal Denies abdominal pain - Hematologic/Lymphatic Denies easy bleeding Oncology Screenings - ECOG Performance Status ECOG Performance Status: 2 [facility] Medical History: Medical History (Last Reviewed 12/03/20 @ 14:50 by Naya Perez RN) CAD (coronary artery disease) CHF (congestive heart failure) COPD (chronic obstructive pulmonary disease) High cholesterol History of non-ST elevation myocardial infarction (NSTEMI) Onset Date: ~10/2020 HTN (hypertension) Lung cancer Onset Date: ~2020 Personal history of nicotine dependence Small cell lung cancer Onset Date: ~2020 Small cell lung cancer, left upper lobe Onset Date: ~2020 Surgical History: Surgical History (Last Reviewed 12/03/20 @ 14:50 by Naya Perez RN) History of angioplasty Onset Date: ~10/2020 History of bronchoscopy Onset Date: ~11/2020 Social History: Social History (Last Reviewed 11/25/20 @ 08:08 by Debbie Oswald MD) Living Situation History: Household Members: Spouse Household Members Other:: and son Housing: House Are you a primary patient care provider to a significant other at home: No Do you presently have visiting nurse or other home services: No Alcohol History: Alcohol intake: unknown Alcohol History Details: Alcohol intake frequency: holiday/special occasion Tobacco History: Patient Tobacco Use Status: Former Tobacco user Tobacco use type: Cigarette Cigarette Packs Per Day: 1 Years Smoked: 60 Advance Directives: Advance Directives Date on File: 11/22/20 Occupation Assessmet: service: No Home Medications and Allergies Home Medications Medication Instructions Recorded Confirmed Type Caltrate 600 plus D 1 tab PO DAILY 11/21/20 11/21/20 History aspirin 81 mg tablet 81 mg PO DAILY 11/21/20 11/21/20 History atorvastatin 80 mg tablet 80 mg PO DAILY 11/21/20 11/21/20 History carvedilol 6.25 mg tablet 6.25 mg PO BID 11/21/20 11/21/20 History fluticasone propionate 50 1 spray INTRANASAL DAILY 11/21/20 11/21/20 History mcg/actuation nasal spray,suspension furosemide 20 mg tablet 20 mg PO DAILY 11/21/20 11/21/20 History loratadine 10 mg tablet (Claritin) 10 mg PO DAILY 11/21/20 11/21/20 History losartan 25 mg tablet 25 mg PO DAILY 11/21/20 11/21/20 History magnesium 1 tab PO DAILY 11/21/20 11/21/20 History Allergies Allergy/AdvReac Type Severity Reaction Status Date / Time red dye Allergy Hives Verified 12/03/20 14:51 lisinopril AdvReac Cough Verified 12/03/20 14:51 hydrofluoroalkane Allergy tongue Uncoded 11/25/20 06:35 swelling Physical Exam Vital signs: Vital Signs Temp Pulse Resp BP Pulse Ox 12/03/20 15:25 98.6 F 82 18 143/67 H 95 Intake and Output 12/03/20 12/03/20 12/03/20 06:59 14:59 22:59 Other: Weight 53.7 kg [place] Weight in Grams [id number] Patient Weight 12/04/20 06:59 Weight 53.7 kg - Constitutional Present: no acute distress, cooperative - Routine HEENT Exam Head: Present: normal inspection Eye: Present: EOMI - Routine Neck Exam Present: supple. Absent: lymphadenopathy - Routine Respiratory Exam Present: decreased breath sounds, wheezes. Absent: accessory muscle use - Routine Cardiovascular Exam Cardiovascular: Present: S1, S2 - Routine Abdominal Exam Present: soft. Absent: mass - Routine Extremities Exam Present: normal inspection, pulses intact - Routine Skin Exam Present: intact. Absent: cyanosis - Routine Neurological Exam Present: alert, oriented X3 Hem/Onc Consult Result - Labs Labs: Laboratory Tests 11/24/20 11/24/20 06:25 06:25 WBC 6.6 RBC 4.22 Hgb 12.4 Hct 40.4 MCV 95.7 MCH 29.4 Plt Count 160 Sodium 145 Potassium 4.5 BUN 16 Creatinine 0.74 Calcium 8.6 Assessment and Plan Patient Active problem list reviewed?: Yes (1) Small cell lung cancer Status: Acute Assessment and plan: 1. This is a 70-year-old woman with extensive stage small cell lung cancer involving left upper lobe diagnosed in November 2020. She underwent bronchoscopy and biopsy of left upper lobe mass/bronchial washings which revealed small cell lung cancer. Unfortunately, CT chest performed in August also revealed liver lesions consistent with liver metastasis. She therefore has stage IV disease and is not a candidate for surgery or concurrent chemoradiotherapy. She has not had a staging workup. I have ordered a PET-CT and CT of brain with contrast. She is claustrophobic and did not want to undergo MRI scan. She has underlying COPD and CAD. Her ejection fraction is about 45% on her most recent echocardiogram. Her overall health is rather frail and she appears older than her stated age. Chemotherapy with carboplatin/etoposide and atezolizumab with dose reductions will be tried in the first-line setting. I discussed MediPort placement for chemotherapy administration, she is willing, this is being scheduled with intervention Radiology. She will be scheduled for a chemotherapy teach appointment in the next few days. Both patient and verbalized understanding and agreed with above plan. Follow-up in 1 week. - Time Spent With Patient Time Spent with Patient (in minutes): 45
[2020-12-03 15:25] VITALS: BP 143/67; PULSE 82; RESP 18; TEMP 37; O2SAT 95
--- NOTE | 2020-12-03 15:28 | MHC.HEMONC ---
Patient seen for initial consult, CT brain and PET CT ordered. PET CT to be booked [place] at [facility] per . Orders given to edie for PA and to be scheduled. Port a-cath ordered, patient instructed to stop 81 asa and refrain from blood thinning medications until after the port insertion. follow 2 weeks.
--- NOTE | 2020-12-06 10:25 | MHC.HEMONCMA ---
Patient is scheduled for PET at [facility] for 12/16/2020 at 4:20pm. Patient is aware.
--- NOTE | 2020-12-07 10:44 | MHC.HEMONC ---
Spoke with pt and her son regarding upcoming appointment for port insertion on December at 1030. Pt instructed to stop taking ASA 3 days prior to port insertion.
--- NOTE | 2020-12-08 12:24 | HO.HEMONCPA ---
NO PA REQUIRED FOR EMEND, CARBOPLATIN,ETOPOSIDE, AND NEULASTA ONPRO. DRUGS ARE COVERED UNDER MEDICARE PART B(BUY & BILL) BENEFITS
--- NOTE | 2020-12-14 11:11 | MHC.HEMONC ---
called pt son as unable to reach pt or her at home. He informed me that she had in hospital due to her cancer.
== END 2020-12-15 13:35 | disposition home or self-care (01) ==
LOC: HO.ONC 14:33
PROVIDERS: PCP Internal Medicine; Referring Provider Hospitalist; Visit Provider Internal Medicine
DX: C34.12 Malignant neoplasm of upper lobe, left bronchus or lung (principal); K76.9 Liver disease, unspecified; J44.9 Chronic obstructive pulmonary disease, unspecified; I25.10 Atherosclerotic heart disease of native coronary artery without angina pectoris
CPT/HCPCS: 99204

== ENCOUNTER → 2020-12-06 10:35 | Outpatient (BNVA) | payer MEDICARE, SELFPAY | PROVIDERS: PCP Internal Medicine; Visit Provider Internal Medicine | DX: J44.9 Chronic obstructive pulmonary disease, unspecified (principal); R09.02 Hypoxemia; G47.00 Insomnia, unspecified; C34.12 Malignant neoplasm of upper lobe, left bronchus or lung | CPT/HCPCS: 99212 ==

== ENCOUNTER 2020-12-08 13:22 | Emergency (ER) | payer MEDICARE, SELFPAY ==
[2020-12-08] VITALS (12 sets, daily range): BP systolic 82–104; BP diastolic 34–60; PULSE 74–95; RESP 14–25; TEMP 36.7–37.1; O2SAT 86–97; BMI 23.4
--- NOTE | ~2020-12-08 | XR_ITS ---
EXAMINATION: XR CHEST CLINICAL INFORMATION: Small cell carcinoma left upper lobe. Rule out pneumonia. COMPARISON: November 21, 2020 TECHNIQUE: AP portable view of the chest was obtained. FINDINGS: Since previous study patient has developed right lower lobe disease as well as increased parenchymal density within the mid and upper left lung. No evidence of pulmonary edema. No pneumothorax is seen. I suspect a small right pleural effusion and left pleural effusion as well. XR/XR chest 1V IMPRESSION: Right lower lobe disease which may relate to atelectasis or pneumonitis. Increasing density throughout the left lung which may be related to atelectasis versus some parenchymal disease with large pleural effusion. There do appear to be some air bronchograms present and therefore I suspect at least some of the left lung density to represent airspace consolidation.
--- NOTE | ~2020-12-08 | CT_ITS ---
EXAMINATION: CT CHEST, ABDOMEN AND PELVIS WITH CONTRAST CLINICAL INFORMATION: Left upper lobe small cell cancer. Evaluate for metastatic disease COMPARISON: November 21, 2020 TECHNIQUE: Multidetector volumetric imaging was performed from the thoracic inlet through the pubic without either oral or intravenous contrast. Sagittal and coronal reformatted images were obtained on the technologist workstation. DLP: 336 mGy-cm. FINDINGS: Study is limited due to lack of oral and intravenous contrast. CHEST: Lungs: There has been progression in disease within the left lung with complete opacification of the lingula as well as significant increase in disease in the majority of the left upper lobe and left lower lobe with some narrowing/obstruction of the bronchi at second and third level branching. Above finding is suspicious for postobstructive pneumonitis. There is now also noted to be development of airspace disease within the right middle lobe and right lower lobe without definite bronchial narrowing or occlusion. It is difficult to try and separate out possible mass or lymphadenopathy from consolidated lung due to lack of IV contrast. There does appear to be a mass abutting the left lateral thoracic aorta extending down to the region of the aortopulmonic window measuring approximately 5.1 x 3.3 cm in size, similar to previous study. Just posterior to this there is either extension of the mass or adenopathy measuring approximately 1.9 cm in diameter. There are some changes of centrilobular emphysema present. Mediastinum: Heart normal size. Prominent coronary artery calcification is seen. No thoracic aortic aneurysm. There are some prominent calcified plaque seen involving the aortic arch which may be hemodynamically significant at the origin of the left subclavian artery. No significant pericardial effusion. There is precarinal and left paratracheal lymphadenopathy present. Visualized thyroid unremarkable. Pleura: There appears to be a small left pleural effusion is difficult to separate out from possible lung consolidation. Chest Wall/Axilla: No lymphadenopathy appreciated. ABDOMEN/PELVIS: Liver, Gallbladder, Biliary Tree: There is question of some faint regions of diminished density most prominent within the right lobe segments 7 and 8 however with IV contrast cannot definitively say whether these are true lesions. Ultrasound would be of help in further evaluation if IV contrast cannot be administered. Liver is normal size. No intrahepatic bile duct dilatation is seen. There is cholelithiasis without evidence of acute cholecystitis. Pancreas: Unremarkable. Spleen: Unremarkable. Adrenal Glands: No adrenal gland is somewhat prominent but without definite nodules. Kidneys and Ureters: There are numerous bilateral cysts present some of which appear to be hyperdense cyst. As a 3 mm nonobstructing right renal calculus in the upper pole. Ureters appear unremarkable. Bladder: Decompressed Gastrointestinal Tract: No dilated loops of large or small bowel. No free air or free fluid identified. There is diverticular disease of the sigmoid colon. No definite pericolonic fat streaking is seen. The appendix appears unremarkable. Abdominal Wall: No hernia is demonstrated. Lymph Nodes: No lymphadenopathy appreciated. Vascular: There is severe aortoiliac calcified plaque present with question hemodynamically significant stenoses involving the visceral vessels. Iliac arteries appear to have hemodynamically significant calcified plaque bilaterally. There is a 2.7 cm infrarenal abdominal aortic aneurysm. Pelvic Viscera: Pessary is seen in place. No suspicious mass. Osseous Structures: No suspicious destructive bony lesions identified. There is multilevel degenerative disc disease seen. There is mild scoliosis of the thoracic spine convex right. CT/CT abdomen pelvis wo con IMPRESSION: Limitation of study related to no oral or IV contrast. Significant progression in airspace disease within both right and left lungs with some narrowing and obstruction of left lung bronchi. The mediastinal lymphadenopathy and mass again evident. No evidence of metastatic disease to the abdomen or pelvis other than for question faint regions of diminished density within the liver for which ultrasound would be of help in further evaluation to see if these are true findings. Bilateral renal cysts some of which appear to be hyperdense cysts. Severe vascular disease with prominent calcified plaque as described.
--- NOTE | 2020-12-08 13:55 | ECG_ITS ---
Test Reason : SOB Blood Pressure : / mmHG Vent. Rate : 079 BPM Atrial Rate : 079 BPM P-R Int : 124 ms QRS Dur : 080 ms QT Int : 368 ms P-R-T Axes : 067 079 -13 degrees QTc Int : 421 ms Normal sinus rhythm Possible Left atrial enlargement ST & T wave abnormality, consider anterior ischemia Abnormal ECG When compared with ECG of 21-NOV-2020 13:42, Inverted T waves have replaced nonspecific T wave abnormality in Inferior leads T wave inversion no longer evident in Lateral leads Referred By: Emilio Johnson Electronically Signed By:FRITZ SCALES
--- NOTE | 2020-12-08 14:01 | ED.SOB ---
HPI - SOB/Dyspnea General Chief Complaint: Dyspnea Stated Complaint: DIFFICULTY BREATHING Time Seen by Provider: 12/08/20 13:33 Source: patient Mode of arrival: ambulatory Limitations: no limitations History of Present Illness HPI Narrative: 70-year-old female who presents emergency department for evaluation shortness of breath, hypoxia, decreased oral intake and diarrhea times 2-3 days. 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 Patient was initially treated with [facility] and she is currently taking amoxicillin her pneumonia. Patient was also seen on 10/17/2020 for an NSTEMI and congestive heart failure with an EF of 43% with inferior wall hypokinesis. According to her son, Héctor, since being discharged from the hospital recently , the patient has not been doing well. She has been weak and short of breath. The symptoms got worse over the past 2-3 days. Patient states that she has coughing up light yellow sputum with no blood in the sputum. She is also complaining of chest pain and abdominal pain. She points to her mid sternum when asked to localize chest pain. She describes the chest pain as a sharp, intermittent pain which does not change with coughing or breathing. She also points to her epigastric area when asked to localize to abdominal pain. This is a constant, sharp pain which is 5/10 at its worst. Patient states that she has had constant diarrhea for 2-3 days, the diarrhea is brown with no blood in the diarrhea. She has visiting nursing care and was seen today by a physical therapist who found that her O2 saturation was 70% on room air. An ambulance was called and the paramedics place the patient on 2 L via nasal cannula with only minimal improvement of her O2 saturation. Here in the emergency department she was placed on a 100% non-rebreather mask with an O2 saturation of 92%. Related Data Home Medications Medication Instructions Recorded Confirmed atorvastatin 80 mg tablet 80 mg PO DAILY 11/21/20 12/08/20 fluticasone propionate 50 1 spray INTRANASAL DAILY 11/21/20 12/08/20 mcg/actuation nasal spray,suspension loratadine 10 mg tablet (Claritin) 10 mg PO DAILY 11/21/20 12/08/20 losartan 25 mg tablet 25 mg PO DAILY 11/21/20 12/08/20 albuterol sulfate 90 mcg/actuation 2 puff INHALATION Q4-6H PRN 12/08/20 12/08/20 aerosol inhaler amoxicillin 875 mg-potassium 1 tab PO BID 12/08/20 12/08/20 clavulanate 125 mg tablet aspirin 81 mg tablet,delayed 81 mg PO DAILY 12/08/20 12/08/20 release calcium carbonate 600 mg (1,500 1 tab PO DAILY 12/08/20 12/08/20 mg)-vitamin D3 200 unit tablet carvedilol 12.5 mg tablet 1 tab PO BID 12/08/20 12/08/20 furosemide 40 mg tablet 1 tab PO DAILY 12/08/20 12/08/20 magnesium oxide 400 mg PO DAILY 12/08/20 12/08/20 omeprazole 20 mg capsule,delayed 1 cap PO DAILY@0630 12/08/20 12/08/20 release tiotropium bromide 2.5 2 puff INHALATION DAILY 12/08/20 12/08/20 mcg/actuation mist for inhalation (Spiriva Respimat) Allergies Allergy/AdvReac Type Severity Reaction Status Date / Time red dye Allergy Hives Verified 12/06/20 10:45 lisinopril AdvReac Cough Verified 12/06/20 10:45 hydrofluoroalkane Allergy tongue Uncoded 11/25/20 06:35 swelling Review of Systems Review of Systems: Yes all other systems are reviewed and are negative PMFSH Past Medical History Medical History Acute insomnia Atherosclerotic cardiovascular disease CAD (coronary artery disease) CHF (congestive heart failure) COPD (chronic obstructive pulmonary disease) COPD (chronic obstructive pulmonary disease) High cholesterol History of non-ST elevation myocardial infarction (NSTEMI) (~10/2020) HTN (hypertension) Hypoxemia Ischemic cardiomyopathy Lung cancer (~2020) Lung mass Personal history of nicotine dependence Pneumonia (~10/2020) Preoperative cardiovascular examination Small cell lung cancer (~2020) Small cell lung cancer, left upper lobe (~2020) Surgical History History of angioplasty (~10/2020) History of bronchoscopy (~11/2020) Social History Social History Household Members: Spouse Household Members Other:: and son Housing: House Are you a primary home care manager to a significant other at home: No Do you presently have visiting nurse or other home services: No Alcohol intake: never Patient Tobacco Use Status: Former Tobacco user Tobacco use type: Cigarette Cigarette Packs Per Day: 1 Years Smoked: 60 Use of substances other than those prescribed or required for medical reasons: No Advance Directives: Yes Advance Directives on File: Yes Advance Directives Date on File: 11/22/20 service: No Physical Exam Vital Signs: Vital Signs: Last Vital Signs Temp 98.8 F 12/08/20 16:58 Pulse 77 12/08/20 18:13 Resp 17 12/08/20 18:13 BP 101/42 L 12/08/20 18:13 Pulse Ox 86 L 12/08/20 18:13 Oxygen Flow Rate 12 12/08/20 13:42 Body Mass Index 23.4 Const: Other: Very pleasant and cooperative female, appears tachypneic but is able to answer all questions appropriately, very pale HENMT: Head: Yes normal to inspection, Yes normocephalic and Yes atraumatic Ears: external ears normal General nose exam: Normal external nose present Face and sinus: Yes normal facial exam Mouth: Normal oral and palatal mucosa present Throat: Yes posterior oropharynx normal Eyes: General: appearance normal, both eyes and all related structures Pupils: Equal, round and reactive pupils present Neck: Neck: Yes normal visual inspection, Yes no lymphadenopathy, Yes trachea midline and Yes supple Chest: Chest palpation & inspection: normal inspection of the chest and tenderness sternum (Moderate) Resp: Effort & Inspection: normal respiratory effort and able to speak in complete sentences Auscultation: clear to auscultation bilaterally Cardio: Rate: regular rate Rhythm: regular rhythm Heart sounds: S1 normal heart sound present, S2 normal heart sound present and no murmurs GI: Inspection: Yes normal to inspection Palpation (GI): Soft to palpation, Tenderness to palpation present (GI) in the epigastrum (Moderate) and no guarding Auscultation: normal bowel sounds Rectal Exam - Female: normal sphincter tone, Abnormal stool present (Loose, brown), heme negative stool and other : General: Yes no CVA tenderness Back/Spine/Pelvis: Back: no CVA tenderness Skin: Other: Very pale General skin exam: no rashes or lesions noted Neuro: Cranial nerves: Yes CN's II-XII intact bilaterally and Yes Equal, round and reactive pupils present Cognition (Neuro): normal cognition Motor exam (neuro): 5/5 motor strength present throughout Extrem: General: Yes normal to inspection Psych: Appearance: grossly normal Speech and movement: Normal speech and movement present Affect: normal affect Attitude: cooperative Thought process: Normal thought process present Thought content: Normal thought content present Course Course Course Narrative: 70-year-old female with a history of COPD O2 dependent with recent postobstructive pneumonia left upper lobe secondary to small-cell carcinoma diagnosed during her admission on 11/21/2020 who presents emergency department for 2-3 days of worsening shortness of breath, found to be hypoxic today by home visit physical therapy. On presentation, patient was hypoxic and required 100% oxygen via non-rebreather mask with O2 saturations in the 92% range. I did order a septic workup on the patient. Patient was ordered to get a normal saline fluid bolus of 30 cc per kg and Zosyn 4.[address] the patient on high-flow oxygen via nasal cannula and I will discuss the patient with the covering household refrigerator mechanic. 1528: The patient's laboratory evaluation revealed a normal CBC with a white count of 6500 and no anemia. Patient's coags revealed a slight elevation in her D-dimer 305. Comprehensive metabolic panel revealed an elevated bicarb of 45 an elevated BUN of 27 with a normal creatinine of 1.07. Patient's high sensitivity troponin was elevated at 164.5. Twelve EKG did not reveal any ST segment elevation but she does have inverted T-waves in leads 3, V1, V3 and V4. Patient did have an NSTEMI in October of 2020 and I will discuss this elevation with the covering dusting and brushing machine operator. Lactic acid was normal 1.2. I did discuss the patient with the covering household refrigerator mechanic, Dr. Singh. He believes that the patient is retaining CO2 and recommends that the patient be placed on BiPAP and high-flow oxygen via nasal cannula should be discontinued. The patient will be accepted into the intensive care unit. Patient's systolic blood pressure did drop below 90, she has not completed her fluid bolus and doctors temlinda recommended giving albumin 100 cc IV. He also recommended that we get a CT scan of the chest, abdomen pelvis without IV contrast to further evaluate the patient's pneumonia and evaluate the patient's abdomen for possible metastatic disease. 1603: I did discuss the patient's presentation with our covering dusting and brushing machine operator, Dr. Mcduffie. His impression was that the patient elevated troponin and EKG is most likely related to her hypoxia. Given her severe pneumonia and lung cancer, he felt that heparinization was not indicated at this point and I agree with this recommendation. The patient will be admitted to the intensive care unit for further treatment. 1713: Dr. Singh did evaluate the patient in the emergency department and he discuss the patient's presentation with the patient's rn medical inpatient services and with our oncologist. Given the patient's postobstructive pneumonia, both consultants felt that the patient would require emergent radiation therapy which cannot be provided at this institution. Dr. Singh did discuss the patient's presentation with the covering household refrigerator mechanic, Dr. Chase Cruz and the radiation oncologist, Dr. Olivares at [facility] and the patient will be transferred as an ED to the ICU transfer. The patient will be transferred by ALS on CPAP. 1814: The patient's repeat 3 hour high sensitive troponin was elevated at 291, this was a approximately 77% increase suggests the patient did have myocardial injury most likely secondary to hypoxia. I did discuss this with the household refrigerator mechanic at [facility], Dr. Cruz. MDM - SOB/Dyspnea Lab Data Result diagrams: 12/08/20 14:32 12/08/20 14:32 Labs: Lab Results 12/08/20 12/08/20 12/08/20 Range/Units 14:25 14:30 14:32 WBC 6.5 (4.8-10.8) X10*3/uL RBC 4.04 L (4.20-5.50) X10*6/uL Hgb 12.2 (12.0-16.0) g/dl Hct 39.7 (37-47) % MCV 98.3 H (80-98) fL MCH 30.2 (27.0-33.0) pg MCHC 30.7 L (31.0-35.0) g/dl RDW 14.6 (11.0-16.0) % Plt Count 153 L (160-400) X10*3/uL MPV 9.8 (9.4-12.3) fL Immature Gran % (Auto) 0.6 H (0.0-0.4) % Neut % (Auto) 72.9 (45-73) % Lymph % (Auto) 15.0 L (20-40) % [place] % (Auto) 10.4 (2-11) % Eos % (Auto) 0.6 (0-4) % Baso % (Auto) 0.5 (0-2) % Lymph # (Auto) 1.0 L (1.2-4.9) X10*3/uL [place] # (Auto) 0.7 (0.1-1.2) X10*3/uL Eos # (Auto) 0.0 (0.0-0.4) X10*3/uL Baso # (Auto) 0.0 (0.0-0.2) X10*3/uL Abs Immat Gran (auto) 0.04 H (0.00-0.03) X10*3/uL Absolute Neuts (auto) 4.7 (2.0-8.3) X10*3/uL Absolute Nucleated RBC 0.000 (0.0-0.012) X10*3/uL Nucleated RBC % (auto) 0.0 (0.0-0.2) /100WBC PT (9.9-13.0) SEC INR (0.9-1.1) APTT (24.1-38.0) SEC D-Dimer NG/ML O2 Saturation 91.0 % ABG pH at Pt Temp 7.33 L (7.35-7.45) ABG pCO2 at Pt Temp 104 H* (32-45) mmHg ABG pO2 at Pt Temp 74 L (83-108) mmHg ABG HCO3 55 H (22-26) mmol/L ABG Base Excess (Actual) 23.7 mmol/L Sodium (135-145) mmol/L Potassium (3.3-5.1) mmol/L Chloride (96-108) mmol/L Carbon Dioxide (22-29) mmol/L Anion Gap (12-20) BUN (9-16) mg/dL Creatinine (0.5-1.4) mg/dL Estim Creat Clear Calc Estimated GFR Random Glucose (60-115) mg/dL Lactic Acid (0.5-2.0) mmol/L Calcium (8.4-10.2) mg/dL Total Bilirubin (0.0-1.0) mg/dL Direct Bilirubin (0.0-0.5) mg/dL AST (5-31) U/L ALT (0-31) U/L Alkaline Phosphatase (39-117) U/L Troponin I High Sens (<3.5-17.0) ng/L Total Protein (6.5-8.0) g/dL Albumin (3.5-5.0) g/dL Urine Color Urine Appearance Urine pH (5.0-8.0) Ur Specific [place] (1.005-1.025) Urine Protein (NEG-TRACE) MG/DL Urine Glucose (UA) (NEG) MG/DL Urine Ketones (NEG) MG/DL Urine Blood (NEG) Urine Nitrite (NEG) Ur Leukocyte Esterase (NEG) Urine RBC (0) /HPF Urine WBC (0-4) /HPF Ur Squamous Epith Cells /LPF Urine Bacteria /LPF Urine Yeast /HPF COVID-19 (SUN) (Negative) COVID-19 Clin Com Blood Type O Positive Antibody Screen NEGATIVE 12/08/20 12/08/20 12/08/20 Range/Units 14:32 14:32 14:32 WBC (4.8-10.8) X10*3/uL RBC (4.20-5.50) X10*6/uL Hgb (12.0-16.0) g/dl Hct (37-47) % MCV (80-98) fL MCH (27.0-33.0) pg MCHC (31.0-35.0) g/dl RDW (11.0-16.0) % Plt Count (160-400) X10*3/uL MPV (9.4-12.3) fL Immature Gran % (Auto) (0.0-0.4) % Neut % (Auto) (45-73) % Lymph % (Auto) (20-40) % [place] % (Auto) (2-11) % Eos % (Auto) (0-4) % Baso % (Auto) (0-2) % Lymph # (Auto) (1.2-4.9) X10*3/uL [place] # (Auto) (0.1-1.2) X10*3/uL Eos # (Auto) (0.0-0.4) X10*3/uL Baso # (Auto) (0.0-0.2) X10*3/uL Abs Immat Gran (auto) (0.00-0.03) X10*3/uL Absolute Neuts (auto) (2.0-8.3) X10*3/uL Absolute Nucleated RBC (0.0-0.012) X10*3/uL Nucleated RBC % (auto) (0.0-0.2) /100WBC PT 11.4 (9.9-13.0) SEC INR 1.0 (0.9-1.1) APTT 28.6 (24.1-38.0) SEC D-Dimer 305 NG/ML O2 Saturation % ABG pH at Pt Temp (7.35-7.45) ABG pCO2 at Pt Temp (32-45) mmHg ABG pO2 at Pt Temp (83-108) mmHg ABG HCO3 (22-26) mmol/L ABG Base Excess (Actual) mmol/L Sodium 141 (135-145) mmol/L Potassium 5.1 (3.3-5.1) mmol/L Chloride 91 L (96-108) mmol/L Carbon Dioxide 45 H* (22-29) mmol/L Anion Gap 10 L (12-20) BUN 27 H D (9-16) mg/dL Creatinine 1.07 (0.5-1.4) mg/dL Estim Creat Clear Calc 35.2 Estimated GFR 50 Random Glucose 130 H D (60-115) mg/dL Lactic Acid 1.2 (0.5-2.0) mmol/L Calcium 10.2 D (8.4-10.2) mg/dL Total Bilirubin 0.4 (0.0-1.0) mg/dL Direct Bilirubin 0.2 (0.0-0.5) mg/dL AST 43 H D (5-31) U/L ALT 42 H (0-31) U/L Alkaline Phosphatase 84 D (39-117) U/L Troponin I High Sens (<3.5-17.0) ng/L Total Protein 6.3 L (6.5-8.0) g/dL Albumin 3.6 (3.5-5.0) g/dL Urine Color Urine Appearance Urine pH (5.0-8.0) Ur Specific [place] (1.005-1.025) Urine Protein (NEG-TRACE) MG/DL Urine Glucose (UA) (NEG) MG/DL Urine Ketones (NEG) MG/DL Urine Blood (NEG) Urine Nitrite (NEG) Ur Leukocyte Esterase (NEG) Urine RBC (0) /HPF Urine WBC (0-4) /HPF Ur Squamous Epith Cells /LPF Urine Bacteria /LPF Urine Yeast /HPF COVID-19 (SUN) (Negative) COVID-19 Clin Com Blood Type Antibody Screen 12/08/20 12/08/20 12/08/20 Range/Units 14:32 14:32 15:46 WBC (4.8-10.8) X10*3/uL RBC (4.20-5.50) X10*6/uL Hgb (12.0-16.0) g/dl Hct (37-47) % MCV (80-98) fL MCH (27.0-33.0) pg MCHC (31.0-35.0) g/dl RDW (11.0-16.0) % Plt Count (160-400) X10*3/uL MPV (9.4-12.3) fL Immature Gran % (Auto) (0.0-0.4) % Neut % (Auto) (45-73) % Lymph % (Auto) (20-40) % [place] % (Auto) (2-11) % Eos % (Auto) (0-4) % Baso % (Auto) (0-2) % Lymph # (Auto) (1.2-4.9) X10*3/uL [place] # (Auto) (0.1-1.2) X10*3/uL Eos # (Auto) (0.0-0.4) X10*3/uL Baso # (Auto) (0.0-0.2) X10*3/uL Abs Immat Gran (auto) (0.00-0.03) X10*3/uL Absolute Neuts (auto) (2.0-8.3) X10*3/uL Absolute Nucleated RBC (0.0-0.012) X10*3/uL Nucleated RBC % (auto) (0.0-0.2) /100WBC PT (9.9-13.0) SEC INR (0.9-1.1) APTT (24.1-38.0) SEC D-Dimer NG/ML O2 Saturation % ABG pH at Pt Temp (7.35-7.45) ABG pCO2 at Pt Temp (32-45) mmHg ABG pO2 at Pt Temp (83-108) mmHg ABG HCO3 (22-26) mmol/L ABG Base Excess (Actual) mmol/L Sodium (135-145) mmol/L Potassium (3.3-5.1) mmol/L Chloride (96-108) mmol/L Carbon Dioxide (22-29) mmol/L Anion Gap (12-20) BUN (9-16) mg/dL Creatinine (0.5-1.4) mg/dL Estim Creat Clear Calc Estimated GFR Random Glucose (60-115) mg/dL Lactic Acid (0.5-2.0) mmol/L Calcium (8.4-10.2) mg/dL Total Bilirubin (0.0-1.0) mg/dL Direct Bilirubin (0.0-0.5) mg/dL AST (5-31) U/L ALT (0-31) U/L Alkaline Phosphatase (39-117) U/L Troponin I High Sens 164.5 H* D (<3.5-17.0) ng/L Total Protein (6.5-8.0) g/dL Albumin (3.5-5.0) g/dL Urine Color YELLOW Urine Appearance HAZY Urine pH 5.5 (5.0-8.0) Ur Specific [place] >= 1.030 H (1.005-1.025) Urine Protein 1+ H (NEG-TRACE) MG/DL Urine Glucose (UA) NEG (NEG) MG/DL Urine Ketones 5 (NEG) MG/DL Urine Blood 2+ H (NEG) Urine Nitrite NEG (NEG) Ur Leukocyte Esterase TRACE H (NEG) Urine RBC 0-2 (0) /HPF Urine WBC 0-2 (0-4) /HPF Ur Squamous Epith Cells 3+ /LPF Urine Bacteria 2+ /LPF Urine Yeast 1+ /HPF COVID-19 (SUN) Negative (Negative) COVID-19 Clin Com See Note Blood Type Antibody Screen 12/08/20 Range/Units 17:33 WBC (4.8-10.8) X10*3/uL RBC (4.20-5.50) X10*6/uL Hgb (12.0-16.0) g/dl Hct (37-47) % MCV (80-98) fL MCH (27.0-33.0) pg MCHC (31.0-35.0) g/dl RDW (11.0-16.0) % Plt Count (160-400) X10*3/uL MPV (9.4-12.3) fL Immature Gran % (Auto) (0.0-0.4) % Neut % (Auto) (45-73) % Lymph % (Auto) (20-40) % [place] % (Auto) (2-11) % Eos % (Auto) (0-4) % Baso % (Auto) (0-2) % Lymph # (Auto) (1.2-4.9) X10*3/uL [place] # (Auto) (0.1-1.2) X10*3/uL Eos # (Auto) (0.0-0.4) X10*3/uL Baso # (Auto) (0.0-0.2) X10*3/uL Abs Immat Gran (auto) (0.00-0.03) X10*3/uL Absolute Neuts (auto) (2.0-8.3) X10*3/uL Absolute Nucleated RBC (0.0-0.012) X10*3/uL Nucleated RBC % (auto) (0.0-0.2) /100WBC PT (9.9-13.0) SEC INR (0.9-1.1) APTT (24.1-38.0) SEC D-Dimer NG/ML O2 Saturation % ABG pH at Pt Temp (7.35-7.45) ABG pCO2 at Pt Temp (32-45) mmHg ABG pO2 at Pt Temp (83-108) mmHg ABG HCO3 (22-26) mmol/L ABG Base Excess (Actual) mmol/L Sodium (135-145) mmol/L Potassium (3.3-5.1) mmol/L Chloride (96-108) mmol/L Carbon Dioxide (22-29) mmol/L Anion Gap (12-20) BUN (9-16) mg/dL Creatinine (0.5-1.4) mg/dL Estim Creat Clear Calc Estimated GFR Random Glucose (60-115) mg/dL Lactic Acid (0.5-2.0) mmol/L Calcium (8.4-10.2) mg/dL Total Bilirubin (0.0-1.0) mg/dL Direct Bilirubin (0.0-0.5) mg/dL AST (5-31) U/L ALT (0-31) U/L Alkaline Phosphatase (39-117) U/L Troponin I High Sens 291.1 H* D (<3.5-17.0) ng/L Total Protein (6.5-8.0) g/dL Albumin (3.5-5.0) g/dL Urine Color Urine Appearance Urine pH (5.0-8.0) Ur Specific [place] (1.005-1.025) Urine Protein (NEG-TRACE) MG/DL Urine Glucose (UA) (NEG) MG/DL Urine Ketones (NEG) MG/DL Urine Blood (NEG) Urine Nitrite (NEG) Ur Leukocyte Esterase (NEG) Urine RBC (0) /HPF Urine WBC (0-4) /HPF Ur Squamous Epith Cells /LPF Urine Bacteria /LPF Urine Yeast /HPF COVID-19 (SUN) (Negative) COVID-19 Clin Com Blood Type Antibody Screen ECG Data Interpretation: 14 13: Normal sinus rhythm rate of 79, normal ME, QRS and QTC intervals, inverted T-wave in lead 3, inverted T-waves in V1, V2 and be for, no ST segment elevation, no ST segment depression, no PACs, no PVCs. Compared to an EKG dated 11/21/2020, the T-wave abnormalities are new. Critical Care Time Critical Care Time Critical Care Time: Yes Total Critical Care Time: 55 Attestation: Critical Care: The patient was critically ill with a high probability of imminent or life threatening deterioration. I spent greater than 30 minutes of discontinuous time evaluating the patient,delivering critical care at the bedside, discussing and evaluating pertinent data with consultants. Critical care time does not include time spent performing separately billable procedures or teaching. Total time spent performing critical care was 55 minutes. Discharge Plan Discharge Clinical Impression: Small cell lung cancer, left upper lobe, Postobstructive pneumonia, Acute respiratory failure with hypoxia and hypercarbia Patient Disposition: [facility] Hospital Transfer Details: ED to ICU at [facility] Prescriptions: No Action atorvastatin 80 mg Tablet 80 mg PO DAILY RF: 0 losartan 25 mg Tablet 25 mg PO DAILY RF: 0 fluticasone propionate 50 mcg/actuation [place],Suspension 1 spray INTRANASAL DAILY RF: 0 loratadine [Claritin] 10 mg Tablet 10 mg PO DAILY RF: 0 omeprazole 20 mg capsule,delayed release(DR/EC) 1 cap PO DAILY@0630 RF: 0 albuterol sulfate 90 mcg/actuation HFA aerosol inhaler 2 puff inhalation Q4-6H PRN (Reason: Shortness Of Breath) RF: 0 Spiriva Respimat 2.5 mcg/actuation Mist 2 puff INHALATION DAILY RF: 0 furosemide 40 mg tablet 1 tab PO DAILY RF: 0 carvedilol 12.5 mg tablet 1 tab PO BID RF: 0 calcium carbonate-vitamin D3 [Calcium + D] 600 mg(1,500mg) -200 unit Tablet 1 tab PO DAILY RF: 0 aspirin 81 mg Tablet,Delayed Release (Dr/Ec) 81 mg PO DAILY RF: 0 amoxicillin-pot clavulanate 875-125 mg tablet 1 tab PO BID RF: 0 magnesium oxide 400 mg magnesium Tablet 400 mg PO DAILY RF: 0
[2020-12-08 14:38] LABS: MANUAL DIFF FLAG NO
[2020-12-08 14:39] LABS: ABG Base Excess 23.7 mmol/L; ABG HCO3 55 mmol/L (22-26); ABG pH 7.33 (7.35-7.45); ABG pO2 74 mmHg (83-108)
[2020-12-08 14:39] LABS: ABG Refer to POC result
[2020-12-08 14:42] LABS: Basophils Percent Auto 0.5 % (0-2); Eosinophils Percent Auto 0.6 % (0-4); Hematocrit 39.7 % (37-47); Hemoglobin 12.2 g/dl (12.0-16.0); Imm Gran Abs Auto 0.04 X10*3/uL (0.00-0.03); Imm Gran Pct Auto 0.6 % (0.0-0.4); Mean Corpuscular HGB Conc 30.7 g/dl (31.0-35.0); Mean Corpuscular Hemoglobin 30.2 pg (27.0-33.0); Mean Corpuscular Volume 98.3 fL (80-98); Mean Platelet Volume 9.8 fL (9.4-12.3); Monocytes Absolute Auto 0.7 X10*3/uL (0.1-1.2); Monocytes Percent Auto 10.4 % (2-11); Neutrophils Absolute Auto 4.7 X10*3/uL (2.0-8.3); Neutrophils Percent Auto 72.9 % (45-73); Platelet Count 153 X10*3/uL (160-400); Red Blood Count 4.04 X10*6/uL (4.20-5.50); Red Cell Distribution Width 14.6 % (11.0-16.0); White Blood Count 6.5 X10*3/uL (4.8-10.8)
[2020-12-08 14:42] LABS: ABG pCO2 104 mmHg (32-45)
[2020-12-08 14:48] LABS: Prothrombin Time 11.4 SEC (9.9-13.0)
[2020-12-08] MEDS: Piperacillin Sodium/Tazobactam 4.5 GM in 0.9 % Sodium Chloride 100 ML IV (14:50)
[2020-12-08 14:51] LABS: D Dimer 305 NG/ML; Partial Thromboplastin Time 28.6 SEC (24.1-38.0)
[2020-12-08 14:52] LABS: Lactic Acid 1.2 mmol/L (0.5-2.0)
--- NOTE | 2020-12-08 14:55 | PC.NURSE ---
ABX hung late to ensure two blood cultures were drawn prior. Second IV initiated to supply abx and fluids
[2020-12-08 14:59] LABS: COVID-19 Test Negative (Negative); IDNOW Serial# 9DD0AD1C
[2020-12-08 15:01] LABS: Alanine Aminotransferase 42 U/L (0-31); Albumin Level 3.6 g/dL (3.5-5.0); Alkaline Phosphatase 84 U/L (39-117); Anion Gap 10 (12-20); Aspartate Amino Transferase 43 U/L (5-31); Bilirubin Direct 0.2 mg/dL (0.0-0.5); Bilirubin Total 0.4 mg/dL (0.0-1.0); Blood Urea Nitrogen 27 mg/dL (9-16); Calcium 10.2 mg/dL (8.4-10.2); Carbon Dioxide 45 mmol/L (22-29); Chloride 91 mmol/L (96-108); Creatinine Clr Calc Pharmacy 35.2; Estimated Glomerular Filt Rate 50; Glucose Random 130 mg/dL (60-115); Potassium 5.1 mmol/L (3.3-5.1); Sodium 141 mmol/L (135-145); Total Protein 6.3 g/dL (6.5-8.0)
[2020-12-08 15:04] LABS: Troponin-I High Sensitivity 164.5 ng/L (<3.5-17.0)
--- NOTE | 2020-12-08 15:06 | PC.NURSE ---
RT called for ABG and to adjust pt non-rebreather. Change pt to High-flow oxygen. Pt SaO2 at 92%
[2020-12-08 15:55] LABS: Glucose Urine UA NEG (NEG); Leukocyte Esterase Urine TRACE (NEG); Nitrite Urine NEG (NEG); PH 5.5 (5.0-8.0); Specific Gravity - Urine >= 1.030 (1.005-1.025); UACC Culture Trigger YES; Urine Blood 2+ (NEG); Urine Ketones 5 MG/DL (NEG); Urine Protein 1+ MG/DL (NEG-TRACE)
[2020-12-08 15:58] LABS: Appearance Urine HAZY; Color Urine YELLOW
[2020-12-08 16:05] LABS: Bacteria Urine 2+ /LPF; RBC Urine 0-2 /HPF (0); Squamous Epithelial Cell Urine 3+ /LPF; WBC Urine 0-2 /HPF (0-4)
[2020-12-08] MEDS: Albumin Human 25 % 100 ML IV (16:16)
--- NOTE | 2020-12-08 16:57 | PC.NURSE ---
high pressure alarm of BiPap going off - case management director - mask loose to face. readjusted. Pt cold to the touch - rectal temp 98.8. given warm blankets. changes to forehead O2 - on BiPap SaO2 93%. informed
--- NOTE | 2020-12-08 17:35 | W.PM.CCCN ---
History of Present Illness Data of Consult Service Date: 12/08/20 Requesting physician: Emilio Johnson Primary Care Provider: Unknown Physician HPI I was called by Dr. Johnson to see Mrs. Valdez rice of hypoxemic respiratory failure. The patient is 70 year old woman with a past medical history of congestive heart failure, hypertension, hyperlipidemia, and severe peripheral vascular disease.? The patient is a heavy smoker, and judging by serum bicarb levels over the last few months, is probably a CO2 retainer. ?She had a non-STEMI this past October 17. ?She was seen in the ED at [place], and transferred to [facility]. ?At that time, a chest CT suggested a left lung mass.? She stopped smoking at that time. On November 21, she presented to [facility] with a post-obstructive pneumonia.? The patient underwent bronchoscopy by Dr. Stoddard on November 25.? See the operative report.? Briefly, the patient was found to have abnormal mucosa at the level of the distal left mainstem bronchus, with obstruction of the lingula and anterior segment of the left upper lobe.? Pathology diagnosed small-cell carcinoma the next day.? The patient was discharged home on November 26 after a 4 day course of IV Zosyn in the hospital.? She was discharged home to continue on oral Augmentin for another 10 days. The patient was seen in the office [address] Ceron for a follow-up visit.? At that time, the Sat was 94% on 2 L oxygen by nasal cannula. The patient returned to the ED today for evaluation of worsening shortness of breath over the past 2-3 days.? The patient reported that she was coughing up light yellow sputum.? No blood.? She is also complaining of chest pain.? She was seen today by visiting nurse at home who found that her oxygen saturation was 70% on room air.? An ambulance was called and patient was brought into the ED. In the ED, the sat was 92% on a non-rebreather face mask.? Respiratory effort was normal, and she was able to speak in complete sentences.? Lab w/u notable for white count 6500. BUN/creatinine 27/1.0 (baseline 16/0.7), bicarb 45, minor transaminase elevations, troponin 164, lactic acid 1.2.? ABG on ? FiO2 showed 7.33/104/74/+23.? EKG showed no acute ischemic changes, but she did have anterior T-wave inversion. Chest x-ray shows almost a complete whiteout on the left side.? She also has a likely right lower lobe infiltrate.? Notably, her chest x-ray of November 21 still showed good lung tissue in the upper half of her left lung. I saw the patient in the ED.? her respiratory rate and work of breathing are only mildly increased.? She was able to talk in full sentences.? She does not look toxic at all, and in fact does not look that on well. On high-flow nasal cannula 100%, sat was 95%.? Heart rate was 18, blood pressure 143/67.? Temperature was 98.6 degrees.? She had no jugular venous distension, and no peripheral edema.? Auscultation of the chest showed diminished breath sounds throughout, maybe more so on left side.? She had no wheezing, and the expiratory phase was normal. IMPRESSION: 1. Small cell lung cancer on left side.? I think her worsened chest x-ray now is because of worsening obstruction on the left side, and that probably accounts for most of her worsening shortness of breath and hypoxemia.? Based on the chest x-ray though, it is possible that she also has a new right lower lobe pneumonia, although lack of fever and lack of a white count argue against that. I would suggest a repeat CT scan of the chest abdomen and pelvis, the latter because she previously had liver lesions suggestive of metastases. I discussed the patient's situation with Dr. Ceron, and also with Dr. Perez.? It is our collective opinion that the patient needs to be referred for emergent radiation therapy.? I called over to [facility] and the patient was accepted in the ICU there by Dr. Dueñas, and in Radiation Oncology by Dr. Olivares. Discussed the above with Dr. Johnson.? He will make the arrangements. 2. Acute hypoxemic and hypercapnic respiratory failure. Recommend BiPAP. The patient can transfer to [facility] on BiPAP or CPAP. Time:? 90 minutes. [facility] Past Medical History Medical History Acute insomnia Atherosclerotic cardiovascular disease CAD (coronary artery disease) CHF (congestive heart failure) COPD (chronic obstructive pulmonary disease) COPD (chronic obstructive pulmonary disease) High cholesterol History of non-ST elevation myocardial infarction (NSTEMI) (~10/2020) HTN (hypertension) Hypoxemia Ischemic cardiomyopathy Lung cancer (~2020) Lung mass Personal history of nicotine dependence Pneumonia (~10/2020) Preoperative cardiovascular examination Small cell lung cancer (~2020) Small cell lung cancer, left upper lobe (~2020) Surgical History Surgical History History of angioplasty (~10/2020) History of bronchoscopy (~11/2020) Social History Social History Household Members: Spouse Household Members Other:: and son Housing: House Are you a primary career information specialist to a significant other at home: No Do you presently have visiting nurse or other home services: No Alcohol intake: never Patient Tobacco Use Status: Former Tobacco user Tobacco use type: Cigarette Cigarette Packs Per Day: 1 Years Smoked: 60 Use of substances other than those prescribed or required for medical reasons: No Advance Directives: Yes Advance Directives on File: Yes Advance Directives Date on File: 11/22/20 service: No Meds Allergies Allergy/AdvReac Type Severity Reaction Status Date / Time red dye Allergy Hives Verified 12/06/20 10:45 lisinopril AdvReac Cough Verified 12/06/20 10:45 hydrofluoroalkane Allergy tongue Uncoded 11/25/20 06:35 swelling Active Medications: Current Medications Generic Name Dose Route Start Last Admin Trade Name Freq PRN Reason Stop Dose Admin Sodium Chloride 1,000 mls @ 999 mls/hr 12/08/20 17:02 Ns IV 12/08/20 18:02 .Q1H1M STA Pharmacy Consult 1 each 12/08/20 16:28 Consult Rx Perform Med Rec MISCELLANE ONCE PRN Consult order Home Medications Medication Instructions Recorded Confirmed Last Taken Type atorvastatin 80 mg tablet 80 mg PO DAILY 11/21/20 12/08/20 12/07/20 History fluticasone propionate 50 1 spray INTRANASAL DAILY 11/21/20 12/08/20 12/07/20 History mcg/actuation nasal spray,suspension loratadine 10 mg tablet (Claritin) 10 mg PO DAILY 11/21/20 12/08/20 12/07/20 History losartan 25 mg tablet 25 mg PO DAILY 11/21/20 12/08/20 12/07/20 History albuterol sulfate 90 mcg/actuation 2 puff INHALATION Q4-6H PRN 12/08/20 12/08/20 12/07/20 History aerosol inhaler amoxicillin 875 mg-potassium 1 tab PO BID 12/08/20 12/08/20 12/08/20 History clavulanate 125 mg tablet aspirin 81 mg tablet,delayed 81 mg PO DAILY 12/08/20 12/08/20 12/07/20 History release calcium carbonate 600 mg (1,500 1 tab PO DAILY 12/08/20 12/08/20 12/07/20 History mg)-vitamin D3 200 unit tablet carvedilol 12.5 mg tablet 1 tab PO BID 12/08/20 12/08/20 12/07/20 History furosemide 40 mg tablet 1 tab PO DAILY 12/08/20 12/08/20 12/08/20 History magnesium oxide 400 mg PO DAILY 12/08/20 12/08/20 12/07/20 History omeprazole 20 mg capsule,delayed 1 cap PO DAILY@0630 12/08/20 12/08/20 12/08/20 History release tiotropium bromide 2.5 2 puff INHALATION DAILY 12/08/20 12/08/20 12/07/20 History mcg/actuation mist for inhalation (Spiriva Respimat) Physical Exam Vital Signs: Vital Signs: Last Vital Signs Temp 98.8 F 12/08/20 16:58 Pulse 86 12/08/20 17:21 Resp 16 12/08/20 17:21 BP 104/38 L 12/08/20 16:58 Pulse Ox 91 L 12/08/20 17:21 Oxygen Flow Rate 12 12/08/20 13:42 Body Mass Index 23.4 Results Labs CBC & Chem 7: 12/08/20 14:32 12/08/20 14:32 Labs: Short CBC 12/08/20 Range/Units 14:32 WBC 6.5 (4.8-10.8) X10*3/uL Hgb 12.2 (12.0-16.0) g/dl Hct 39.7 (37-47) % Plt Count 153 L (160-400) X10*3/uL BMP 12/08/20 14:32 Sodium 141 Potassium 5.1 Chloride 91 L Carbon Dioxide 45 H* BUN 27 H D Creatinine 1.07 Calcium 10.2 D Liver Function 12/08/20 Range/Units 14:32 Total Bilirubin 0.4 (0.0-1.0) mg/dL Direct Bilirubin 0.2 (0.0-0.5) mg/dL AST 43 H D (5-31) U/L ALT 42 H (0-31) U/L Alkaline Phosphatase 84 D (39-117) U/L Albumin 3.6 (3.5-5.0) g/dL Urine 12/08/20 Range/Units 15:46 Urine Color YELLOW Urine Appearance HAZY Urine pH 5.5 (5.0-8.0) Ur Specific [place] >= 1.030 H (1.005-1.025) Urine Protein 1+ H (NEG-TRACE) MG/DL Urine Glucose (UA) NEG (NEG) MG/DL
--- NOTE | 2020-12-08 17:48 | PC.NURSE ---
@ [id number] LEONELA FROM [facility] CALLS FOR FACE SHEET TO BE FAXED TO [phone] THEN ASKS FOR RN AUGIE FOR REPORT, AUGIE TAKES OVER CALL RIGHT AWAY PER DR CAVAZOS PT ACCEPTED BY DR RENAE HERNANDEZ TO ICU REQUESTING RAD DISC FOR DATES OCTOBER 17, NOVEMBER 21 AND TODAY
[2020-12-08] MEDS: 0.9 % Sodium Chloride 1,000 ML 999 ML IV (17:50)
[2020-12-08 18:06] LABS: Troponin-I High Sensitivity 291.1 ng/L (<3.5-17.0)
--- NOTE | 2020-12-08 18:54 | PC.NURSE ---
held Diomox as pt pressure SBP 103
--- NOTE | 2020-12-08 19:01 | PC.NURSE ---
BP remains low after 3L fluid and albumin, notified, no new orders given. BP 89/39
[2020-12-08] MEDS: LORazepam 2 MG/ML VIAL 1 MG IVPUSH (19:37)
== END 2020-12-08 20:33 | disposition short-term general hospital (02) ==
PROVIDERS: Emergency Provider Emergency Medicine Emergency Medical Services
DX: C34.12 Malignant neoplasm of upper lobe, left bronchus or lung (principal); J18.8 Other pneumonia, unspecified organism; J96.02 Acute respiratory failure with hypercapnia; J96.01 Acute respiratory failure with hypoxia; Z87.01 Personal history of pneumonia (recurrent); Z20.822 Contact with and (suspected) exposure to COVID-19
CPT/HCPCS: 36415; 71045; 71250; 74176; 80048; 80076; 81001; 82803; 83605; 84484; 85025; 85379; 85610; 85730; 86850; 86900; 86901; 87040; 87086; 87635; 93005; 94660; 96361; 96365; 96367; 96375; 99285; 99291; J2060; J2543; P9047